=== PATIENT | female | born 1985 | race Hispanic/Latino ===

== ENCOUNTER 2018-06-24 02:34 | Emergency (ER) | payer SELFPAY ==
[2018-06-24 03:16] LABS: Absolute Lymphocytes (CBC) 2.6 K/uL (0.7-4.9); Absolute Monocytes 0.6 K/uL (0.1-1.3); Absolute Neutrophil 6.5 K/uL (1.8-8.0); Basophils % 0.5 % (0-1.3); Eosinophils % 1.4 % (0-4.4); Hematocrit 40.7 % (36.0-45.0); Lymphocytes % 26.3 % (15.3-44.8); MCV 86.8 fL (80-100); MPV 8.3 fL (7.6-11.3); Monocytes % 5.8 % (3.3-12.3); RBC Red Blood Cell Count 4.68 M/uL (3.86-4.86)
[2018-06-24 03:33] LABS: Albumin 3.6 g/dL (3.4-5.0); Bilirubin Direct 0.2 mg/dL (0-0.2); Bilirubin Total 0.6 mg/dL (0.2-1.0); Potassium 3.4 mmol/L (3.5-5.1); Protein, Total 7.2 g/dL (6.4-8.2)
[2018-06-24 05:14] LABS: Urine Blood 1+ (NEG); Urine Glucose NEGATIVE (NEG); Urine Protein NEGATIVE (NEG); Urine pH 5.5 (5.0-7.0)
--- NOTE | 2018-06-24 06:39 | EDPHYS ---
Physician Documentation [facility] Name: Milli Seymour Age: 32 yrs Sex: Female : 1985 Arrival Date: 06/24/2018 Time: 02:38 Bed 2 Private MD: ED Physician Arnol Philippe HPI: 06/24 03:49 This 32 yrs old Female presents to ER via Ambulatory with complaints of tw4 Abdominal Pain. 03:49 The patient presents with abdominal pain. Onset: The symptoms/episode began/occurred tw4 today. The symptoms do not radiate. Associated signs and symptoms: none. The symptoms are described as dull. Modifying factors: The symptoms are alleviated by nothing, the symptoms are aggravated by alcohol. The patient has not experienced similar symptoms in the past. CATERING [place]: 02:48 LMP 06/17/2018 bb Historical: - Allergies: 02:48 No Known Allergies; bb - Home Meds: 02:48 None [Active]; bb - PMHx: 02:48 None; bb - PSHx: 02:48 None; bb - Immunization history:: Adult Immunizations up to date. - Social history:: Smoking status: Patient/guardian denies using tobacco, Patient/guardian denies using alcohol. - Ebola Screening: : No symptoms or risks identified at this time. ROS: 03:49 Constitutional: Negative for fever, chills, and weight loss, Cardiovascular: Negative tw4 for chest pain, palpitations, and edema, Respiratory: Negative for shortness of breath, cough, wheezing, and pleuritic chest pain. 03:49 Back: Negative for injury and pain, MS/Extremity: Negative for injury and deformity, Skin: Negative for injury, rash, and discoloration, Neuro: Negative for headache, weakness, numbness, tingling, and seizure. 03:49 Abdomen/GI: Positive for abdominal pain, Negative for nausea and vomiting, nausea, vomiting, and diarrhea, nausea, vomiting. Exam: 03:49 Constitutional: This is a well developed, well nourished patient who is awake, alert, tw4 and in no acute distress. Head/Face: Normocephalic, atraumatic. Chest/axilla: Normal chest wall appearance and motion. Nontender with no deformity. No lesions are appreciated. Cardiovascular: Regular rate and rhythm with a normal S1 and S2. No gallops, murmurs, or rubs. Normal PMI, no JVD. No pulse deficits. Respiratory: Lungs have equal breath sounds bilaterally, clear to auscultation and percussion. No rales, rhonchi or wheezes noted. No increased work of breathing, no retractions or nasal flaring. 03:49 MS/ Extremity: Pulses equal, no cyanosis. Neurovascular intact. Full, normal range of motion. Neuro: Awake and alert, GCS 15, oriented to person, place, time, and situation. Cranial nerves II-XII grossly intact. Motor strength 5/5 in all extremities. Sensory grossly intact. Cerebellar exam normal. Normal gait. 03:49 Abdomen/GI: Inspection: abdomen appears normal, Bowel sounds: normal, Palpation: moderate abdominal tenderness, in all quadrants. Vital Signs: 02:48 BP 110 / 78; Pulse 72; Resp 16 S; Temp 98.4(O); Pulse Ox 99% on R/A; Weight 74.84 kg bb (R); Height 5 ft. 2 in. (157.48 cm) (R); Pain 10/10; 03:15 BP 103 / 72; Pulse 63; Resp 18; Pulse Ox 98% on R/A; ea 04:58 BP 100 / 63; Pulse 78; Resp 18; Pulse Ox 99% on R/A; ea 05:55 BP 105 / 71; Pulse 76; Resp 18; Pulse Ox 99% on R/A; ea 02:48 Body Mass Index 30.18 (74.84 kg, 157.48 cm) bb MDM: 03:03 Patient medically screened. 06/24 02:54 Order name: Basic Metabolic Panel; Complete Time: 03:40 ao 06/24 03:40 Interpretation: K 3.4; CL 109; GLUC 70; GFR 84. tw4 06/24 02:54 Order name: CBC with Diff; Complete Time: 03:40 ao 06/24 02:54 Order name: Creatinine for Radiology; Complete Time: 03:40 ao 06/24 02:54 Order name: Hepatic Function; Complete Time: 03:40 ao 06/24 03:41 Interpretation: GLOB 3.6; A/G 1.0. 4 06/24 02:54 Order name: Lipase; Complete Time: 03:40 ao 06/24 03:41 Interpretation: Within normal limits: LIP 105. tw4 06/24 04:07 Order name: Urine Dipstick--Ancillary (enter results); Complete Time: 05:49 cc 06/24 02:54 Order name: IV Saline Lock; Complete Time: 02:54 ao 06/24 02:54 Order name: Labs collected and sent; Complete Time: 03:16 ao 06/24 03:42 Order name: CT Abd/Pelvis - W/Contrast tw4 06/24 03:52 Order name: Urine Test (obtain specimen); Complete Time: 04:05 cc 06/24 03:54 Order name: Urine Dipstick-Ancillary (obtain specimen); Complete Time: 04:05 cc 06/24 04:07 Order name: Urine --Ancillary (enter results); Complete Time: 05:49 cc Administered Medications: 06:43 Drug: TORadol 30 mg Route: IVP; Site: right antecubital; ao 07:00 Follow up: Response: No adverse reaction ao Disposition: 06/24/18 06:38 Discharged to Home. Impression: Other ovarian cysts. - Condition is Stable. - Discharge Instructions: Ovarian Cyst, Ovarian Cyst, Xlla-qc-Lost. - Prescriptions for Ibuprofen 800 mg Oral Tablet - take 1 tablet by ORAL route every 8 hours As needed take with food; 30 tablet. Tylenol- Codeine #4 300-60 mg Oral Tablet - take 1 tablet by ORAL route every 6 hours As needed; 6 tablet. - Medication Reconciliation Form, Thank You Letter, Antibiotic Education, Prescription Opioid Use form. - Follow up: Private Physician; When: Upon discharge from the Emergency Department; Reason: Recheck today's complaints, Continuance of care. - Problem is new. - Symptoms have improved. Signatures: Dispatcher [employer] EDMS Zayda Quach RN RN bb Christian, Chelsea cc Page, Corey, PA PA cp Ortiz, Alex, RN RN ao Wadley, Terrence, MD MD tw4 Corrections: (The following items were deleted from the chart) 07:02 06:38 06/24/2018 06:38 Discharged to Home. Impression: Other ovarian cysts. Condition ao is Stable. Forms are Medication Reconciliation Form, Thank You Letter, Antibiotic Education, Prescription Opioid Use. Follow up: Private Physician; When: Upon discharge from the Emergency Department; Reason: Recheck today's complaints, Continuance of care. Problem is new. Symptoms have improved. tw4
--- NOTE | 2018-06-24 06:39 | ER ---
Nurse's Notes [facility] Name: Milli Seymour Age: 32 yrs Sex: Female : 1985 Arrival Date: 06/24/2018 Time: 02:38 Bed 2 Private MD: Diagnosis: Other ovarian cysts Presentation: 06/24 02:46 Presenting complaint: Patient states: she is having abdominal pain x 4 days with bb abdominal distention, pt denies N/V/D, denies fever or dysuria, pain is constant and is currently 10/10. Transition of care: patient was not received from another setting of care. Onset of symptoms was June 19, 2018. Risk Assessment: Do you want to hurt yourself or someone else? Patient reports no desire to harm self or others. Initial Sepsis Screen: Does the patient meet any 2 criteria? No. Patient's initial sepsis screen is negative. Does the patient have a suspected source of infection? No. Patient's initial sepsis screen is negative. Care prior to arrival: None. 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 - Social history:: Smoking status: Patient/guardian denies using tobacco, Patient/guardian denies using alcohol. - Ebola Screening: : No symptoms or risks identified at this time. Screenin:51 Abuse screen: Denies threats or abuse. Denies injuries from another. Nutritional ao screening: No deficits noted. Tuberculosis screening: No symptoms or risk factors identified. Fall Risk None identified. Assessment: 02:48 General: Appears in no apparent distress. comfortable, Behavior is calm, cooperative, ao appropriate for age. Pain: Complains of pain in abdomen Pain does not radiate. Pain currently is 8 out of 10 on a pain scale. Neuro: Level of Consciousness is awake, alert, obeys commands, Oriented to person, place, time, situation, Appropriate for age Moves all extremities. Full function Speech is normal, Facial symmetry appears normal. Cardiovascular: Capillary refill < 3 seconds Patient's skin is warm and dry. Respiratory: Airway is patent Respiratory effort is even, unlabored, Respiratory pattern is regular, symmetrical. GI: Abdomen is distended, Bowel sounds present X 4 quads. Abd is soft and non tender Reports lower abdominal pain, nausea, Pain is 8 out of 10 on a pain scale. : No signs and/or symptoms were reported regarding the genitourinary system. EENT: No signs and/or symptoms were reported regarding the EENT system. Derm: Skin is intact, Skin is pink, warm \T\ dry. normal, Skin temperature is warm. Musculoskeletal: No signs and/or symptoms reported regarding the musculoskeletal system. Circulation, motion, and sensation intact. Range of motion: intact in all extremities. 03:55 Reassessment: Patient and/or family updated on plan of care and expected duration. Pain ea level reassessed. Patient is alert, oriented x 3, equal unlabored respirations, skin warm/dry/pink. 04:06 Reassessment: Patient and/or family updated on plan of care and expected duration. Pain ea level reassessed. Patient is alert, oriented x 3, equal unlabored respirations, skin warm/dry/pink. Pt taken to CT. 04:25 Reassessment: Patient and/or family updated on plan of care and expected duration. Pain ea level reassessed. Patient is alert, oriented x 3, equal unlabored respirations, skin warm/dry/pink. returned from CT. 05:55 Reassessment: Patient and/or family updated on plan of care and expected duration. Pain ea level reassessed. Patient is alert, oriented x 3, equal unlabored respirations, skin warm/dry/pink. Vital Signs: 02:48 BP 110 / 78; Pulse 72; Resp 16 S; Temp 98.4(O); Pulse Ox 99% on R/A; Weight 74.84 kg bb (R); Height 5 ft. 2 in. (157.48 cm) (R); Pain 10/10; 03:15 BP 103 / 72; Pulse 63; Resp 18; Pulse Ox 98% on R/A; ea 04:58 BP 100 / 63; Pulse 78; Resp 18; Pulse Ox 99% on R/A; ea 05:55 BP 105 / 71; Pulse 76; Resp 18; Pulse Ox 99% on R/A; ea 02:48 Body Mass Index 30.18 (74.84 kg, 157.48 cm) bb ED Course: 02:38 Patient arrived in ED. do 02:43 Ismael Genao, RN is Primary Nurse. ao 02:48 Triage completed. bb 02:48 Arm band placed on Patient placed in an exam room, on a stretcher, on pulse oximetry. bb 02:50 Inserted saline lock: 20 gauge in right antecubital area, using aseptic technique. jb5 Blood collected. 02:51 Patient has correct armband on for positive identification. Pulse ox on. NIBP on. ao 03:03 Arnol Philippe MD is Attending Physician. tw4 03:53 Radiology exam delayed due to test not completed at this time. kw1 04:[address] via wheelchair. kw1 04:19 CT Abd/Pelvis - W/Contrast In Process Unspecified. EDMS 04:21 CT completed. Patient tolerated procedure well. Patient moved back from CT. kw1 07:00 No provider procedures requiring assistance completed. IV discontinued, intact, ao bleeding controlled, No redness/swelling at site. Pressure dressing applied. Administered Medications: 06:43 Drug: TORadol 30 mg Route: IVP; Site: right antecubital; ao 07:00 Follow up: Response: No adverse reaction ao Outcome: 06:38 Discharge ordered by . tw4 07:00 Discharged to home ambulatory. ao 07:00 Condition: stable 07:00 Discharge instructions given to patient, Instructed on discharge instructions, follow up and referral plans. Demonstrated understanding of instructions, follow-up care, medications, Prescriptions given X 2. 07:02 Patient left the ED. ao Signatures: Dispatcher [employer] Zayda Seals, RN Ismael Perez, RN RN Irma Dumas Jennifer jb5 Viola Maria RN Viktoriya Pablo ea kw1 Arnol Philippe MD MD tw4
[2018-06-24] MEDS ORDERED: KETOROLAC 30 MG/ML INJ ONE (06:48)
--- NOTE | 2018-06-24 08:19 | RAD REPORT ---
EXAM DESCRIPTION: CTAbdomen Pelvis W Contrast - 06/24/2018 6:02 am CLINICAL HISTORY: Abdominal pain. ABD PAIN COMPARISON: No comparisons TECHNIQUE: Biphasic CT imaging of the abdomen and pelvis was performed with 100 ml non-ionic IV cont rast. All CT scans are performed using dose optimization technique as appropriate and may include automated exposure control or mA/KV adjustment according to patient size. FINDINGS: The lung bases are clear. The liver, spleen, pancreas, adrenal glands and kidneys are within normal limits. No bowel obstruction, free air, free fluid or abscess. Small fat containing umbilical hernia. The jerel endix is normal. No evidence of significant lymphadenopathy. No suspicious bony findings. Tubal ligation clips noted. 4.8 x 2.3 cm hypodensity in the left adnexa probably represents an ovarian cyst. IMPRESSION: 4.8 x 2.3 cm left ovarian cyst suspected.
== END 2018-06-24 07:02 | disposition home or self-care (01) ==
LOC: ER 02:34
DX: N83.299 Other ovarian cyst, unspecified side (principal)
CPT/HCPCS: 36415; 74177; 80048; 80076; 81003; 81025; 83690; 85025; 96374; 99284; Q9967

== ENCOUNTER 2018-12-11 23:33 | Emergency (ER) | payer SELFPAY ==
[2018-12-12 03:08] LABS: Absolute Lymphocytes (CBC) 3.5 K/uL (0.7-4.9); Absolute Monocytes 0.7 K/uL (0.1-1.3); Absolute Neutrophil 6.3 K/uL (1.8-8.0); Basophils % 0.8 % (0-1.3); Eosinophils % 2.4 % (0-4.4); Hematocrit 41.3 % (36.0-45.0); Lymphocytes % 31.9 % (15.3-44.8); MPV 8.8 fL (7.6-11.3); Monocytes % 6.8 % (3.3-12.3); RBC Red Blood Cell Count 4.77 M/uL (3.86-4.86)
[2018-12-12 03:23] LABS: BUN Blood Urea Nitrogen 12 mg/dL (7-18); Bicarbonate 27 mmol/L (21-32); Glucose Level 93 mg/dL (74-106); Potassium 3.6 mmol/L (3.5-5.1); Sodium Level 141 mmol/L (136-145)
[2018-12-12 03:42] LABS: Urine Blood NEGATIVE (NEG); Urine Glucose NEGATIVE (NEG); Urine Protein NEGATIVE (NEG); Urine Specific Gravity 1.015 (1.005-1.030)
--- NOTE | 2018-12-12 03:46 | EDPHYS ---
Physician Documentation [facility] Name: Milli Seymour Age: 33 yrs Sex: Female : 1985 Arrival Date: 12/11/2018 Time: 23:44 Bed 2 Private MD: ED Physician Jatin Chavez HPI: 12/12 03:41 This 33 yrs old Female presents to ER via Ambulatory with complaints of Flank gs Pain. 03:41 The patient complains of pain in the left low back. The pain radiates to the abdomen. gs Onset: The symptoms/episode began/occurred 2 day(s) ago. Modifying factors: the symptoms are aggravated by movement. Associated signs and symptoms: Pertinent negatives: headache, hematuria, pain radiating to the lower extremities. Severity of pain: At its worst the pain was moderate in the emergency department the pain is unchanged. The patient has experienced similar episodes in the past, a few times. 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 - Social history:: Smoking status: Patient/guardian denies using tobacco. - Ebola Screening: : Patient denies exposure to infectious person Patient denies travel to an Ebola-affected area in the 21 days before illness onset. ROS: 12/12 03:41 All other systems are negative. gs Exam: 03:41 Head/Face: Normocephalic, atraumatic. Eyes: Pupils equal round and reactive to light, gs extra-ocular motions intact. Lids and lashes normal. Conjunctiva and sclera are non-icteric and not injected. Cornea within normal limits. Periorbital areas with no swelling, redness, or edema. ENT: Nares patent. No nasal discharge, no septal abnormalities noted. Tympanic membranes are normal and external auditory canals are clear. Oropharynx with no redness, swelling, or masses, exudates, or evidence of obstruction, uvula midline. Mucous membranes moist. Neck: Trachea midline, no thyromegaly or masses palpated, and no cervical lymphadenopathy. Supple, full range of motion without nuchal rigidity, or vertebral point tenderness. No Meningismus. Chest/axilla: Normal chest wall appearance and motion. Nontender with no deformity. No lesions are appreciated. Cardiovascular: Regular rate and rhythm with a normal S1 and S2. No gallops, murmurs, or rubs. Normal PMI, no JVD. No pulse deficits. Respiratory: Lungs have equal breath sounds bilaterally, clear to auscultation and percussion. No rales, rhonchi or wheezes noted. No increased work of breathing, no retractions or nasal flaring. Abdomen/GI: Soft, non-tender, with normal bowel sounds. No distension or tympany. No guarding or rebound. No evidence of tenderness throughout. Skin: Warm, dry with normal turgor. Normal color with no rashes, no lesions, and no evidence of cellulitis. MS/ Extremity: Pulses equal, no cyanosis. Neurovascular intact. Full, normal range of motion. Neuro: Awake and alert, GCS 15, oriented to person, place, time, and situation. Cranial nerves II-XII grossly intact. Motor strength 5/5 in all extremities. Sensory grossly intact. Cerebellar exam normal. Normal gait. 03:41 Constitutional: The patient appears alert, awake. 03:41 Back: pain, that is mild, CVA tenderness, that is mild, is noted on the left. Vital Signs: 12/11 23:59 BP 105 / 70; Pulse 82; Resp 18; Temp 97.2; Pulse Ox 99% on R/A; Weight 65.77 kg; Height aa1 5 ft. 2 in. (157.48 cm); Pain 10/10; 12/12 01:45 BP 96 / 60; Pulse 51; Resp 16 S; Pulse Ox 100% on R/A; jd3 03:26 BP 92 / 61; Pulse 56; Resp 16 S; Pulse Ox 99% on R/A; jd3 12/11 23:59 Body Mass Index 26.52 (65.77 kg, 157.48 cm) aa1 MDM: 02:11 Patient medically screened. 03:41 Differential diagnosis: nephrolithiasis, pyelonephritis, UTI, ECTOPIC. Data reviewed: vital signs, nurses notes, lab test result(s), radiologic studies. Counseling: I had a detailed discussion with the patient and/or guardian regarding: the historical points, exam findings, and any diagnostic results supporting the discharge/admit diagnosis, lab results, radiology results, the need for outpatient follow up. Response to treatment: the patient's symptoms have markedly improved after treatment, and as a result, I will discharge patient. 12/12 02:12 Order name: CBC with Diff 12/12 02:12 Order name: Basic Metabolic Panel 12/12 02:12 Order name: Urine Microscopic Only 12/12 02:12 Order name: CT Stone Protocol 12/12 02:36 Order name: Urine Dipstick--Ancillary (enter results) [facility] 12/12 02:36 Order name: Urine --Ancillary (enter results) [facility] 12/12 02:12 Order name: Urine Test (obtain specimen); Complete Time: 03:04 12/12 02:12 Order name: Urine Dipstick-Ancillary (obtain specimen); Complete Time: 03:04 Administered Medications: No medications were administered Disposition: 12/12/18 03:45 Discharged to Home. Impression: Low back pain. - Condition is Stable. - Discharge Instructions: Back Pain, Adult. - Prescriptions for Naprosyn 500 mg Oral Tablet - take 1 tablet by ORAL route 2 times per day take with food; 20 tablet. - Medication Reconciliation Form, Thank You Letter, Antibiotic Education, Prescription Opioid Use, Work release form form. - Follow up: Private Physician; When: 2 - 3 days; Reason: Re-evaluation by your physician. Signatures: Dispatcher [employer] Amanda Valverde RN RN aa1 Jatin Chavez MD MD Hector Cornelius RN RN jd3 Corrections: (The following items were deleted from the chart) 04:06 03:45 12/12/2018 03:45 Discharged to Home. Impression: Low back pain. Condition is jd3 Stable. Forms are Medication Reconciliation Form, Thank You Letter, Antibiotic Education, Prescription Opioid Use. Follow up: Private Physician; When: 2 - 3 days; Reason: Re-evaluation by your physician. gs
--- NOTE | 2018-12-12 03:46 | ER ---
Nurse's Notes [facility] Name: Milli Seymour Age: 33 yrs Sex: Female : 1985 Arrival Date: 12/11/2018 Time: 23:44 Bed 2 Private MD: Diagnosis: Low back pain Presentation: 12/11 23:58 Presenting complaint: Patient states: L flank pain since yesterday morning. Denies N/V aa1 or difficulty urinating. Transition of care: patient was not received from another setting of care. Onset of symptoms was December 10, 2018. Risk Assessment: Do you want to hurt yourself or someone else? Patient reports no desire to harm self or others. Initial Sepsis Screen: Does the patient meet any 2 criteria? No. Patient's initial sepsis screen is negative. Does the patient have a suspected source of infection? No. Patient's initial sepsis screen is negative. Care prior to arrival: None. 23:58 Method Of Arrival: Ambulatory aa1 23:58 Acuity: YAEL 3 aa1 Triage Assessment: 23:59 General: Appears in no apparent distress. uncomfortable, Behavior is calm, cooperative, aa1 appropriate for age. 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 - Social history:: Smoking status: Patient/guardian denies using tobacco. - Ebola Screening: : Patient denies exposure to infectious person Patient denies travel to an Ebola-affected area in the 21 days before illness onset. Screenin/28 00:34 Abuse screen: Denies threats or abuse. Nutritional screening: No deficits noted. jd3 Tuberculosis screening: No symptoms or risk factors identified. Fall Risk Ambulatory Aid- None/Bed Rest/Nurse Assist (0 pts). Gait- Normal/Bed Rest/Wheelchair (0 pts) Mental Status- Oriented to own ability (0 pts). Total Moreau Fall Scale indicates No Risk (0-24 pts). Assessment: 00:33 General: Appears in no apparent distress. uncomfortable, Behavior is calm, cooperative, jd3 appropriate for age, Reports pain with palpation to left flank. Pain: Complains of pain in left flank Pain radiates to anterior aspect of left lateral abdomen Quality of pain is described as sharp, tender. Neuro: Level of Consciousness is awake, alert, obeys commands, Oriented to person, place, time, situation, Appropriate for age. Cardiovascular: Capillary refill < 3 seconds Patient's skin is warm and dry. Respiratory: Airway is patent Respiratory effort is even, unlabored, Respiratory pattern is regular, symmetrical. GI: Abdomen is round non-distended, Bowel sounds present X 4 quads. Abd is soft and non tender X 4 quads. Patient currently denies nausea, vomiting. : No signs and/or symptoms were reported regarding the genitourinary system. EENT: No signs and/or symptoms were reported regarding the EENT system. Derm: Skin is intact, Skin is dry, Skin is normal, Skin temperature is warm. Musculoskeletal: Circulation, motion, and sensation intact. Range of motion: intact in all extremities. 01:41 Reassessment: Patient appears in no apparent distress at this time. Patient and/or jd3 family updated on plan of care and expected duration. Pain level reassessed. Patient is alert, oriented x 3, equal unlabored respirations, skin warm/dry/pink. 03:26 Reassessment: Patient appears in no apparent distress at this time. Patient and/or jd3 family updated on plan of care and expected duration. Pain level reassessed. Patient is alert, oriented x 3, equal unlabored respirations, skin warm/dry/pink. 03:52 Reassessment: Patient appears in no apparent distress at this time. Patient and/or jd3 family updated on plan of care and expected duration. Pain level reassessed. Patient is alert, oriented x 3, equal unlabored respirations, skin warm/dry/pink. Vital Signs: 12/11 23:59 BP 105 / 70; Pulse 82; Resp 18; Temp 97.2; Pulse Ox 99% on R/A; Weight 65.77 kg; Height aa1 5 ft. 2 in. (157.48 cm); Pain 10; 12/12 01:45 BP 96 / 60; Pulse 51; Resp 16 S; Pulse Ox 100% on R/A; jd3 03:26 BP 92 / 61; Pulse 56; Resp 16 S; Pulse Ox 99% on R/A; jd3 12/11 23:59 Body Mass Index 26.52 (65.77 kg, 157.48 cm) aa1 ED Course: 12/11 23:44 Patient arrived in ED. es 23:59 Triage completed. aa1 23:59 Arm band placed on left wrist. Patient placed in waiting room, Patient notified of wait aa1 time. 12/12 00:24 Hector Cornelius RN is Primary Nurse. jd3 00:27 Jacek Wagner PA is PHCP. [facility] [place] 00:27 Jatin Chavez MD is Attending Physician. [facility] 00:35 Patient has correct armband on for positive identification. Bed in low position. Call jd3 light in reach. Side rails up X 1. Adult w/ patient. 01:22 Jatin Chavez MD is Attending Physician. 02:35 Inserted saline lock: 20 gauge in right antecubital area, using aseptic technique. jd3 Blood collected. 02:39 CT completed. Patient tolerated procedure well. Patient moved to CT via wheelchair. Patient moved back from CT. 02:47 CT Stone Protocol In Process Unspecified. EDMS 04:05 No provider procedures requiring assistance completed. IV discontinued, intact, jd3 bleeding controlled, No redness/swelling at site. Pressure dressing applied. Administered Medications: No medications were administered Outcome: 03:45 Discharge ordered by . 04:05 Discharged to home via wheelchair, with family. jd3 04:05 Condition: stable 04:05 Discharge instructions given to patient, Instructed on discharge instructions, follow up and referral plans. medication usage, Demonstrated understanding of instructions, follow-up care, medications, Prescriptions given X 1. 04:06 Patient left the ED. jd3 Signatures: Dispatcher [employer] EDMS Amanda Carter RN RN aa1 Jacek Wagner PA PA [facility] Ashley Gannon Ervin Jatin Chavez MD MD Hector Cornelius RN RN jd3 Corrections: (The following items were deleted from the chart) 00:41 00:33 General: Appears in no apparent distress. uncomfortable, Behavior is calm, jd3 cooperative, appropriate for age, jd3 00:41 00:33 Pain: Complains of pain in left flank Pain radiates to anterior aspect of left jd3 lateral abdomen Quality of pain is described as sharp, tender, jd3
[2018-12-12 04:05] LABS: Urine Bacteria 20-50 /HPF (<20); Urine Culture Reflex Order REFLEXED; Urine RBC <5 /HPF (NONE SEEN)
--- NOTE | 2018-12-12 12:58 | RAD REPORT ---
EXAM DESCRIPTION: CT - Stone Protocol - 12/12/2018 4:59 am CLINICAL HISTORY: The patient is 33 years old and is Female; FLANK PAIN TECHNIQUE: Axial computed tomography images of the abdomen and pelvis without intravenous contrast. Sagittal and coronal reformatted images were created and reviewed. This CT exam was performed usi ng one or more of the following dose reduction techniques: automated exposure control, adjustment o f the mA and/or kV according to patient size, and/or use of iterative reconstruction technique. COMPARISON: No relevant prior studies available. FINDINGS: LUNG BASES: Unremarkable. No mass. No consolidation. ABDOMEN: LIVER: Homogeneous without focal mass. GALLBLADDER AND BILE DUCTS: The gallbladder is contracted. PANCREAS: Unremarkable. No ductal dilation. SPLEEN: Unremarkable. ADRENALS: Unremarkable. No mass. KIDNEYS AND URETERS: No obstructing stones. No hydronephrosis. STOMACH AND BOWEL: The stomach is distended with food contents. The small bowel is normal in saeid iber. A moderate amount of stool is present throughout the colon. There is no mucosal thickening or e vidence of bowel obstruction. PELVIS: APPENDIX: The appendix is normal in caliber without surrounding inflammation. BLADDER: Unremarkable. No stones. REPRODUCTIVE: Evidence of tubal ligation is noted. Both sets of tubal clips appear to be malposi tioned. The uterus and ovaries are unremarkable. ABDOMEN and PELVIS: INTRAPERITONEAL SPACE: Trace free fluid is present within the pelvis which is likely physiologic . No free air. BONES/JOINTS: No acute fracture. SOFT TISSUES: Small fat containing umbilical hernia is present. VASCULATURE: Unremarkable. No abdominal aortic aneurysm. LYMPH NODES: Unremarkable. No enlarged lymph nodes. IMPRESSION: No acute findings on this noncontrasted CT of the abdomen and pelvis to explain the nichol ent's symptoms. Electronically signed by: Echo Tavarez MD 12/12/2018 2:54 AM CDT Due to temporary technical issues with the PACS/Fluency reporting system, reports are being signed by the in house radiologist as a courtesy to ensure prompt reporting. The interpreting radiologist is f ully responsible for the content of the report.
== END 2018-12-12 04:06 | disposition home or self-care (01) ==
LOC: ER 23:33
DX: M54.5 Low back pain (principal)
CPT/HCPCS: 36415; 74176; 76377; 80048; 81003; 81015; 81025; 85025; 87086; 87088; 99284

== ENCOUNTER 2021-11-16 07:15 | Emergency (ER) | payer SELFPAY ==
--- OUTSIDE RECORDS SUMMARY | 2021-11-16 07:18 | XMS REPORT | Continuity of Care Document ---
:1985 Author Organization [facility] t Address [address] [place] [address] Care Team Providers Name Role Phone Pcp, Does Not Have A Primary Care Physician Doctor Unassigned, Name Attending Clinician Unavailable Michi DURAND S Attending Clinician Problems Condition Condition Condition Status Onset Resolution Last Treating Co mments Source Name Details Category Date Date Treatment Clinician Date Encounter Encounter Disease Active Uni vers for for 1-25 ity of initial initial 00:00: [place] prescripti prescripti 00 Me dical on of on of Branch injectable injectable contracept contracept alirio alirio Allergies, Adverse Reactions, Alerts Allergy Allergy Status Severity Reaction(s) Onset Inactive Treating Comm ents Source Name Type Date Date Clinician NO KNOWN Drug Active Univers ALLERGIE Class ity of S [facility] Social History Social Habit Start Date Stop Date Quantity Comments Source Alcohol intake 2019-10-28 2019-10-28 0 /d [facility] 00:00:00 00:00:00 [facility] Tobacco use and 2015-06-21 2015-06-21 Never used [facility] exposure 00:00:00 00:00:00 [facility] Sex Ass[birth year] [facility] 00:00:00 00:00:00 [facility] Smoking Status Start Date Stop Date Source Never smoker [facility] Medications Ordered Filled Start Stop Current Ordering Indication Dosage Frequency Signature Comments Components Source Medication Medication Date Date Medication? Clinician (SIG) Name Name ketorolac 2020- No 30mg 30 mg, Unive rs (TORADOL) 10-28 Slow IV ity of injection 10:45: 09:34 [place], [place] 30 mg 00 :00 ONCE, 1 Medical dose, Tue Branch 10/28/19 at 0445, JEREMY
Fa culty member approving Restricted medication : REDDY HWANG traMADol 2019-0 Yes [id number] 50mg Take 1 Un roger (ULTRAM) 50 2-11 tablet by ity of mg tablet 00:00: mouth 00 every 6 Medical (six) Branch hours as needed for Pain (scale 7-10). naproxen 2019- Yes [id number] 550mg Take 1 U nivers sodium 550 2-11 tablet by ity of mg tablet 00:00: mouth 2 (two) Medical times Branch daily with meals. traMADol 2019-0 Yes [id number] 50mg Take 1 Un roger (ULTRAM) 50 2-11 tablet by ity of mg tablet 00:00: mouth 00 every 6 Medical (six) Branch hours as needed for Pain (scale 7-10). naproxen 2019-0 Yes [id number] 550mg Take 1 U nivers sodium 550 2-11 tablet by ity of mg tablet 00:00: mouth (two) Medical times Branch daily with meals. medroxyPROG 2014-09 Yes [id number] 150mg Univers ESTERone 0-05 ity of (DEPO-PROVE 20:45: [place] RA) 00 Medical injection Branch 150 mg medroxyPROG 2014-09 Yes [id number] 150mg Univers ESTERone 0-05 ity of (DEPO-PROVE 20:45: [place] RA) 00 Medical injection Branch 150 mg Immunizations Ordered Filled Immunization Date Status Comments [facility] e Immunization Name Name Tdap 2015-06-21 Completed [facility] 00:00:00 [place] [facility] TDAP 2015-06-21 Completed [facility] 00:00:00 [facility] Vital Signs Vital Name Observation Time Observation Value Comments Source Systolic blood 2019-10-28 09:00:00 113 mm[Hg] Univer sity of pressure [facility] Diastolic blood 2019-10-28 09:00:00 81 mm[Hg] Unive rsity of pressure [facility] Heart rate 2019-10-28 09:00:00 77 /min Universi ty of [facility] Respiratory rate 2019-10-28 09:00:00 18 /min [facility] Oxygen saturation in 2019-10-28 09:00:00 97 /min [facility] Arterial blood by [facility] Pulse oximetry Branch Body height 2019-10-28 08:57:00 157.5 cm [facility] Body weight 2019-10-28 08:57:00 58.514 kg [facility] BMI 2019-10-28 08:57:00 23.59 kg/m2 [facility] Procedures Procedure Date / Time Performing Clinician Source Performed DISCLOSURE AND CONSENT, 2021-10-18 06:01:00 Doctor Unassigned, N o [facility] MEDICAL AND SURGICAL Name Medical [facility] PROCEDURES LIPASE 2019-10-28 09:01:00 Reddy Hwang [facility] COMP. METABOLIC PANEL 2019-10-28 09:01:00 Reddy Hwang [facility] ([id number]) [facility] CBC WITH DIFFERENTIAL 2019-10-28 09:01:00 Reddy Hwang [facility] URINALYSIS 2019-10-28 09:01:00 Reddy Hwang [facility] POCT TEST 2019-10-28 09:00:00 Reddy Hwang [facility] NOTICE OF PRIVACY 2019-10-28 08:46:30 Doctor Unassyolette, No Univ [facility] PRACTICES [facility] CONSENT/REFUSAL FOR 2019-10-28 08:46:14 [facility]igned, [facility] Encounters Start End Encounter Admission Attending Care Care Encounter Source Date/Time Date/Time Type Type Clinicians Facility Department ID 2021-10-18 2021-10-18 Orders Doctor PAUL [id number] Univers 00:00:00 00:00:00 Only Unassigned, CHERIE [id number] ity [facility] [id number] [facility] 009 Branch 2020-04-23 2020-04-23 Outpatient R [facility] [id number] Univers 16:20:00 16:20:[facility] 2020-04-23 2020-04-23 Outpatient R [facility] [id number] Univers 16:20:00 16:20:00 [facility] 2019-10-28 2019-10-28 Emergency Michi [facility] [id number] Univers 02:51:21 03:48:00 [id number] [id number] [place] [id number] Branch Results Test Description Test Time Test Comments Results Result Comments Source Complete Metabolic Panel 2019-10-28 09:25:00 Test Item Value Reference Range Interpretation Comme nts NA (test code = 3674096086) 140 mmol/L 135-145 K (test code = 4157336102) 3.7 mmol/L 3.5-5 CL (test code = 1350978958) 108 mmol/L 98-108 CO2 TOTAL (test code = 24 mmol/L 23-31 0491829636) AGAP (test code = 3379944314) 2-16 BUN (test code = 4081491303) 10 mg/dL 7-23 GLUCOSE (test code = 9120040318) 107 mg/dL 70-110 CREATININE (test code = 0.63 mg/dL 0.5-1.04 4332701132) TOTAL BILI (test code = 0.5 mg/dL 0.1-1.4 3774228264) CALCIUM (test code = 8028499797) 9.4 mg/dL 8.6-10.6 T PROTEIN (test code = 7.5 g/dL 6.3-8.2 8926227976) ALBUMIN (test code = 9729784510) 4.5 g/dL 3.5-5 ALK PHOS (test code = 9450577487) 74 U/L 34-122 ALTv (test code = 1742-6) 32 U/L 5-35 AST(SGOT) (test code = 31 U/L 13-40 4180162852) eGFR Calculation (Non- mL/min/1.73m2 [place]) (test code = 5690975520) eGFR Calculation ( mL/min/1.73m2 [place]) (test code = 7483498343) MATEO (test code = MATEO) Association of Glomerular Filtration Rate (GFR) and Staging of Kidney Disease* + +--------- + ----+| GFR (mL/min/1.73 m2) ?| With Kidney Damage ?| ?Without Kidney Damage+ +--- + +| ?>90 ?| ?Stage one ?| ? Normal ?+ +-------- + -----+| ?60-89 ?| ?Stage two ?| ? Decreased GFR ? + +--------- + ----+| ?30-59 ?| ?Stage three ?| ? Stage three ? + +--------- + ----+| ?15-29 ?| ?Stage four ? | ? Stage four ?+ +-------- + -----+| ?<15 (or dialysis) ? ?| ?Stage five ? | ? Stage five ?+ +-------- + -----+ *Each stage assumes the associated GFR level has been in effect for at least three months. ?Stages 1 to 5, with or without kidney disease, indicate chronic kidney disease. Notes: Determination of stages one and two (with eGFR >59mL/min/1.73 m2) requires estimation of kidney damage for at least three months as defined by structural or functional abnormalities of the kidney, manifested by either:Pathological abnormalities or Markers of kidney damage (including abnormalities in the composition of the blood or urine or abnormalities in imaging tests). [facility] [id number] 09:25:00 Test Item Value Reference Range Interpretation Comments LIPASE (test code = 1815098615) 102 U/L 0-220 Lab Interpretation (test code = Normal 02494-4) [facility] 09:23:00 Test Item Value Reference Range Interpretation Comments APPEARANCE (test code = Clear Clear 1257969468) COLOR (test code = Yellow Yellow 0832897099) PH (test code = 4.8-8.0 9937006691) SP GRAVITY (test code = 1.003-1.030 9950012780) GLU U QUAL (test code = Normal Normal 9152467066) BLOOD (test code = 2+ Negative A 7839909584) KETONES (test code = Negative Negative 3335581954) PROTEIN (test code = Negative Negative 2887-8) UROBILIN (test code = Normal Normal 3191066303) BILIRUBIN (test code = Negative Negative 2484080406) NITRITE (test code = Negative Negative 7675235133) LEUK MEHDI (test code = Negative Negative 1039286016) RBC/HPF (test code = See_Comment [Autom ated message] 5752336735) The system [employer] generated this result transmitted ref erence range: 0 - 3 HP F. The reference range was not used to int erpret this result as normal/abnormal . WBC/HPF (test code = See_Comment [Autom ated message] 0870515722) The system [employer] generated this result transmitted ref erence range: 0 - 5 HP F. The reference range was not used to int erpret this result as normal/abnormal . BACTERIA (test code = Few Negative A 1783022655) MUCOUS (test code = Slight Negative LPF A 5503186109) SQ EPITH (test code = HPF 5671551770) Lab Interpretation (test Abnormal code = 26582-0) [facility] WITH [id number] 09:10:00 Test Item Value Reference Range Interpretation Comments WBC (test code = See_Comment [Automated 6690-2) message] The sy stem which generated this result transmitted reference range : 4.30 - 11.10 10*3/?L. The reference range was not used to interpret this result as normal/abnormal . RBC (test code = See_Comment [Automated 789-8) message] The sy stem which generated this result transmitted reference range : 3.93 - 5.25 10*6/?L. The reference range was not used to interpret this result as normal/abnormal . HGB (test code = 13.5 g/dL 11.6-15 718-7) HCT (test code = 40.8 % 35.7-45.2 4544-3) MCV (test code = 87.7 fL 80.6-95.5 787-2) MCH (test code = 29.0 pg 25.9-32.8 785-6) MCHC (test code = 33.1 g/dL 31.6-35.1 786-4) RDW-SD (test code = 39.2 fL 39-49.9 53367-9) RDW-CV (test code = 12.1 % 12-15.5 788-0) PLT (test code = See_Comment [Automated 777-3) message] The sy stem which generated this result transmitted reference range : 166 - 358 10*3/ ?L. The reference r rachana was not used to interpret this result as normal/abnormal . MPV (test code = 9.2 fL 9.5-12.9 L 24225-0) NRBC/100 WBC (test See_Comment [Automat ed code = 1775182163) message] The system which generated this result transmitted reference range : 0.0 - 10.0 /100 WBCs. The refer ence range was not u sed to interpret th is result as normal/abnormal . NRBC x10^3 (test code <0.01 See_Comment [Auto mated = 0110088853) message] The s ystem which generated this result transmitted reference range : 10*3/?L. The reference range was not used to interpret this result as normal/abnormal . GRAN MAT (NEUT) % 65.3 % (test code = 770-8) IMM GRAN % (test code 0.50 % = 7480691254) LYMPH % (test code = 25.2 % 736-9) MONO % (test code = 7.1 % 5905-5) EOS % (test code = 1.5 % 713-8) BASO % (test code = 0.4 % 706-2) GRAN MAT x10^3(ANC) 7.13 10*3/uL 1.88-7.09 H (test code = 0268330980) IMM GRAN x10^3 (test 0.05 10*3/uL 0-0.06 code = 8552959488) LYMPH x10^3 (test code 2.75 10*3/uL 1.32-3.29 = 731-0) MONO x10^3 (test code 0.77 10*3/uL 0.33-0.92 = 742-7) EOS x10^3 (test code = 0.16 10*3/uL 0.03-0.39 711-2) BASO x10^3 (test code 0.04 10*3/uL 0.01-0.07 = 704-7) Lab Interpretation Abnormal (test code = 77354-7) [facility] [id number] 09:00:00 Test Item Value Reference Range Interpretation Comments POCT PREG (test code = 1605) Negative On board controls acceptable with Present C Line (test code = 3574) POCT PREG LOT # (test code = 3575) [id number] POCT PREG TEST DATE (test 04/16/2021 code = 3576) Lab Interpretation (test code = Normal 98070-6) [facility]"
[2021-11-16 07:54] LABS: Hematocrit 42.5 % (36.0-45.0); Lymphocytes % 24.1 % (15.3-44.8); MPV 8.1 fL (7.6-11.3); RBC Red Blood Cell Count 4.99 M/uL (3.86-4.86)
[2021-11-16 07:56] LABS: Protime INR 1.08
[2021-11-16 08:16] LABS: ALT/SGPT 27 U/L (12-78); AST/SGOT 20 U/L (15-37); Albumin 3.6 g/dL (3.4-5.0); Alkaline Phosphatase 106 U/L (45-117); BUN Blood Urea Nitrogen 12 mg/dL (7-18); Bicarbonate 22 mmol/L (21-32); Bilirubin Direct 0.1 mg/dL (0-0.2); Bilirubin Total 0.5 mg/dL (0.2-1.0); Glucose Level 106 mg/dL (74-106); Magnesium 2.6 mg/dL (1.8-2.4); NT PRO-BNP 95 pg/mL (<125); Potassium 3.6 mmol/L (3.5-5.1); Protein, Total 7.9 g/dL (6.4-8.2); Sodium Level 141 mmol/L (136-145)
[2021-11-16 08:18] LABS: Troponin High Sensitivity < 3.00 pg/mL (<58.9)
[2021-11-16] MEDS ORDERED: MORPHINE 4 MG/ML SYR ONE (08:20)
[2021-11-16] MEDS ORDERED: NA CHLORIDE 0.9% 1,000 ML ONE (08:20)
[2021-11-16] MEDS ORDERED: ONDANSETRON 4 MG/2 ML VIAL ONE (08:20)
--- NOTE | 2021-11-16 08:26 | RAD REPORT ---
EXAM DESCRIPTION: RAD - Chest Single View - 11/16/2021 8:10 am CLINICAL HISTORY: CHEST PAIN COMPARISON: No comparisons FINDINGS: Lines: None. Lungs: No evidence of edema or pneumonia. Pleural: No significant pleural effusions or pneumothorax. Cardiac: The heart size is within normal limits. Bones: No acute fractures. Other: IMPRESSION: No acute cardiopulmonary disease.
--- NOTE | 2021-11-16 08:59 | RAD REPORT ---
EXAM DESCRIPTION: US - Abdomen Exam Limited - 11/16/2021 8:40 am CLINICAL HISTORY: gb COMPARISON: Stone Protocol dated 12/12/2018 FINDINGS: Gallbladder sludge is present. The gallbladder wall measures 4 millimeters and is borderli ne thickening. The common bile duct measures 4 millimeters. No shadowing stones are identified. No pe richolecystic fluid. IMPRESSION: Gallbladder sludge and mild gallbladder wall thickening. Neither findings are specific t o acute cholecystitis. If there is a high clinical concern for acute cholecystitis, could consider HI DA scan.
--- NOTE | 2021-11-16 09:35 | EDPHYS ---
Physician Documentation [facility] – [place], [place] Name: Milli Seymour Age: 36 yrs Sex: Female : 1985 Arrival Date: 11/16/2021 Time: 07:18 Bed 16 Private MD: ED Physician Linus Prado HPI: 11/16 08:11 This 36 yrs old Female presents to ER via Wheelchair with complaints of Cough, ma2 Congestion. 08:12 This 36 yrs old Female presents to ER via Wheelchair with complaints of ma2 epigastric pain. 08:12 56-year-old female with no past medical history here with epigastric pain radiates to ma2 the back patient states that she cannot take a deep breath it hurts to breathe, however she does not have cough shortness of breath or dyspnea. Patient vomited once. EMT I/99: 07:24 LMP 10/28/2021 jg9 Historical: - Allergies: 07:23 No Known Allergies; jg9 - PMHx: 07:23 None; jg9 - Immunization history:: Adult Immunizations Client reports having NOT received the Covid vaccine. Pneumococcal vaccine is up to date, Flu vaccine is up to date. - Social history:: Smoking status: Patient denies any tobacco usage or history of. - Family history:: not pertinent. ROS: 08:12 Constitutional: Negative for fever, chills, and weight loss. ma2 08:12 All other systems are negative. Exam: 08:12 Constitutional: This is a well developed, well nourished patient who is awake, alert, ma2 and in no acute distress. Head/Face: Normocephalic, atraumatic. Eyes: Pupils equal round and reactive to light, extra-ocular motions intact. Lids and lashes normal. Conjunctiva and sclera are non-icteric and not injected. Cornea within normal limits. Periorbital areas with no swelling, redness, or edema. ENT: Nares patent. No nasal discharge, no septal abnormalities noted. Tympanic membranes are normal and external auditory canals are clear. Oropharynx with no redness, swelling, or masses, exudates, or evidence of obstruction, uvula midline. Mucous membranes moist. Neck: Trachea midline, no thyromegaly or masses palpated, and no cervical lymphadenopathy. Supple, full range of motion without nuchal rigidity, or vertebral point tenderness. No Meningismus. Chest/axilla: Normal chest wall appearance and motion. Nontender with no deformity. No lesions are appreciated. Cardiovascular: Regular rate and rhythm with a normal S1 and S2. No gallops, murmurs, or rubs. Normal PMI, no JVD. No pulse deficits. Respiratory: Lungs have equal breath sounds bilaterally, clear to auscultation and percussion. No rales, rhonchi or wheezes noted. No increased work of breathing, no retractions or nasal flaring. Abdomen/GI: Epigastric tenderness, soft, non-tender, with normal bowel sounds. No distension or tympany. No guarding or rebound. No evidence of tenderness throughout. Skin: Warm, dry with normal turgor. Normal color with no rashes, no lesions, and no evidence of cellulitis. MS/ Extremity: Pulses equal, no cyanosis. Neurovascular intact. Full, normal range of motion. Neuro: Awake and alert, GCS 15, oriented to person, place, time, and situation. Cranial nerves II-XII grossly intact. Motor strength 5/5 in all extremities. Sensory grossly intact. Cerebellar exam normal. Normal gait. Vital Signs: 07:21 BP 104 / 75; Pulse 73; Resp 20 S; Temp 98.1; Pulse Ox 100% on R/A; Weight 75.75 kg; jg9 Height 5 ft. 2 in. (157.48 cm); 07:35 BP 109 / 75; Pulse 78; Resp 18; Pulse Ox 100% on R/A; ww 10:38 BP 96 / 63; Pulse 64; Resp 22; Pulse Ox 100% on R/A; ww 07:21 Body Mass Index 30.54 (75.75 kg, 157.48 cm) jg9 MDM: 07:32 Patient medically screened. ma2 09:32 Differential Diagnosis: Other Differential diagnoses include gastritis, hepatitis, ma2 musculoskeletal pain, ultrasound shows borderline gallbladder wall thickening and possible sludge, recommends HIDA scan if clinically warranted, however at this time patient symptom has resolved she would like to be discharged she does not want any more testing, I discussed need to follow-up with general surgeon in 1 to 2 days, and return to ER for any worsening pain or fever. Patient understands all instruction. Data reviewed: vital signs, nurses notes, EMS record. Counseling: I had a detailed discussion with the patient and/or guardian regarding: the historical points, exam findings, and any diagnostic results supporting the discharge/admit diagnosis, the presence of at least one elevated blood pressure reading (>120/80) during this emergency department visit, lab results, radiology results, the need for outpatient follow up. Response to treatment: the patient's symptoms have resolved after treatment. 11/16 07:28 Order name: Basic Metabolic Panel [facility] [place] 11/16 07:28 Order name: CBC with Diff; Complete Time: 08:12 jg9 11/16 07:28 Order name: LFT's [facility] [place] 11/16 07:28 Order name: Magnesium 9 11/16 07:28 Order name: NT PRO-BNP; Complete Time: 09:00 j9 11/16 07:28 Order name: PT-INR; Complete Time: 08:12 jg9 11/16 07:28 Order name: Troponin HS; Complete Time: 09:00 j9 11/16 07:28 Order name: XRAY Chest (1 view); Complete Time: 09:00 jg9 11/16 07:29 Order name: Basic Metabolic Panel; Complete Time: 09:00 EDMS 11/16 07:29 Order name: Liver (Hepatic) Function; Complete Time: 09:00 EDMS 11/16 07:29 Order name: Magnesium; Complete Time: 09:00 EDMS 11/16 08:07 Order name: Lipase ma2 11/16 08:07 Order name: US Abdomen Limited; Complete Time: 09:00 ma2 11/16 07:28 Order name: EKG; Complete Time: 07:29 jg9 11/16 07:28 Order name: Cardiac monitoring; Complete Time: 07:48 jg9 11/16 07:28 Order name: EKG - Nurse/Tech; Complete Time: 07:48 jg9 11/16 07:28 Order name: IV Saline Lock; Complete Time: 07:48 jg9 11/16 07:28 Order name: Labs collected and sent; Complete Time: 07:48 jg9 11/16 07:28 Order name: O2 Per Protocol; Complete Time: 07:48 jg9 11/16 07:28 Order name: O2 Sat Monitoring; Complete Time: 07:48 jg9 Administered Medications: 08:45 Drug: Zofran (Ondansetron) 4 mg Route: IVP; Site: right antecubital; ww 09:03 Drug: morphine 4 mg Route: IVP; Site: right antecubital; ww 09:13 Drug: NS 0.9% 1000 ml Route: IV; Rate: 1 bolus; Site: left forearm; ww Disposition Summary: 11/16/21 09:34 Discharge Ordered Location: Home ma2 Condition: Stable ma2 Diagnosis - Upper abdominal pain, unspecified ma2 - Other cholelithiasis without obstruction ma2 Followup: ma2 - With: Private Physician - When: Tomorrow - Reason: If symptoms return, Continuance of care Followup: ma2 - With: Evelio Madera MD - When: Tomorrow - Reason: If symptoms return, Continuance of care Discharge Instructions: - Discharge Summary Sheet ma2 - Abdominal Pain, Adult ma2 - Cholelithiasis, Iuno-wu-[id number] ma2 Forms: - Medication Reconciliation Form ma2 - Thank You Letter ma2 - Antibiotic Education ma2 - Prescription Opioid Use ma2 - Work release form Prescriptions: - Zofran 4 mg Oral Tablet - take 1 tablet by ORAL route every 12 hours As needed; 20 tablet; Refills: 0, ma2 Product Selection Permitted - Diclofenac Sodium 75 mg Oral Tablet Sustained Release - take 1 tablet by ORAL route 2 times per day; 30 tablet; Refills: 0, Product ma2 Selection Permitted - Pepcid 20 mg Oral Tablet - take 1 tablet by ORAL route once daily; 20 tablet; Refills: 0, Product ma2 Selection Permitted Signatures: Dispatcher [employer] EDLinus Shepard MD MD ma2 Mel Stevens RN RN jg9 Trupti Garcia, RN RN ww
--- NOTE | 2021-11-16 09:35 | ER ---
Nurse's Notes [facility] Name: Milli Seymour Age: 36 yrs Sex: Female : 1985 Arrival Date: 11/16/2021 Time: 07:18 Bed 16 Private MD: Diagnosis: Upper abdominal pain, unspecified;Other cholelithiasis without obstruction Presentation: 11/16 07:21 Chief complaint: Patient states: I woke up this morning around 645 trying to get my jg9 kids ready for school and I was having shortness of breath and chest pain that radiated down into the abdominal region. Patient denies any recent illnesses or being around anyone that is sick. Coronavirus screen: Vaccine status: Patient reports being unvaccinated. Ebola Screen: Patient negative for fever greater than or equal to 101.5 degrees Fahrenheit, and additional compatible Ebola Virus Disease symptoms Patient denies exposure to infectious person. Patient denies travel to an Ebola-affected area in the 21 days before illness onset. Initial Sepsis Screen: Does the patient meet any 2 criteria? No. Patient's initial sepsis screen is negative. Does the patient have a suspected source of infection? No. Patient's initial sepsis screen is negative. Risk Assessment: Do you want to hurt yourself or someone else? Patient reports no desire to harm self or others. 07:21 Method Of Arrival: Wheelchair jg9 07:21 Acuity: YAEL 3 jg9 Triage Assessment: 07:24 General: Appears uncomfortable, Behavior is calm, cooperative. Pain: Complains of pain jg9 in back, chest and abdomen. Respiratory: Reports shortness of breath since 0645 am Breath sounds are clear bilaterally. HARDWOOD SAWYER: 07:24 LMP 10/28/2021 jg9 Historical: - Allergies: 07:23 No Known Allergies; jg9 - PMHx: 07:23 None; jg9 - Immunization history:: Adult Immunizations Client reports having NOT received the Covid vaccine. Pneumococcal vaccine is up to date, Flu vaccine is up to date. - Social history:: Smoking status: Patient denies any tobacco usage or history of. - Family history:: not pertinent. Screenin:24 Abuse screen: Denies threats or abuse. Denies injuries from another. Nutritional jg9 screening: No deficits noted. Tuberculosis screening: No symptoms or risk factors identified. Fall Risk None identified. Assessment: 07:25 Cardiovascular: Respiratory: Airway is patent. 9 07:35 General: Appears in no apparent distress. Behavior is cooperative. Pain: Complains of ww pain in back and chest. Neuro: Level of Consciousness is awake, alert, obeys commands, Oriented to person, place, time, situation, Moves all extremities. Speech is normal. Cardiovascular: Reports chest pain, Capillary refill < 3 seconds Patient's skin is warm and dry. Rhythm is regular Chest pain is located in anterior posterior substernal area. Respiratory: Airway is patent Respiratory effort is even, unlabored, Respiratory pattern is regular, symmetrical. GI: No signs and/or symptoms were reported involving the gastrointestinal system. Abdomen is non-distended, Abd is soft and non tender X 4 quads. : No signs and/or symptoms were reported regarding the genitourinary system. EENT: No signs and/or symptoms were reported regarding the EENT system. Derm: Skin is intact, is healthy with good turgor, Skin is pink, warm \T\ dry. 08:30 Reassessment: Patient appears in no apparent distress at this time. No changes from previously documented assessment. Patient and/or family updated on plan of care and expected duration. Pain level reassessed. Patient is alert, oriented x 3, equal unlabored respirations, skin warm/dry/pink. 10:38 Reassessment: Patient appears in no apparent distress at this time. No changes from previously documented assessment. Patient and/or family updated on plan of care and expected duration. Pain level reassessed. Patient is alert, oriented x 3, equal unlabored respirations, skin warm/dry/pink. Vital Signs: 07:21 BP 104 / 75; Pulse 73; Resp 20 S; Temp 98.1; Pulse Ox 100% on R/A; Weight 75.75 kg; jg9 Height 5 ft. 2 in. (157.48 cm); 07:35 BP 109 / 75; Pulse 78; Resp 18; Pulse Ox 100% on R/A; ww 10:38 BP 96 / 63; Pulse 64; Resp 22; Pulse Ox 100% on R/A; ww 07:21 Body Mass Index 30.54 (75.75 kg, 157.48 cm) 9 ED Course: 07:18 Patient arrived in ED. mr 07:19 Linus Prado MD is Attending Physician. ma2 07:23 Triage completed. jg9 07:24 Arm band placed on right wrist. jg9 07:25 Patient has correct armband on for positive identification. jg9 07:35 teletypesetter monitor on. Pulse ox on. NIBP on. ww 07:35 Initial lab(s) drawn, by md, sent to lab. Inserted saline lock: 20 gauge in left ww antecubital area, using aseptic technique. Blood collected. 07:45 Trupti Garcia, RN is Primary Nurse. ww 07:48 Magnesium Sent. ww 07:48 LFT's Sent. ww 07:48 Basic Metabolic Panel Sent. ww 08:10 XRAY Chest (1 view) In Process Unspecified. EDMS 08:41 US Abdomen Limited In Process Unspecified. EDMS 09:34 Evelio Madera MD is Referral Physician. ma2 10:38 No provider procedures requiring assistance completed. intact, bleeding controlled, No ww redness/swelling at site. Pressure dressing applied. Administered Medications: 08:45 Drug: Zofran (Ondansetron) 4 mg Route: IVP; Site: right antecubital; ww 09:03 Drug: morphine 4 mg Route: IVP; Site: right antecubital; ww 09:13 Drug: NS 0.9% 1000 ml Route: IV; Rate: 1 bolus; Site: left forearm; ww Outcome: 09:34 Discharge ordered by . ma2 10:38 Discharged to home ambulatory, with family. ww 10:38 Condition: stable 10:38 Discharge instructions given to patient, family, Instructed on discharge instructions, follow up and referral plans. medication usage, safety practices, Demonstrated understanding of instructions, follow-up care, medications, Prescriptions given X 3. 10:39 Patient left the ED. Signatures: Dispatcher [employer] ELIUDWV June Hamilton mr Linus Prado MD MD ks2 Mel Stevens RN RN jg9 Trupti Garcia, SETH ANN
[2021-11-16 10:44] VITALS: TEMP 98.1; O2SAT 100
[2021-11-16 10:46] VITALS: BP 96/63
== END 2021-11-16 10:39 | disposition home or self-care (01) ==
LOC: ER 07:15
DX: K80.80 Other cholelithiasis without obstruction (principal)
CPT/HCPCS: 36415; 71045; 76705; 80048; 80076; 83690; 83735; 83880; 84484; 85025; 85610; 93005; 96374; 96375; 99284; J2405; J7030

== ENCOUNTER 2023-02-11 12:44 | Emergency (ER) | payer SELFPAY ==
--- OUTSIDE RECORDS SUMMARY | 2023-02-11 12:53 | XMS REPORT | Continuity of Care Document ---
:1985 Author Organization [facility] t Address [address] [facility] [address] [place] [id number] Care Team Providers Name Role Phone PCP, PATIENT DOES NOT HAVE A Primary Care Physician Unavaila CATRACHO Siddiqui Attending Clinician Unavailable CATRACHO DUNBAR Attending Clinician Unavailable Pcp, Patient Does Not Have A Attending Clinician [phone] Doctor Unassigned, [facility] Attending Clinician Unavailable TRUPTI SKINNER Attending Clinician Unavailable Trupti Skinner MD Attending Clinician Loren Hwang MD Attending Clinician TRUPTI SKINNER Admitting Clinician Unavailable Payers Payer Name Policy Type Policy Number Effective Date Expiration Date S ource Problems Condition Condition Condition Status Onset Resolution Last Treating Co mments Source Name Details Category Date Date Treatment Clinician Date Encounter Encounter Disease Active Uni vers for for 10-11 ity of initial initial 00:00: [place] prescripti prescripti 00 Me dical on of on of Branch injectable injectable contracept contracept alirio alirio Allergies, Adverse Reactions, Alerts Allergy Allergy Status Severity Reaction(s) Onset Inactive Treating Comm ents Source Name Type Date Date Clinician NO KNOWN Drug Active Univers ALLERGIE Class ity of S [facility] Social History Social Habit Start Date Stop Date Quantity Comments Source Exposure to Not sure [facility] SARS-CoV-2 (event) Medica l Branch Alcohol intake 2021-11-18 2021-11-18 0 /d [facility] 00:00:00 00:00:00 Medical Branch Tobacco use and 2015-06-21 2015-06-21 Never used [facility] exposure 00:00:00 00:00:00 Medical Branch Sex Ass[birth year] At [birth year] [facility] 00:00:00 00:00:00 Medical Branch Smoking Status Start Date Stop Date Source Never smoker [facility] Medical Branch Medications Ordered Filled Start Stop Current Ordering Indication Dosage Frequency Signature Comments Components Source Medication Medication Date Date Medication? Clinician (SIG) Name Name medroxyprog 2022-0 No 1mg/mL esterone 5-19 150 mg/mL 00:00: intramuscul 00 ar suspension Dose 2-0 No Unknown 5-19 00:00: 00 Dose 2-0 No Unknown 5-19 00:00: 00 Dose 2022-0 No Unknown 5-19 00:00: 00 Dose 2022-0 No Unknown 5-19 00:00: 00 Dose 2022-0 No Unknown 5-19 00:00: 00 Dose 2022-0 No Unknown 5-19 00:00: 00 Dose 2022-0 No Unknown 5-19 00:00: 00 Dose 2022-0 No Unknown 5-19 00:00: 00 Dose 2022-0 No Unknown 5-19 00:00: 00 Dose 2022-0 No Unknown 5-19 00:00: 00 Dose 2022-0 No Unknown 5-19 00:00: 00 Dose 2022-0 No Unknown 5-19 00:00: 00 Dose 2022-0 No Unknown 5-19 00:00: 00 Dose 2022-0 No Unknown 5-19 00:00: 00 Dose 2022-0 No Unknown 5-19 00:00: 00 Dose 2022-0 No Unknown 5-19 00:00: 00 Dose 2022-0 No Unknown 5-19 00:00: 00 Dose 2022-0 No Unknown 5-19 00:00: 00 Dose 2022-0 No Unknown 5-19 00:00: 00 medroxyprog 2022-0 No 1mg/mL esterone 5-19 150 mg/mL 00:00: intramuscul 00 ar suspension Dose 2-0 No Unknown 5-19 00:00: 00 Dose 2022-0 No Unknown 5-19 00:00: 00 Dose 2022-0 No Unknown 5-19 00:00: 00 Dose 2022-0 No Unknown 5-19 00:00: 00 Dose 2022-0 No Unknown 5-19 00:00: 00 Dose 2022-0 No Unknown 5-19 00:00: 00 Dose 2022-0 No Unknown 5-19 00:00: 00 Dose 2022-0 No Unknown 5-19 00:00: 00 Dose 2022-0 No Unknown 5-19 00:00: 00 Dose 2022-0 No Unknown 5-19 00:00: 00 Dose 2022-0 No Unknown 5-19 00:00: 00 Dose 2022-0 No Unknown 5-19 00:00: 00 Dose 2022-0 No Unknown 5-19 00:00: 00 Dose 2022-0 No Unknown 5-19 00:00: 00 Dose 2022-0 No Unknown 5-19 00:00: 00 Dose 2022-0 No Unknown 5-19 00:00: 00 Dose 2022-0 No Unknown 5-19 00:00: 00 Dose 2022-0 No Unknown 5-19 00:00: 00 Dose 2022-0 No Unknown 5-19 00:00: 00 Dose 2022-0 No Unknown 5-04 00:00: 00 Dose 2022-0 No Unknown 5-04 00:00: 00 Dose 2022-0 No Unknown 5-04 00:00: 00 Dose 2022-0 No Unknown 5-04 00:00: 00 Dose 2022-0 No Unknown 5-04 00:00: 00 Dose 2022-0 No Unknown 5-04 00:00: 00 Dose 2022-0 No Unknown 5-04 00:00: 00 Dose 2022-0 No Unknown 5-04 00:00: 00 Dose 2022-0 No Unknown 5-04 00:00: 00 Dose 2022-0 No Unknown 5-04 00:00: 00 Dose 2022-0 No Unknown 5-04 00:00: 00 Dose 2022-0 No Unknown 5-04 00:00: 00 Dose 2022-0 No Unknown 5-04 00:00: 00 Dose 2022-0 No Unknown 5-04 00:00: 00 Dose 2022-0 No Unknown 5-04 00:00: 00 Dose 2022-0 No Unknown 5-04 00:00: 00 Dose 2022-0 No Unknown 5-04 00:00: 00 Dose 2022-0 No Unknown 5-04 00:00: 00 Dose 2022-0 No Unknown 5-04 00:00: 00 Dose 2022-0 No Unknown 5-04 00:00: 00 Dose 2022-0 No Unknown 5-04 00:00: 00 Dose 2022-0 No Unknown 5-04 00:00: 00 Dose 2022-0 No Unknown 5-04 00:00: 00 Dose 2022-0 No Unknown 5-04 00:00: 00 Dose 2022-0 No Unknown 5-04 00:00: 00 Dose 2022-0 No Unknown 5-04 00:00: 00 Dose 2022-0 No Unknown 5-04 00:00: 00 Dose 2022-0 No Unknown 5-04 00:00: 00 Dose 2022-0 No Unknown 5-04 00:00: 00 Dose 2022-0 No Unknown 5-04 00:00: 00 Dose 2022-0 No Unknown 5-04 00:00: 00 Dose 2022-0 No Unknown 5-04 00:00: 00 Dose 2022-0 No Unknown 5-04 00:00: 00 Dose 2022-0 No Unknown 5-04 00:00: 00 Dose 2022-0 No Unknown 5-04 00:00: 00 Dose 2022-0 No Unknown 5-04 00:00: 00 Dose 2022-0 No Unknown 5-04 00:00: 00 Dose 2022-0 No Unknown 5-04 00:00: 00 Dose 2022-0 No Unknown 5-04 00:00: 00 Dose 2022-0 No Unknown 5-04 00:00: 00 Dose 2022-0 No Unknown 5-04 00:00: 00 Dose 2022-0 No Unknown 5-04 00:00: 00 Dose 2022-0 No Unknown 5-04 00:00: 00 Dose 2022-0 No Unknown 5-04 00:00: 00 Dose 2022-0 No Unknown 5-04 00:00: 00 Dose 2022-0 No Unknown 5-04 00:00: 00 Dose 2022-0 No Unknown 5-04 00:00: 00 Dose 2022-0 No Unknown 5-04 00:00: 00 Dose 2022-0 No Unknown 5-04 00:00: 00 Dose 2022-0 No Unknown 5-04 00:00: 00 Dose 2022-0 No Unknown 5-04 00:00: 00 Dose 2022-0 No Unknown 5-04 00:00: 00 Dose 2022-0 No Unknown 5-04 00:00: 00 Dose 2022-0 No Unknown 5-04 00:00: 00 Dose 2022-0 No Unknown 5-04 00:00: 00 Dose 2022-0 No Unknown 5-04 00:00: 00 Dose 2022-0 No Unknown 5-04 00:00: 00 Dose 2022-0 No Unknown 5-04 00:00: 00 Dose 2022-0 No Unknown 5-04 00:00: 00 Dose 2022-0 No Unknown 5-04 00:00: 00 Dose 2022-0 No Unknown 5-04 00:00: 00 Dose 2022-0 No Unknown 5-04 00:00: 00 Dose 2022-0 No Unknown 5-04 00:00: 00 Dose 2022-0 No Unknown 5-04 00:00: 00 Dose 2022-0 No Unknown 4-28 00:00: 00 Dose 2022-0 No Unknown 4-28 00:00: 00 Dose 2022-0 No Unknown 4-28 00:00: 00 Dose 2022-0 No Unknown 4-28 00:00: 00 Dose 2022-0 No Unknown 4-28 00:00: 00 Dose 2022-0 No Unknown 4-28 00:00: 00 Dose 2022-0 No Unknown 4-28 00:00: 00 Dose 2022-0 No Unknown 4-28 00:00: 00 Dose 2022-0 No Unknown 4-28 00:00: 00 Dose 2022-0 No Unknown 4-28 00:00: 00 Dose 2022-0 No Unknown 4-28 00:00: 00 Dose 2022-0 No Unknown 4-28 00:00: 00 Dose 2022-0 No Unknown 4-28 00:00: 00 Dose 2022-0 No Unknown 4-28 00:00: 00 Dose 2022-0 No Unknown 4-28 00:00: 00 Dose 2022-0 No Unknown 4-28 00:00: 00 Dose 2022-0 No Unknown 3-12 00:00: 00 Dose 2022-0 No Unknown 3-12 00:00: 00 Dose 2022-0 No Unknown 3-12 00:00: 00 Dose 2-0 No Unknown 3-12 00:00: 00 Dose 2-0 No Unknown 3-12 00:00: 00 Dose 2-0 No Unknown 3-12 00:00: 00 Dose 2-0 No Unknown 3-12 00:00: 00 Dose 2-0 No Unknown 3-12 00:00: 00 Dose 2-0 No Unknown 3-12 00:00: 00 Dose 2-0 No Unknown 3-12 00:00: 00 Dose 2-0 No Unknown 3-12 00:00: 00 Dose 2-0 No Unknown 3-12 00:00: 00 Dose 2-0 No Unknown 3-12 00:00: 00 Dose 2021-0 No Unknown 3-12 00:00: 00 Dose 2021-0 No Unknown 3-12 00:00: 00 Dose 2-0 No Unknown 3-12 00:00: 00 Dose 2-0 No Unknown 3-11 00:00: 00 Dose 2021-0 No Unknown 3-11 00:00: 00 Dose 2-0 No Unknown 3-11 00:00: 00 Dose 2-0 No Unknown 3-11 00:00: 00 Dose 2-0 No Unknown 3-11 00:00: 00 Dose 2021-0 No Unknown 3-11 00:00: 00 Dose 2-0 No Unknown 3-11 00:00: 00 Dose 2-0 No Unknown 3-11 00:00: 00 ondansetron 2021- No 4mg 4 mg, Slow Univers (ZOFRAN 11-19- IV Push, ity of (PF)) 07:00: 06:18 ONCE, 1 [place] injection 4 00 :00 dose, On Medi saeid mg 11/19/21 Branch at 0100, JEREMY morpHINE 2021- No 4mg 4 mg, Slow Un roger injection 4 11-19- IV Push, ity of mg 07:00: 06:19 ONCE, 1 [place] 00 :00 dose, On Medical 11/19/21 Branch at 0100, STAT iohexol 2021- No [id number] 120mL 120 mL, Univers (OMNIPAQUE 11-19-05 Intravenou it y of 350 06:55: 06:55 s, ONCE, 1 [place] BULK-150 00 :00 dose, On Medical mL) 11/19/21 Branch injection at 0100, 120 mL Routine sucralfate 2021-0 Yes [id number] 1g Take 1 Univers 1 gram 3-05 tablet by ity of tablet 00:00: mouth [place] 00 before Medical meals and Branch at bedtime. omeprazole 2021-0 Yes [id number] 20mg Take 1 Univers 20 mg 3-05 capsule by ity of capsule 00:00: mouth [place] 00 daily. Medical Branch traMADoL 2021-0 Yes [id number] 50mg Take 1 Univers (ULTRAM) 50 3-05 tablet by ity of mg tablet 00:00: mouth [place] 00 every 6 Medical (six) Branch hours as needed for Pain (scale 7-10). Indication s: acute pain sucralfate 2021-0 Yes [id number] 1g Take 1 Univers 1 gram 3-05 tablet by ity of tablet 00:00: mouth [place] 00 before Medical meals and Branch at bedtime. omeprazole 2021-0 Yes [id number] 20mg Take 1 Univers 20 mg 3-05 capsule by ity of capsule 00:00: mouth [place] 00 daily. Medical Branch traMADoL 2021-0 Yes [id number] 50mg Take 1 Univers (ULTRAM) 50 3-05 tablet by ity of mg tablet 00:00: mouth [place] 00 every 6 Medical (six) Branch hours as needed for Pain (scale 7-10). Indication s: acute pain sucralfate 2021-0 Yes [id number] 1g Take 1 Univers 1 gram 3-05 tablet by ity of tablet 00:00: mouth [place] 00 before Medical meals and Branch at bedtime. omeprazole 2021-0 Yes [id number] 20mg Take 1 Univers 20 mg 3-05 capsule by ity of capsule 00:00: mouth [place] 00 daily. Medical Branch traMADoL 2021-0 Yes [id number] 50mg Take 1 Univers (ULTRAM) 50 3-05 tablet by ity of mg tablet 00:00: mouth [place] 00 every 6 Medical (six) Branch hours as needed for Pain (scale 7-10). Indication s: acute pain medroxyprog 2020-0 No 1mg/mL esterone 5-07 150 mg/mL 00:00: intramuscul 00 ar suspension Dose 2020-0 No Unknown 5-07 00:00: 00 Dose 2020-0 No Unknown 5-07 00:00: 00 medroxyprog 2020-0 No 1mg/mL esterone 5-07 150 mg/mL 00:00: intramuscul 00 ar suspension medroxyprog 2020-0 No 1mg/mL esterone 4-30 150 mg/mL 00:00: intramuscul 00 ar syringe Dose 2020-0 No Unknown 4-30 00:00: 00 Dose 2020-0 No Unknown 4-30 00:00: 00 medroxyprog 2020-0 No 1mg/mL esterone 4-30 150 mg/mL 00:00: intramuscul 00 ar syringe ketorolac 2019- 2020- No 30mg 30 mg, Unive rs (TORADOL) 10-28 Slow IV ity of injection 10:45: 09:34 Push, [place] 30 mg 00 :00 ONCE, 1 Medical dose, Tue Branch 10/28/19 at 0445, JEREMY
Fa culty member approving Restricted medication : LOREN HWANG traMADol 2019-0 Yes [id number] 50mg Take 1 Un roger (ULTRAM) 50 2-11 tablet by ity of mg tablet 00:00: mouth every 6 Medical (six) Branch hours as needed for Pain (scale 7-10). naproxen 2020-0 Yes [id number] 550mg Take 1 U nivers sodium 550 2-11 tablet by ity of mg tablet 00:00: mouth (two) Medical times Branch daily with meals. traMADol 2020-0 Yes [id number] 50mg Take 1 Un orger (ULTRAM) 50 2-11 tablet by ity of mg tablet 00:00: mouth 00 every 6 Medical (six) Branch hours as needed for Pain (scale 7-10). naproxen 2020-0 Yes [id number] 550mg Take 1 U nivers sodium 550 2-11 tablet by ity of mg tablet 00:00: mouth (two) Medical times Branch daily with meals. naproxen 2020-0 Yes [id number] 550mg Take 1 U nivers sodium 550 2-11 tablet by ity of mg tablet 00:00: mouth (two) Medical times Branch daily with meals. naproxen 2020-0 Yes [id number] 550mg Take 1 U nivers sodium 550 2-11 tablet by ity of mg tablet 00:00: mouth 2 (two) Medical times Branch daily with meals. naproxen Yes [id number] 550mg Take 1 U nivers sodium 550 2-11 tablet by ity of mg tablet 00:00: mouth 2 (two) Medical times Branch daily with meals. traMADol 2021- No [id number] 50mg Take 1 U nivers (ULTRAM) 50 2-11 03-05 tablet by it y of mg tablet 00:00: 00:00 mouth [place] 00 :00 every 6 Medical (six) Branch hours as needed for Pain (scale 7-10). Cipro 500 0 No 1mg mg tablet - 00:00: 00 Cipro 500 0 No 1mg mg tablet 01-06 00:00: 00 Cipro 500 2016-0 No 1mg mg tablet 01-06 00:00: 00 Cipro 500 0 No 1mg mg tablet 01-06 00:00: 00 medroxyPROG 2014-09 Yes [id number] 150mg Univers ESTERone 0-05 ity of (DEPO-PROVE 20:45: [place] RA) 00 Medical injection Branch 150 mg medroxyPROG 2014-09 Yes [id number] 150mg Univers ESTERone 0-05 ity of (DEPO-PROVE 20:45: [place] RA) 00 Medical injection Branch 150 mg medroxyPROG 2014-09 Yes [id number] 150mg Univers ESTERone 0-05 ity of (DEPO-PROVE 20:45: [place] RA) 00 Medical injection Branch 150 mg medroxyPROG 2014-09 Yes [id number] 150mg Univers ESTERone 0-05 ity of (DEPO-PROVE 20:45: [place] RA) 00 Medical injection Branch 150 mg medroxyPROG 2014-09 Yes [id number] 150mg Univers ESTERone 0-05 ity of (DEPO-PROVE 20:45: [place] RA) 00 Medical injection Branch 150 mg Immunizations Ordered Filled Immunization Date Status Comments [facility] Immunization Name Name HPV9 2022-03-16 Completed 00:00:00 HPV9 2022-03-16 Completed 00:00:00 HPV9 2022-03-16 Completed 00:00:00 HPV9 2022-03-16 Completed 00:00:00 HPV9 2022-02-02 Completed 00:00:00 HPV9 2022-02-02 Completed 00:00:00 HPV9 2022-02-02 Completed 00:00:00 HPV9 2022-02-02 Completed 00:00:00 TDAP 2015-06-21 Completed University of 00:00:00 [place] [facility] Tdap 2015-06-21 Completed University of 00:00:00 [place] [facility] TDAP 2015-06-21 Completed University of 00:00:00 [place] [facility] TDAP 2015-06-21 Completed University of 00:00:00 [place] [facility] TDAP 2015-06-21 Completed University of 00:00:00 [facility] Vital Signs Vital Name Observation Time Observation Value Comments Source Systolic blood 2021-11-19 07:38:00 114 mm[Hg] Univer sity of pressure [facility] Diastolic blood 2021-11-19 07:38:00 66 mm[Hg] Unive rsity of [facility] Heart rate 2021-11-19 07:38:00 77 /min [facility] Body temperature 2021-11-19 07:38:00 [facility].67 [facility] Respiratory rate 2021-11-19 07:38:00 18 /min [facility] Oxygen saturation in 2021-11-19 07:38:00 97 /min University of Arterial blood by [place] [employer] Pulse oximetry Branch Body weight 2021-11-19 05:17:00 74.844 kg [facility] BMI 2021-11-19 05:17:00 30.18 kg/m2 [facility] Systolic blood 2019-10-28 09:00:00 113 mm[Hg] Univer sity of pressure [facility] Diastolic blood 2019-10-28 09:00:00 81 mm[Hg] Unive rsity of pressure [facility] Heart rate 2019-10-28 09:00:00 77 /min [facility] Respiratory rate 2019-10-28 09:00:00 18 /min [facility] Oxygen saturation in 2019-10-28 09:00:00 97 /min University of Arterial blood by [employer] Pulse oximetry Branch Body height 2019-10-28 08:57:00 157.5 cm [facility] Body weight 2019-10-28 08:57:00 58.514 kg [facility] BMI 2019-10-28 08:57:00 23.59 kg/m2 [facility] BP Systolic 2022-08-15 15:47:00 106 mm[Hg] BP Diastolic 2022-08-15 15:47:00 75 mm[Hg] Weight Measured 2022-08-15 15:47:00 162.60 pounds Height Measured 2022-08-15 15:47:00 51.00 inches Body Temperature 2022-08-15 15:47:00 97.60 degrees Heart Rate 2022-08-15 15:47:00 88.00 /min Respiratory Rate 2022-08-15 15:47:00 BP Systolic 2022-07-24 17:09:00 104 mm[Hg] BP Diastolic 2022-07-24 17:09:00 78 mm[Hg] Weight Measured 2022-07-24 17:09:00 154.00 pounds Height Measured 2022-07-24 17:09:00 51.00 inches Body Temperature 2022-07-24 17:09:00 97.70 degrees Heart Rate 2022-07-24 17:09:00 74.00 /min Respiratory Rate 2022-07-24 17:09:00 BP Systolic 2022-05-04 16:54:00 95 mm[Hg] BP Diastolic 2022-05-04 16:54:00 61 mm[Hg] Weight Measured 2022-05-04 16:54:00 148.40 pounds Height Measured 2022-05-04 16:54:00 51.00 inches Body Temperature 2022-05-04 16:54:00 97.50 degrees Heart Rate 2022-05-04 16:54:00 72.00 /min Respiratory Rate 2022-05-04 16:54:00 BP Systolic 2022-03-16 14:03:00 111 mm[Hg] BP Diastolic 2022-03-16 14:03:00 73 mm[Hg] Weight Measured 2022-03-16 14:03:00 147.40 pounds Height Measured 2022-03-16 14:03:00 51.00 inches Body Temperature 2022-03-16 14:03:00 98.30 degrees Heart Rate 2022-03-16 14:03:00 76.00 /min Respiratory Rate 2022-03-16 14:03:00 18.00 /min BP Systolic 2022-02-02 15:20:00 113 mm[Hg] BP Diastolic 2022-02-02 15:20:00 78 mm[Hg] Weight Measured 2022-02-02 15:20:00 148.00 pounds Height Measured 2022-02-02 15:20:00 51.00 inches Body Temperature 2022-02-02 15:20:00 98.20 degrees Heart Rate 2022-02-02 15:20:00 80.00 /min Respiratory Rate 2022-02-02 15:20:00 18.00 /min BP Systolic 2021-11-08 15:25:00 106 mm[Hg] BP Diastolic 2021-11-08 15:25:00 71 mm[Hg] Weight Measured 2021-11-08 15:25:00 999.99 pounds Height Measured 2021-11-08 15:25:00 51.00 inches Body Temperature 2021-11-08 15:25:00 98.80 degrees Heart Rate 2021-11-08 15:25:00 84.00 /min Respiratory Rate 2021-11-08 15:25:00 17.00 /min BP Systolic 2021-08-17 09:25:00 93 mm[Hg] BP Diastolic 2021-08-17 09:25:00 54 mm[Hg] Weight Measured 2021-08-17 09:25:00 158.40 pounds Height Measured 2021-08-17 09:25:00 51.00 inches Body Temperature 2021-08-17 09:25:00 98.10 degrees Heart Rate 2021-08-17 09:25:00 73.00 /min Respiratory Rate 2021-08-17 09:25:00 BP Systolic 2020-10-22 15:42:00 110 mm[Hg] BP Diastolic 2020-10-22 15:42:00 74 mm[Hg] Weight Measured 2020-10-22 15:42:00 153.40 pounds Height Measured 2020-10-22 15:42:00 51.00 inches Body Temperature 2020-10-22 15:42:00 Heart Rate 2020-10-22 15:42:00 98.00 /min Respiratory Rate 2020-10-22 15:42:00 16.00 /min Height Measured 2020-10-22 15:33:00 62.00 inches Body Temperature 2020-10-22 15:33:00 Heart Rate 2020-10-22 15:33:00 98.00 /min Respiratory Rate 2020-10-22 15:33:00 16.00 /min BP Systolic 2020-10-22 15:33:00 110 mm[Hg] BP Diastolic 2020-10-22 15:33:00 74 mm[Hg] Weight Measured 2020-10-22 15:33:00 153.40 pounds BP Systolic 2020-07-28 15:31:00 108 mm[Hg] BP Diastolic 2020-07-28 15:31:00 70 mm[Hg] Weight Measured 2020-07-28 15:31:00 147.80 pounds Height Measured 2020-07-28 15:31:00 62.00 inches Body Temperature 2020-07-28 15:31:00 98.90 degrees Heart Rate 2020-07-28 15:31:00 90.00 /min Respiratory Rate 2020-07-28 15:31:00 16.00 /min BP Systolic 2019-11-14 13:48:00 97 mm[Hg] BP Diastolic 2019-11-14 13:48:00 59 mm[Hg] Weight Measured 2019-11-14 13:48:00 125.40 pounds Height Measured 2019-11-14 13:48:00 62.00 inches Body Temperature 2019-11-14 13:48:00 98.20 degrees Heart Rate 2019-11-14 13:48:00 76.00 /min Respiratory Rate 2019-11-14 13:48:00 16.00 /min BP Systolic 2019-11-05 13:37:00 100 mm[Hg] BP Diastolic 2019-11-05 13:37:00 61 mm[Hg] Weight Measured 2019-11-05 13:37:00 124.80 pounds Height Measured 2019-11-05 13:37:00 62.00 inches Body Temperature 2019-11-05 13:37:00 98.10 degrees Heart Rate 2019-11-05 13:37:00 84.00 /min Respiratory Rate 2019-11-05 13:37:00 16.00 /min BP Systolic 2017-01-06 13:27:00 101 mm[Hg] BP Diastolic 2017-01-06 13:27:00 72 mm[Hg] Weight Measured 2017-01-06 13:27:00 198.80 pounds Height Measured 2017-01-06 13:27:00 62.00 inches Body Temperature 2017-01-06 13:27:00 98.40 degrees Heart Rate 2017-01-06 13:27:00 74.00 /min Respiratory Rate 2017-01-06 13:27:00 16.00 /min Procedures Procedure Date / Time Performing Clinician Source Performed CT ABDOMEN PELVIS W 2021-11-19 06:59:11 Trupti Skinner [facility] CONTRAST [facility] POCT TEST 2021-11-19 06:20:[address] [facility] US GALL BLADDER 2021-11-19 06:10:44 Trupti Skinner [facility] COVID-19 (ID NOW RAPID 2021-11-19 05:47:00 Trupti Skinner [facility] TESTING) Medical Branch LIPASE 2021-11-19 05:46:00 Trupti Skinner [facility] COMP. METABOLIC PANEL 2021-11-19 05:46:00 Trupti Skinner [facility] ([id number]) [facility] CBC WITH DIFF 2021-11-19 05:46:00 Trupti Skinner [facility] URINALYSIS 2021-11-19 05:46:00 Trupti Skinner [facility] CONSENT/REFUSAL FOR 2021-11-19 05:18:04 Doctor Unassigned, No Un [facility] DIAGNOSIS AND TREATMENT Name Medical Branch DISCLOSURE AND CONSENT, 2021-10-18 06:01:00 Doctor Unassigned, N o [facility] MEDICAL AND SURGICAL Name Medical [facility] PROCEDURES LIPASE 2019-10-28 09:01:00 Loren Hwang [facility] COMP. METABOLIC PANEL 2019-10-28 09:01:00 Loren Hwang [facility] ([id number]) Medical [place] CBC WITH DIFFERENTIAL 2019-10-28 09:01:00 [facility] URINALYSIS 2019-10-28 09:01:00 Loren Hwang [facility] POCT TEST 2019-10-28 09:00:[address] [facility] NOTICE OF PRIVACY 2019-10-28 08:46:30 [facility] CONSENT/REFUSAL FOR 2019-10-28 08:46:14 [facility] Name [facility] Plan of Care Planned Activity Planned Date Details Comments Source Goal Plan of Care Note [code = 21467-9] Goal Plan of Care Note [code = 43081-3] Goal Plan of Care Note [code = 47530-1] Goal Plan of Care Note [code = 57740-9] Goal Plan of Care Note [code = 25106-4] Goal Plan of Care Note [code = 84987-8] Goal Plan of Care Note [code = 59992-2] Goal Plan of Care Note [code = 91566-3] Goal Plan of Care Note [code = 31157-3] Goal Plan of Care Note [code = 16686-0] Goal Plan of Care Note [code = 43882-0] Goal Plan of Care Note [code = 08209-6] Goal Plan of Care Note [code = 78177-5] Goal Plan of Care Note [code = 10461-0] Goal Plan of Care Note [code = 74220-6] Goal Plan of Care Note [code = 54621-2] Goal Plan of Care Note [code = 70329-2] Goal Plan of Care Note [code = 81885-0] Goal Plan of Care Note [code = 14584-0] Goal Plan of Care Note [code = 07146-6] Goal Plan of Care Note [code = 66940-3] Goal Plan of Care Note [code = 07559-0] Goal Plan of Care Note [code = 44219-1] Goal Plan of Care Note [code = 65455-6] Goal Plan of Care Note [code = 03838-8] Goal Plan of Care Note [code = 36540-3] Goal Plan of Care Note [code = 09792-6] Goal Plan of Care Note [code = 77723-4] Goal Plan of Care Note [code = 53320-6] Goal Plan of Care Note [code = 49629-0] Goal Plan of Care Note [code = 56257-3] Goal Plan of Care Note [code = 32124-5] Goal Plan of Care Note [code = 54142-4] Goal Plan of Care Note [code = 92011-6] Goal Plan of Care Note [code = 51278-5] Goal Plan of Care Note [code = 87265-5] Goal Plan of Care Note [code = 10527-2] Goal Plan of Care Note [code = 72154-9] Goal Plan of Care Note [code = 13117-3] Goal Plan of Care Note [code = 00270-1] Goal Plan of Care Note [code = 30028-3] Goal Plan of Care Note [code = 82795-0] Goal Plan of Care Note [code = 62613-0] Goal Plan of Care Note [code = 59456-0] Goal Plan of Care Note [code = 57025-6] Goal Plan of Care Note [code = 30269-2] Goal Plan of Care Note [code = 36230-1] Goal Plan of Care Note [code = 50576-5] Goal Plan of Care Note [code = 61265-8] Goal Plan of Care Note [code = 82929-4] Goal Plan of Care Note [code = 17646-2] Goal Plan of Care Note [code = 62878-2] Goal Plan of Care Note [code = 91090-6] Goal Plan of Care Note [code = 28044-0] Goal Plan of Care Note [code = 88249-6] Goal Plan of Care Note [code = 74745-6] Goal Plan of Care Note [code = 46270-8] Goal Plan of Care Note [code = 52184-6] Goal Plan of Care Note [code = 07086-7] Goal Plan of Care Note [code = 54016-7] Goal Plan of Care Note [code = 91269-9] Goal Plan of Care Note [code = 83796-4] Goal Plan of Care Note [code = 42778-8] Goal Plan of Care Note [code = 99447-8] Goal Plan of Care Note [code = 62389-4] Goal Plan of Care Note [code = 22813-9] Goal Plan of Care Note [code = 39213-7] Goal Plan of Care Note [code = 72020-8] Goal Plan of Care Note [code = 00782-5] Goal Plan of Care Note [code = 69697-3] Goal Plan of Care Note [code = 78984-9] Goal Plan of Care Note [code = 81408-3] Goal Plan of Care Note [code = 76790-8] Goal Plan of Care Note [code = 81351-9] Goal Plan of Care Note [code = 33599-6] Goal Plan of Care Note [code = 90529-7] Goal Plan of Care Note [code = 76060-3] Goal Plan of Care Note [code = 04730-1] Goal Plan of Care Note [code = 03467-3] Goal Plan of Care Note [code = 85168-1] Goal Plan of Care Note [code = 59000-1] Goal Plan of Care Note [code = 76348-2] Goal Plan of Care Note [code = 50228-9] Goal Plan of Care Note [code = 95783-0] Goal Plan of Care Note [code = 25785-7] Goal Plan of Care Note [code = 59062-5] Goal Plan of Care Note [code = 22075-1] Goal Plan of Care Note [code = 96288-9] Goal Plan of Care Note [code = 96223-3] Goal Plan of Care Note [code = 79173-5] Goal Plan of Care Note [code = 90315-6] Goal Plan of Care Note [code = 86084-0] Encounters Start End Encounter Admission Attending Care Care Encounter Source Date/Time Date/Time Type Type Clinicians Facility Department ID 2022-10-20 2022-10-20 Outpatient SFA SFA [id number] 023 [place] 15:25:32 15:25:32 0203 F Rosales 2022-08-18 2022-08-18 Outpatient SFA SFA [id number] 022 [place] 15:22:36 15:22:36 1202 F Rosales 2022-08-15 2022-08-15 Outpatient SFA SFA [id number] 022 [place] 15:36:23 15:36:23 1129 F Harman 2022-08-15 2022-08-15 Outpatient [id number]- [id number] [id number]-[id number] 00:00:00 00:00:00 Visit x902-60ox 634-41ba-a -t59g-7k8 84f-1c8c35 u530ud2nf 0fe4ab 2022-07-24 2022-07-24 Outpatient SFA SFA 66110-1 022 [place] 17:07:55 17:07:55 1107 F Rosales 2022-07-24 2022-07-24 Outpatient [id number] 00:00:00 00:00:00 Visit 1n82-5671 c10-2278-g -x949-474 013-241ee7 rp917yuu2 22faa3 2022-05-04 2022-05-04 Outpatient 86c2s63i- [id number] q4w55c-z 00:00:00 00:00:00 Visit k5h4-534t 2m2-674k-8 -3m7n-2h9 h7f-8s76q1 0k56ky396 3gr116 2022-03-16 2022-03-16 Outpatient [id number]- [id number] 06q9xq-e 00:00:00 00:00:00 Visit dff7-428f ff7-428f-b -a08g-57q 90b-04a86b 93hsm9z5s de7a5e 2021-11-25 2021-11-25 Outpatient R CATRACHO DUNBAR [facility] [id number] Univers 13:00:00 13:00:00 CATRACHO DUNBAR ity of [facility] 2021-11-23 2021-11-23 Letter Pcp, [facility] [id number] Univers 00:00:00 00:00:00 (Out) Patient [place] 350.1.13.10 i ty of Does Not [place] 4.2.7.2.686 Corn[place] as Have A PROFESSIO [phone] Ut dical [address] 2021-11-23 2021-11-23 Patient Doctor [facility] [id number] Univers 00:00:00 00:00:00 Secure Msg Unassigned, [place] 350.1.13.10 ity of [place] [phone] Ut dical N[place] [address] 2021-11-18 2021-11-19 Emergency X ELIZABETH, [facility] ERT [id number] Univers 23:18:00 02:01:00 TRUPTI ity of [facility] 2021-11-18 2021-11-19 Emergency Skinner, TRAUMA [id number] Univers 23:18:00 02:01:00 Trupti CENTER 350.1.13.10 [place] [phone] [facility] [address] 2021-10-18 2021-10-18 Orders Doctor HUMBERTO [id number] [id number] Univers 00:00:00 00:00:00 Only Unassigned, CHERIE 350.1.13.10 ity of [place] [facility] 4.2.7.2.686 [place] as [phone] [facility] [address] [place] 2020-04-23 2020-04-23 Outpatient R [facility] [id number] Univers 16:20:00 16:20:00 ity [facility] 2019-10-28 2019-10-28 Emergency [facility] [id number] Univers 02:51:21 03:48:00 Loren Dickinson 350.1.13.10 ity [place] [phone] [address] Results Test Description Test Time Test Comments Results Result Comments Source POCT TEST 2021-11-19 06:20:00 Test Item Value Reference Range Interpretation Comme nts POCT PREG (test code = 1605) Negative On board controls acceptable with C Line (test code = 3574) Yes POCT PREG LOT # (test code = 3575) [id number] POCT PREG TEST DATE (test code = 3576) 11/14/22 Lab Interpretation (test code = 70811-4) [facility]09 Test Item Value Reference Range Interpretation Comments LIPASE (test code = 2661832188) 129 U/L 0-220 Lab Interpretation (test code = Normal 20671-6) [facility]2021-11-19 06:09:08 Test Item Value Reference Range Interpretation Comments NA (test code = 138 mmol/L 135-145 7924869220) K (test code = 4.1 mmol/L 3.5-5.0 1484677798) CL (test code = 107 mmol/L 98-108 8109258410) CO2 TOTAL (test code 24 mmol/L 23-31 = 4789181397) AGAP (test code = 2-16 1999997941) BUN (test code = 10 mg/dL 7-23 2336363555) GLUCOSE (test code = 93 mg/dL 70-110 4726412858) CREATININE (test code 0.69 mg/dL 0.50-1.04 = 8522033213) TOTAL BILI (test code 0.6 mg/dL 0.1-1.1 = 7381808813) CALCIUM (test code = 8.9 mg/dL 8.6-10.6 3886203247) T PROTEIN (test code 7.8 g/dL 6.3-8.2 = 7054594777) ALBUMIN (test code = 4.6 g/dL 3.5-5.0 5676684664) ALK PHOS (test code = 100 U/L 34-122 9407833806) ALTv (test code = 27 U/L 5-35 1742-6) AST(SGOT) (test code 23 U/L 13-40 = 9828508761) eGFR (test code = mL/min/1.73m2 6053574290) MATEO (test code = MATEO) Association of Glomerular Filtration Rate (GFR) and Staging of Kidney Disease* + + +- +| GFR (mL/min/1.73 m2) ?| With Kidney Damage ?| ?Without Kidney Damage+ ------+ ----+ ------+| ?>90 ?| ?Stage one ?| ? Normal ?+ -+ + -+| ?60-89 ?| ?Stage two ?| ? Decreased GFR ? + + +- +| ?30-59 ?| ?Stage three ?| ? Stage three ? + + +- +| ?15-29 ?| ?Stage four ? | ? Stage four ?+ -+ + -+| ?<15 (or dialysis) ? ?| ?Stage five ? | ? Stage five ?+ -+ + -+ *Each stage assumes the associated GFR level [...] or urine or abnormalities in imaging tests). [facility] WITH [id number] 05:55:42 Test Item Value Reference Range Interpretation Comments WBC (test code = See_Comment [Automated 2190-2) message] The sy stem which generated this result transmitted reference range : 4.30 - 11.10 10*3/?L. The reference range was not used to interpret this result as normal/abnormal . RBC (test code = See_Comment [Automated 389-8) message] The sy stem which generated this result transmitted reference range : 3.93 - 5.25 10*6/?L. The reference range was not used to interpret this result as normal/abnormal . HGB (test code = 14.2 g/dL 11.6-15.0 718-7) HCT (test code = 43.3 % 35.7-45.2 4544-3) MCV (test code = 86.1 fL 80.6-95.5 787-2) MCH (test code = 28.2 pg 25.9-32.8 785-6) MCHC (test code = 32.8 g/dL 31.6-35.1 786-4) RDW-SD (test code = 39.4 fL 39.0-49.9 77282-7) RDW-CV (test code = 12.6 % 12.0-15.5 788-0) PLT (test code = See_Comment H [Automated 737-3) message] The sy stem which generated this result transmitted reference range : 166 - 358 10*3/ ?L. The reference r rachana was not used to interpret this result as normal/abnormal . MPV (test code = 9.8 fL 9.5-12.9 25708-4) NRBC/100 WBC (test See_Comment [Automat ed code = 5718329813) message] The system which generated this result transmitted reference range : 0.0 - 10.0 /100 WBCs. The refer ence range was not u sed to interpret th is result as normal/abnormal . NRBC x10^3 (test code <0.01 See_Comment [Auto mated = 8298372566) message] The s ystem which generated this result transmitted reference range : 10*3/?L. The reference range was not used to interpret this result as normal/abnormal . GRAN MAT (NEUT) % 54.7 % (test code = 770-8) IMM GRAN % (test code 0.30 % = 0381007250) LYMPH % (test code = 33.5 % 736-9) MONO % (test code = 7.4 % 5905-5) EOS % (test code = 3.5 % 713-8) BASO % (test code = 0.6 % 706-2) GRAN MAT x10^3(ANC) 5.24 10*3/uL 1.88-7.09 (test code = 4387669861) IMM GRAN x10^3 (test 0.03 10*3/uL 0.00-0.06 code = 0482344742) LYMPH x10^3 (test code 3.22 10*3/uL 1.32-3.29 = 731-0) MONO x10^3 (test code 0.71 10*3/uL 0.33-0.92 = 742-7) EOS x10^3 (test code = 0.34 10*3/uL 0.03-0.39 711-2) BASO x10^3 (test code 0.06 10*3/uL 0.01-0.07 = 704-7) Lab Interpretation Abnormal (test code = 10213-7) [facility] by [facility]-PCR (HIGH RISK) 2020-10-13 00:00:00 Test Item Value Reference Range Interpretation Comments SARS-CoV-2 INTERPRETATION (test NEGATIVE code = 40700) SOURCE (test code = 18373) NOT SPECIFIED SARS-CoV-2 (COVID-19) by RT-PCR (HIGH RISK)2020-10-13 00:00:00 Test Item Value Reference Range Interpretation Comments SARS-CoV-2 INTERPRETATION (test NEGATIVE code = 10175) SOURCE (test code = 87337) NOT SPECIFIED SARS-CoV-2 (COVID-19) by RT-PCR (HIGH RISK)2020-10-13 00:00:00 Test Item Value Reference Range Interpretation Comments SARS-CoV-2 INTERPRETATION (test NEGATIVE code = 30819) SOURCE (test code = 93361) NOT SPECIFIED SARS-CoV-2 (COVID-19) by RT-PCR (HIGH RISK)2020-10-13 00:00:00 Test Item Value Reference Range Interpretation Comments SARS-CoV-2 INTERPRETATION (test NEGATIVE code = 48129) SOURCE (test code = 59303) NOT SPECIFIED SARS-CoV-2 (COVID-19) by RT-PCR (HIGH RISK)2020-10-13 00:00:00 Test Item Value Reference Range Interpretation Comments SARS-CoV-2 INTERPRETATION (test NEGATIVE code = 78301) SOURCE (test code = 38044) NOT SPECIFIED SARS-CoV-2 (COVID-19) by RT-PCR (HIGH RISK)2020-10-13 00:00:00 Test Item Value Reference Range Interpretation Comments SARS-CoV-2 INTERPRETATION (test NEGATIVE code = 47053) SOURCE (test code = 43538) NOT SPECIFIED SARS-CoV-2 (COVID-19) by RT-PCR (HIGH RISK)2020-10-13 00:00:00 Test Item Value Reference Range Interpretation Comments SARS-CoV-2 INTERPRETATION (test NEGATIVE code = 49352) SOURCE (test code = 40698) NOT SPECIFIED SARS-CoV-2 (COVID-19) by RT-PCR (HIGH RISK)2020-04-02 00:00:00 Test Item Value Reference Range Interpretation Comments SARS-CoV-2 INTERPRETATION (test NEGATIVE code = 59515) SOURCE (test code = 96599) NOT SPECIFIED SARS-CoV-2 (COVID-19) by RT-PCR (HIGH RISK)2020-04-02 00:00:00 Test Item Value Reference Range Interpretation Comments SARS-CoV-2 INTERPRETATION (test NEGATIVE code = 22974) SOURCE (test code = 06256) NOT SPECIFIED SARS-CoV-2 (COVID-19) by RT-PCR (HIGH RISK)2020-04-02 00:00:00 Test Item Value Reference Range Interpretation Comments SARS-CoV-2 INTERPRETATION (test NEGATIVE code = 39032) SOURCE (test code = 55008) NOT SPECIFIED SARS-CoV-2 (COVID-19) by RT-PCR (HIGH RISK)2020-04-02 00:00:00 Test Item Value Reference Range Interpretation Comments SARS-CoV-2 INTERPRETATION (test NEGATIVE code = 77654) SOURCE (test code = 12349) NOT SPECIFIED SARS-CoV-2 (COVID-19) by RT-PCR (HIGH RISK)2020-04-02 00:00:00 Test Item Value Reference Range Interpretation Comments SARS-CoV-2 INTERPRETATION (test NEGATIVE code = 61937) SOURCE (test code = 70792) NOT SPECIFIED SARS-CoV-2 (COVID-19) by RT-PCR (HIGH RISK)2020-04-02 00:00:00 Test Item Value Reference Range Interpretation Comments SARS-CoV-2 INTERPRETATION (test NEGATIVE code = 50150) SOURCE (test code = 69916) NOT SPECIFIED SARS-CoV-2 (COVID-19) by RT-PCR (HIGH RISK)2020-04-02 00:00:00 Test Item Value Reference Range Interpretation Comments SARS-CoV-2 INTERPRETATION (test NEGATIVE code = 80520) SOURCE (test code = 80128) NOT SPECIFIED GC AND CHLAMYDIA AMPLIFIED, [id number] 00:00:00 Test Item Value Reference Range Interpretation Comments GONORRHEA, TMA (test code = 69547) NEGATIVE CHLAMYDIA, TMA (test code = 71436) NEGATIVE GC AND CHLAMYDIA AMPLIFIED, [id number] 00:00:00 Test Item Value Reference Range Interpretation Comments GONORRHEA, TMA (test code = 32052) NEGATIVE CHLAMYDIA, TMA (test code = 89626) NEGATIVE PAP TEST, THINPREP, [id number] 00:00:00 Test Item Value Reference Range Interpretation Comments SOURCE: (test code = Cervical/Vaginal/Endo 8001) cervical SLIDES: (test code = 1 8011) LMP: (test code = 8021) 10/31/2019 SPECIMEN ADEQUACY: (test (NOTE) code = 74824) INTERPRETATION: (test NILM/NO EPITH. code = 67699) ABNORMALITY;SEE BELOW OFFSET PRESS OPERATOR: (test Jenniffer code = 8101) [facility]areedCT(ASCP)IAC LOCATION: (test code = (NOTE) 05720) CPT: (test code = 8140) (NOTE) PAP TEST, THINPREP, [id number] 00:00:00 Test Item Value Reference Range Interpretation Comments SOURCE: (test code = Cervical/Vaginal/Endo 8001) cervical SLIDES: (test code = 1 8011) LMP: (test code = 8021) 10/31/2019 SPECIMEN ADEQUACY: (test (NOTE) code = 67945) INTERPRETATION: (test NILM/NO EPITH. code = 28969) ABNORMALITY;SEE BELOW OFFSET PRESS OPERATOR: (test Jenniffer code = 8101) [facility]areedCT(ASCP)IAC LOCATION: (test code = (NOTE) 28220) CPT: (test code = 8140) (NOTE) HPV HIGH RISK WITH GENOTYPE, [id number] 00:00:00 Test Item Value Reference Range Interpretation Comments HPV HIGH RISK INTERP (test code = NEGATIVE 10147) HPV 16 (test code = 61792) NEGATIVE HPV 18 (test code = 84878) NEGATIVE HPV, HR, OTHER GENOTYPES (test code NEGATIVE = 68219) HPV HIGH RISK WITH GENOTYPE, [id number] 00:00:00 Test Item Value Reference Range Interpretation Comments HPV HIGH RISK INTERP (test code = NEGATIVE 51928) HPV 16 (test code = 38008) NEGATIVE HPV 18 (test code = 82102) NEGATIVE HPV, HR, OTHER GENOTYPES (test code NEGATIVE = 92560) GC AND CHLAMYDIA AMPLIFIED, [id number] 00:00:00 Test Item Value Reference Range Interpretation Comments GONORRHEA, TMA (test code = 99010) NEGATIVE CHLAMYDIA, TMA (test code = 36381) NEGATIVE GC AND CHLAMYDIA AMPLIFIED, [id number] 00:00:00 Test Item Value Reference Range Interpretation Comments GONORRHEA, TMA (test code = 82595) NEGATIVE CHLAMYDIA, TMA (test code = 18587) NEGATIVE PAP TEST, THINPREP, [id number] 00:00:00 Test Item Value Reference Range Interpretation Comments SOURCE: (test code = Cervical/Vaginal/Endo 8001) cervical SLIDES: (test code = 1 8011) LMP: (test code = 8021) 10/31/2019 SPECIMEN ADEQUACY: (test (NOTE) code = 73850) INTERPRETATION: (test NILM/NO EPITH. code = 42178) ABNORMALITY;SEE BELOW OFFSET PRESS OPERATOR: (test Jenniffer code = 8101) [facility]ed[facility](ASCP)IAC LOCATION: (test code = (NOTE) 54477) CPT: (test code = 8140) (NOTE) PAP TEST, THINPREP, [id number] 00:00:00 Test Item Value Reference Range Interpretation Comments SOURCE: (test code = Cervical/Vaginal/Endo 8001) cervical SLIDES: (test code = 1 8011) LMP: (test code = 8021) 10/31/2019 SPECIMEN ADEQUACY: (test (NOTE) code = 95950) INTERPRETATION: (test NILM/NO EPITH. code = 99407) ABNORMALITY;SEE BELOW OFFSET PRESS OPERATOR: (test Jenniffer code = 8101) [facility]edCT(ASCP)IAC LOCATION: (test code = (NOTE) 73400) CPT: (test code = 8140) (NOTE) HPV HIGH RISK WITH GENOTYPE, [id number] 00:00:00 Test Item Value Reference Range Interpretation Comments HPV HIGH RISK INTERP (test code = NEGATIVE 40639) HPV 16 (test code = 12725) NEGATIVE HPV 18 (test code = 13926) NEGATIVE HPV, HR, OTHER GENOTYPES (test code NEGATIVE = 14716) HPV HIGH RISK WITH GENOTYPE, [id number] 00:00:00 Test Item Value Reference Range Interpretation Comments HPV HIGH RISK INTERP (test code = NEGATIVE 25885) HPV 16 (test code = 41198) NEGATIVE HPV 18 (test code = 20844) NEGATIVE HPV, HR, OTHER GENOTYPES (test code NEGATIVE = 31884) GC AND CHLAMYDIA AMPLIFIED, [id number] 00:00:00 Test Item Value Reference Range Interpretation Comments GONORRHEA, TMA (test code = 08401) NEGATIVE CHLAMYDIA, TMA (test code = 87868) NEGATIVE GC AND CHLAMYDIA AMPLIFIED, [id number] 00:00:00 Test Item Value Reference Range Interpretation Comments GONORRHEA, TMA (test code = 41951) NEGATIVE CHLAMYDIA, TMA (test code = 92116) NEGATIVE PAP TEST, THINPREP, [id number] 00:00:00 Test Item Value Reference Range Interpretation Comments SOURCE: (test code = Cervical/Vaginal/Endo 8001) cervical SLIDES: (test code = 1 8011) LMP: (test code = 8021) 10/31/2019 SPECIMEN ADEQUACY: (test (NOTE) code = 69817) INTERPRETATION: (test NILM/NO EPITH. code = 66020) ABNORMALITY;SEE BELOW OFFSET PRESS OPERATOR: (test Jenniffer code = 8101) [facility]ed[facility](ASCP)IAC LOCATION: (test code = (NOTE) 05771) CPT: (test code = 8140) (NOTE) PAP TEST, THINPREP, [id number] 00:00:00 Test Item Value Reference Range Interpretation Comments SOURCE: (test code = Cervical/Vaginal/Endo 8001) cervical SLIDES: (test code = 1 8011) LMP: (test code = 8021) 10/31/2019 SPECIMEN ADEQUACY: (test (NOTE) code = 72678) INTERPRETATION: (test NILM/NO EPITH. code = 63409) ABNORMALITY;SEE BELOW OFFSET PRESS OPERATOR: (test Jenniffer code = 8101) MELODY Guerrier(ASCP)IAC LOCATION: (test code = (NOTE) 38416) CPT: (test code = 8140) (NOTE) HPV HIGH RISK WITH GENOTYPE, [id number] 00:00:00 Test Item Value Reference Range Interpretation Comments HPV HIGH RISK INTERP (test code = NEGATIVE 10715) HPV 16 (test code = 75026) NEGATIVE HPV 18 (test code = 57750) NEGATIVE HPV, HR, OTHER GENOTYPES (test code NEGATIVE = 33764) HPV HIGH RISK WITH GENOTYPE, [id number] 00:00:00 Test Item Value Reference Range Interpretation Comments HPV HIGH RISK INTERP (test code = NEGATIVE 92709) HPV 16 (test code = 28299) NEGATIVE HPV 18 (test code = 17806) NEGATIVE HPV, HR, OTHER GENOTYPES (test code NEGATIVE = 63052) GC AND CHLAMYDIA AMPLIFIED, [id number] 00:00:00 Test Item Value Reference Range Interpretation Comments GONORRHEA, TMA (test code = 94190) NEGATIVE CHLAMYDIA, TMA (test code = 22482) NEGATIVE PAP TEST, THINPREP, [id number] 00:00:00 Test Item Value Reference Range Interpretation Comments SOURCE: (test code = Cervical/Vaginal/Endo 8001) cervical SLIDES: (test code = 1 8011) LMP: (test code = 8021) 10/31/2019 SPECIMEN ADEQUACY: (test (NOTE) code = 23492) INTERPRETATION: (test NILM/NO EPITH. code = 32798) ABNORMALITY;SEE BELOW OFFSET PRESS OPERATOR: (test [place] code = 8101) MELODY Guerrier(ASCP)IAC LOCATION: (test code = (NOTE) 32981) CPT: (test code = 8140) (NOTE) HPV HIGH RISK WITH GENOTYPE, [id number] 00:00:00 Test Item Value Reference Range Interpretation Comments HPV HIGH RISK INTERP (test code = NEGATIVE 18377) HPV 16 (test code = 55138) NEGATIVE HPV 18 (test code = 21862) NEGATIVE HPV, HR, OTHER GENOTYPES (test code NEGATIVE = 96798) CBC W/AUTO [id number] 00:00:00 Test Item Value Reference Range Interpretation Comments WBC (test code = 1001) 8.0 K/UL RBC (test code = 1002) 4.63 M/UL HEMOGLOBIN (test code = 1003) 13.4 G/DL HEMATOCRIT (test code = 1004) 39.5 % MCV (test code = 1005) 85.3 fL MCH (test code = 1006) 28.9 PG MCHC (test code = 1007) 33.9 G/DL RDW (test code = 1038) 12.2 % NEUTROPHILS (test code = 1008) 59.6 % LYMPHOCYTES (test code = 1010) 29.3 % MONOCYTES (test code = 1011) 7.4 % EOSINOPHILS (test code = 1012) 2.9 % BASOPHILS (test code = 1013) 0.8 % PLATELET COUNT (test code = 1015) 407 K/UL CBC W/AUTO [id number] 00:00:00 Test Item Value Reference Range Interpretation Comments WBC (test code = 1001) 8.0 K/UL RBC (test code = 1002) 4.63 M/UL HEMOGLOBIN (test code = 1003) 13.4 G/DL HEMATOCRIT (test code = 1004) 39.5 % MCV (test code = 1005) 85.3 fL MCH (test code = 1006) 28.9 PG MCHC (test code = 1007) 33.9 G/DL RDW (test code = 1038) 12.2 % NEUTROPHILS (test code = 1008) 59.6 % LYMPHOCYTES (test code = 1010) 29.3 % MONOCYTES (test code = 1011) 7.4 % EOSINOPHILS (test code = 1012) 2.9 % BASOPHILS (test code = 1013) 0.8 % PLATELET COUNT (test code = 1015) 407 K/UL CBC W/AUTO [id number] 00:00:00 Test Item Value Reference Range Interpretation Comments WBC (test code = 1001) 8.0 K/UL RBC (test code = 1002) 4.63 M/UL HEMOGLOBIN (test code = 1003) 13.4 G/DL HEMATOCRIT (test code = 1004) 39.5 % MCV (test code = 1005) 85.3 fL MCH (test code = 1006) 28.9 PG MCHC (test code = 1007) 33.9 G/DL RDW (test code = 1038) 12.2 % NEUTROPHILS (test code = 1008) 59.6 % LYMPHOCYTES (test code = 1010) 29.3 % MONOCYTES (test code = 1011) 7.4 % EOSINOPHILS (test code = 1012) 2.9 % BASOPHILS (test code = 1013) 0.8 % PLATELET COUNT (test code = 1015) 407 K/UL [id number] 00:00:00 Test Item Value Reference Range Interpretation Comments FERRITIN (test code = 5) 38 NG/ML [id number] 00:00:00 Test Item Value Reference Range Interpretation Comments FERRITIN (test code = 5) 38 NG/ML IRON BINDING CAPACITY AND IRON AND % [id number] 00:00:00 Test Item Value Reference Range Interpretation Comments IRON, SERUM (test code = 2221) 58 UG/DL UNSATURATED IBC (test code = ) 231 UG/DL CALC TOTAL IBC (test code = 2076) 289 UG/DL CALC % IRON SAT (test code = 2078) 20 % IRON BINDING CAPACITY AND IRON AND % [id number] 00:00:00 Test Item Value Reference Range Interpretation Comments IRON, SERUM (test code = 2) 58 UG/DL UNSATURATED IBC (test code = 24046) 231 UG/DL CALC TOTAL IBC (test code = 2076) 289 UG/DL CALC % IRON SAT (test code = 2078) 20 % [id number] 00:00:00 Test Item Value Reference Range Interpretation Comments TRANSFERRIN (test code = 4936) 258 MG/DL [id number] 00:00:00 Test Item Value Reference Range Interpretation Comments TRANSFERRIN (test code = 4936) 258 MG/DL CBC W/AUTO [id number] 00:00:00 Test Item Value Reference Range Interpretation Comments WBC (test code = 1001) 8.0 K/UL RBC (test code = 1002) 4.63 M/UL HEMOGLOBIN (test code = 1003) 13.4 G/DL HEMATOCRIT (test code = 1004) 39.5 % MCV (test code = 1005) 85.3 fL MCH (test code = 1006) 28.9 PG MCHC (test code = 1007) 33.9 G/DL RDW (test code = 1038) 12.2 % NEUTROPHILS (test code = 1008) 59.6 % LYMPHOCYTES (test code = 1010) 29.3 % MONOCYTES (test code = 1011) 7.4 % EOSINOPHILS (test code = 1012) 2.9 % BASOPHILS (test code = 1013) 0.8 % PLATELET COUNT (test code = 1015) 407 K/UL CBC W/AUTO [id number] 00:00:00 Test Item Value Reference Range Interpretation Comments WBC (test code = 1001) 8.0 K/UL RBC (test code = 1002) 4.63 M/UL HEMOGLOBIN (test code = 1003) 13.4 G/DL HEMATOCRIT (test code = 1004) 39.5 % MCV (test code = 1005) 85.3 fL MCH (test code = 1006) 28.9 PG MCHC (test code = 1007) 33.9 G/DL RDW (test code = 1038) 12.2 % NEUTROPHILS (test code = 1008) 59.6 % LYMPHOCYTES (test code = 1010) 29.3 % MONOCYTES (test code = 1011) 7.4 % EOSINOPHILS (test code = 1012) 2.9 % BASOPHILS (test code = 1013) 0.8 % PLATELET COUNT (test code = 1015) 407 K/UL CBC W/AUTO [id number] 00:00:00 Test Item Value Reference Range Interpretation Comments WBC (test code = 1001) 8.0 K/UL RBC (test code = 1002) 4.63 M/UL HEMOGLOBIN (test code = 1003) 13.4 G/DL HEMATOCRIT (test code = 1004) 39.5 % MCV (test code = 1005) 85.3 fL MCH (test code = 1006) 28.9 PG MCHC (test code = 1007) 33.9 G/DL RDW (test code = 1038) 12.2 % NEUTROPHILS (test code = 1008) 59.6 % LYMPHOCYTES (test code = 1010) 29.3 % MONOCYTES (test code = 1011) 7.4 % EOSINOPHILS (test code = 1012) 2.9 % BASOPHILS (test code = 1013) 0.8 % PLATELET COUNT (test code = 1015) 407 K/UL [id number] 00:00:00 Test Item Value Reference Range Interpretation Comments FERRITIN (test code = 2074) 38 NG/ML [id number] 00:00:00 Test Item Value Reference Range Interpretation Comments FERRITIN (test code = 2074) 38 NG/ML IRON BINDING CAPACITY AND IRON AND % [id number] 00:00:00 Test Item Value Reference Range Interpretation Comments IRON, SERUM (test code = 2) 58 UG/DL UNSATURATED IBC (test code = 16576) 231 UG/DL CALC TOTAL IBC (test code = 7) 289 UG/DL CALC % IRON SAT (test code = 9) 20 % IRON BINDING CAPACITY AND IRON AND % [id number] 00:00:00 Test Item Value Reference Range Interpretation Comments IRON, SERUM (test code = 2) 58 UG/DL UNSATURATED IBC (test code = 22535) 231 UG/DL CALC TOTAL IBC (test code = 7) 289 UG/DL CALC % IRON SAT (test code = 9) 20 % [id number] 00:00:00 Test Item Value Reference Range Interpretation Comments TRANSFERRIN (test code = 4936) 258 MG/DL [id number] 00:00:00 Test Item Value Reference Range Interpretation Comments TRANSFERRIN (test code = 4936) 258 MG/DL CBC W/AUTO [id number] 00:00:00 Test Item Value Reference Range Interpretation Comments WBC (test code = 1001) 8.0 K/UL RBC (test code = 1002) 4.63 M/UL HEMOGLOBIN (test code = 1003) 13.4 G/DL HEMATOCRIT (test code = 1004) 39.5 % MCV (test code = 1005) 85.3 fL MCH (test code = 1006) 28.9 PG MCHC (test code = 1007) 33.9 G/DL RDW (test code = 1038) 12.2 % NEUTROPHILS (test code = 1008) 59.6 % LYMPHOCYTES (test code = 1010) 29.3 % MONOCYTES (test code = 1011) 7.4 % EOSINOPHILS (test code = 1012) 2.9 % BASOPHILS (test code = 1013) 0.8 % PLATELET COUNT (test code = 1015) 407 K/UL CBC W/AUTO [id number] 00:00:00 Test Item Value Reference Range Interpretation Comments WBC (test code = 1001) 8.0 K/UL RBC (test code = 1002) 4.63 M/UL HEMOGLOBIN (test code = 1003) 13.4 G/DL HEMATOCRIT (test code = 1004) 39.5 % MCV (test code = 1005) 85.3 fL MCH (test code = 1006) 28.9 PG MCHC (test code = 1007) 33.9 G/DL RDW (test code = 1038) 12.2 % NEUTROPHILS (test code = 1008) 59.6 % LYMPHOCYTES (test code = 1010) 29.3 % MONOCYTES (test code = 1011) 7.4 % EOSINOPHILS (test code = 1012) 2.9 % BASOPHILS (test code = 1013) 0.8 % PLATELET COUNT (test code = 1015) 407 K/UL CBC W/AUTO [id number] 00:00:00 Test Item Value Reference Range Interpretation Comments WBC (test code = 1001) 8.0 K/UL RBC (test code = 1002) 4.63 M/UL HEMOGLOBIN (test code = 1003) 13.4 G/DL HEMATOCRIT (test code = 1004) 39.5 % MCV (test code = 1005) 85.3 fL MCH (test code = 1006) 28.9 PG MCHC (test code = 1007) 33.9 G/DL RDW (test code = 1038) 12.2 % NEUTROPHILS (test code = 1008) 59.6 % LYMPHOCYTES (test code = 1010) 29.3 % MONOCYTES (test code = 1011) 7.4 % EOSINOPHILS (test code = 1012) 2.9 % BASOPHILS (test code = 1013) 0.8 % PLATELET COUNT (test code = 1015) 407 K/UL [id number] 00:00:00 Test Item Value Reference Range Interpretation Comments FERRITIN (test code = 2074) 38 NG/ML [id number] 00:00:00 Test Item Value Reference Range Interpretation Comments FERRITIN (test code = 2074) 38 NG/ML IRON BINDING CAPACITY AND IRON AND % [id number] 00:00:00 Test Item Value Reference Range Interpretation Comments IRON, SERUM (test code = 2) 58 UG/DL UNSATURATED IBC (test code = 86399) 231 UG/DL CALC TOTAL IBC (test code = 2076) 289 UG/DL CALC % IRON SAT (test code = 2078) 20 % IRON BINDING CAPACITY AND IRON AND % [id number] 00:00:00 Test Item Value Reference Range Interpretation Comments IRON, SERUM (test code = 2) 58 UG/DL UNSATURATED IBC (test code = 88980) 231 UG/DL CALC TOTAL IBC (test code = 2076) 289 UG/DL CALC % IRON SAT (test code = 2078) 20 % [id number] 00:00:00 Test Item Value Reference Range Interpretation Comments TRANSFERRIN (test code = 4936) 258 MG/DL [id number] 00:00:00 Test Item Value Reference Range Interpretation Comments TRANSFERRIN (test code = 4936) 258 MG/DL CBC W/AUTO [id number] 00:00:00 Test Item Value Reference Range Interpretation Comments WBC (test code = 1001) 8.0 K/UL RBC (test code = 1002) 4.63 M/UL HEMOGLOBIN (test code = 1003) 13.4 G/DL HEMATOCRIT (test code = 1004) 39.5 % MCV (test code = 1005) 85.3 fL MCH (test code = 1006) 28.9 PG MCHC (test code = 1007) 33.9 G/DL RDW (test code = 1038) 12.2 % NEUTROPHILS (test code = 1008) 59.6 % LYMPHOCYTES (test code = 1010) 29.3 % MONOCYTES (test code = 1011) 7.4 % EOSINOPHILS (test code = 1012) 2.9 % BASOPHILS (test code = 1013) 0.8 % PLATELET COUNT (test code = 1015) 407 K/UL CBC W/AUTO [id number] 00:00:00 Test Item Value Reference Range Interpretation Comments WBC (test code = 1001) 8.0 K/UL RBC (test code = 1002) 4.63 M/UL HEMOGLOBIN (test code = 1003) 13.4 G/DL HEMATOCRIT (test code = 1004) 39.5 % MCV (test code = 1005) 85.3 fL MCH (test code = 1006) 28.9 PG MCHC (test code = 1007) 33.9 G/DL RDW (test code = 1038) 12.2 % NEUTROPHILS (test code = 1008) 59.6 % LYMPHOCYTES (test code = 1010) 29.3 % MONOCYTES (test code = 1011) 7.4 % EOSINOPHILS (test code = 1012) 2.9 % BASOPHILS (test code = 1013) 0.8 % PLATELET COUNT (test code = 1015) 407 K/UL [id number] 00:00:00 Test Item Value Reference Range Interpretation Comments FERRITIN (test code = 5) 38 NG/ML IRON BINDING CAPACITY AND IRON AND % [id number] 00:00:00 Test Item Value Reference Range Interpretation Comments IRON, SERUM (test code = 2222) 58 UG/DL UNSATURATED IBC (test code = 42695) 231 UG/DL CALC TOTAL IBC (test code = 7) 289 UG/DL CALC % IRON SAT (test code = 2078) 20 % [id number] 00:00:00 Test Item Value Reference Range Interpretation Comments TRANSFERRIN (test code = 4936) 258 MG/DL Complete Metabolic [id number] 09:25:00 Test Item Value Reference Range Interpretation Comments NA (test code = 140 mmol/L 135-145 3650056677) K (test code = 3.7 mmol/L 3.5-5 0848148081) CL (test code = 108 mmol/L 98-108 4517990120) CO2 TOTAL (test code = 24 mmol/L 23-31 8130361977) AGAP (test code = 2-16 3772903217) BUN (test code = 10 mg/dL 7-23 3420557055) GLUCOSE (test code = 107 mg/dL 70-110 7001460899) CREATININE (test code 0.63 mg/dL 0.5-1.04 = 9811480509) TOTAL BILI (test code 0.5 mg/dL 0.1-1.1 = 4249235970) CALCIUM (test code = 9.4 mg/dL 8.6-10.6 3332530357) T PROTEIN (test code = 7.5 g/dL 6.3-8.2 0575774091) ALBUMIN (test code = 4.5 g/dL 3.5-5 1985857139) ALK PHOS (test code = 74 U/L 34-122 2444902215) ALTv (test code = 32 U/L 5-35 2-6) AST(SGOT) (test code = 31 U/L 13-40 1638473978) eGFR Calculation mL/min/1.73m2 (Non-) (test code = 5308952129) eGFR Calculation mL/min/1.73m2 () (test code = 3790010368) MATEO (test code = MATEO) Association of Glomerular Filtration Rate (GFR) and Staging of Kidney Disease* + -+ + ---+| GFR (mL/min/1.73 m2) ?| With Kidney Damage ?| ?Without Kidney Damage+ -------+ ------+ ---------+| ?>90 ?| ?Stage one ?| ? Normal ?+ --+ -+ ----+| ?60-89 ?| ?Stage two ?| ? Decreased GFR ? + -+ + ---+| ?30-59 ?| ?Stage three ?| ? Stage three ? + -+ + ---+| ?15-29 ?| ?Stage four ? | ? Stage four ?+ --+ -+ ----+| ?<15 (or dialysis) ? ?| ?Stage five ? | ? Stage five ?+ --+ -+ ----+ *Each stage assumes the associated GFR level [...] or urine or abnormalities in imaging tests). [facility] [id number] 09:25:00 Test Item Value Reference Range Interpretation Comments LIPASE (test code = 2548647562) 102 U/L 0-220 Lab Interpretation (test code = Normal 22388-7) [facility]inalysis[facility] 09:23:00 Test Item Value Reference Range Interpretation Comments APPEARANCE (test code = Clear Clear 7046707703) COLOR (test code = Yellow Yellow 7014779282) PH (test code = 4.8-8.0 7780555016) SP GRAVITY (test code = 1.003-1.030 5007619206) GLU U QUAL (test code = Normal Normal 2095886705) BLOOD (test code = 2+ Negative A 0505358192) KETONES (test code = Negative Negative 5372014920) PROTEIN (test code = Negative Negative 2887-8) UROBILIN (test code = Normal Normal 1141297458) BILIRUBIN (test code = Negative Negative 7770932826) NITRITE (test code = Negative Negative 9629968603) LEUK MEHDI (test code = Negative Negative 7244602496) RBC/HPF (test code = See_Comment [Autom ated message] 3862309218) The system [employer] generated this result transmitted ref erence range: 0 - 3 HP F. The reference range was not used to int erpret this result as normal/abnormal . WBC/HPF (test code = See_Comment [Autom ated message] 8926315742) The system [employer] generated this result transmitted ref erence range: 0 - 5 HP F. The reference range was not used to int erpret this result as normal/abnormal . BACTERIA (test code = Few Negative A 1677539265) MUCOUS (test code = Slight Negative LPF A 0795420284) SQ EPITH (test code = HPF 8067257652) Lab Interpretation (test Abnormal code = 75719-3) [facility]CBC WITH [id number] 09:10:00 Test Item Value Reference Range Interpretation [...] RDW-SD (test code = 39.2 fL 39-49.9 35374-7) RDW-CV (test code = 12.1 % 12-15.5 788-0) PLT (test code = See_Comment [Automated 777-3) message] The sy stem which generated this result transmitted reference range : 166 - 358 10*3/ ?L. The reference r rachana was not used to interpret this result as normal/abnormal . MPV (test code = 9.2 fL 9.5-12.9 L 82332-3) NRBC/100 WBC (test See_Comment [Automat ed code = 5860287840) message] The system which generated this result transmitted reference range : 0.0 - 10.0 /100 WBCs. The refer ence range was not u sed to interpret th is result as normal/abnormal . NRBC x10^3 (test code <0.01 See_Comment [Auto mated = 0232712302) message] The s ystem which generated this result transmitted reference range : 10*3/?L. The reference range was not used to interpret this result as normal/abnormal . GRAN MAT (NEUT) % 65.3 % (test code = 770-8) IMM GRAN % (test code 0.50 % = 6929418859) LYMPH % (test code = 25.2 % 736-9) MONO % (test code = 7.1 % 5905-5) EOS % (test code = 1.5 % 713-8) BASO % (test code = 0.4 % 706-2) GRAN MAT x10^3(ANC) 7.13 10*3/uL 1.88-7.09 H (test code = 0718150127) IMM GRAN x10^3 (test 0.05 10*3/uL 0-0.06 code = 8045605549) LYMPH x10^3 (test code 2.75 10*3/uL 1.32-3.29 = 731-0) MONO x10^3 (test code 0.77 10*3/uL 0.33-0.92 = 742-7) EOS x10^3 (test code = 0.16 10*3/uL 0.03-0.39 711-2) BASO x10^3 (test code 0.04 10*3/uL 0.01-0.07 = 704-7) Lab Interpretation Abnormal (test code = 06888-9) [facility] HospitalPOTN [id number] 09:00:00 Test Item Value Reference Range Interpretation Comments POCT PREG (test code = 1605) Negative On board controls acceptable with Present C Line (test code = 3574) POCT PREG LOT # (test code = 3575) [id number] POCT PREG TEST DATE (test 04/16/2021 code = 3576) Lab Interpretation (test code = Normal 14538-9) [facility], THINPREP, [id number] 00:00:00 Test Item Value Reference Range Interpretation Comments SOURCE: (test code = Cervical/Endocervical 8001) SLIDES: (test code = 1 8011) LMP: (test code = 11/25/2016 8021) SPECIMEN ADEQUACY: (NOTE) (test code = 54553) INTERPRETATION: (test NO EPITHELIAL code = 76234) ABNORMALITY SEE BELOW OFFSET PRESS OPERATOR: MELODY Og (ASCP) (test code = 8101) LOCATION: (test code (NOTE) = 70113) CPT: (test code = (NOTE) 8140) PAP TEST, THINPREP, [id number] 00:00:00 Test Item Value Reference Range Interpretation Comments SOURCE: (test code = Cervical/Endocervical 8001) SLIDES: (test code = 1 8011) LMP: (test code = 11/25/2016 8021) SPECIMEN ADEQUACY: (NOTE) (test code = 02716) INTERPRETATION: (test NO EPITHELIAL code = 64416) ABNORMALITY SEE BELOW OFFSET PRESS OPERATOR: MELODY Og (ASCP) (test code = 8101) LOCATION: (test code (NOTE) = 41946) CPT: (test code = (NOTE) 8140) HPV HIGH RISK WITH GENOTYPE, [id number] 00:00:00 Test Item Value Reference Range Interpretation Comments HPV HIGH RISK INTERP (test code = NEGATIVE 32659) HPV 16 (test code = 13576) NEGATIVE HPV 18 (test code = 56798) NEGATIVE HPV, HR, OTHER GENOTYPES (test code NEGATIVE = 72786) HPV HIGH RISK WITH GENOTYPE, [id number] 00:00:00 Test Item Value Reference Range Interpretation Comments HPV HIGH RISK INTERP (test code = NEGATIVE 76304) HPV 16 (test code = 20392) NEGATIVE HPV 18 (test code = 33534) NEGATIVE HPV, HR, OTHER GENOTYPES (test code NEGATIVE = 60468) PAP TEST, THINPREP, [id number] 00:00:00 Test Item Value Reference Range Interpretation Comments SOURCE: (test code = Cervical/Endocervical 8001) SLIDES: (test code = 1 8011) LMP: (test code = 11/25/2016 8021) SPECIMEN ADEQUACY: (NOTE) (test code = 03645) INTERPRETATION: (test NO EPITHELIAL code = 62709) ABNORMALITY SEE BELOW OFFSET PRESS OPERATOR: MELODY Og (ASCP) (test code = 8101) LOCATION: (test code (NOTE) = 31300) CPT: (test code = (NOTE) 8140) PAP TEST, THINPREP, [id number] 00:00:00 Test Item Value Reference Range Interpretation Comments SOURCE: (test code = Cervical/Endocervical 8001) SLIDES: (test code = 1 8011) LMP: (test code = 11/25/2016 8021) SPECIMEN ADEQUACY: (NOTE) (test code = 89317) INTERPRETATION: (test NO EPITHELIAL code = 77598) ABNORMALITY SEE BELOW OFFSET PRESS OPERATOR: MELODY Og (ASCP) (test code = 8101) LOCATION: (test code (NOTE) = 65334) CPT: (test code = (NOTE) 8140) HPV HIGH RISK WITH GENOTYPE, [id number] 00:00:00 Test Item Value Reference Range Interpretation Comments HPV HIGH RISK INTERP (test code = NEGATIVE 92634) HPV 16 (test code = 86694) NEGATIVE HPV 18 (test code = 24386) NEGATIVE HPV, HR, OTHER GENOTYPES (test code NEGATIVE = 68546) HPV HIGH RISK WITH GENOTYPE, [id number] 00:00:00 Test Item Value Reference Range Interpretation Comments HPV HIGH RISK INTERP (test code = NEGATIVE 48668) HPV 16 (test code = 20805) NEGATIVE HPV 18 (test code = 62695) NEGATIVE HPV, HR, OTHER GENOTYPES (test code NEGATIVE = 32883) PAP TEST, THINPREP, [id number] 00:00:00 Test Item Value Reference Range Interpretation Comments SOURCE: (test code = Cervical/Endocervical 8001) SLIDES: (test code = 1 8011) LMP: (test code = 11/25/2016 8021) SPECIMEN ADEQUACY: (NOTE) (test code = 04528) INTERPRETATION: (test NO EPITHELIAL code = 07857) ABNORMALITY SEE BELOW OFFSET PRESS OPERATOR: MELODY Og (ASCP) (test code = 8101) LOCATION: (test code (NOTE) = 81983) CPT: (test code = (NOTE) 8140) PAP TEST, THINPREP, [id number] 00:00:00 Test Item Value Reference Range Interpretation Comments SOURCE: (test code = Cervical/Endocervical 8001) SLIDES: (test code = 1 8011) LMP: (test code = 11/25/2016 8021) SPECIMEN ADEQUACY: (NOTE) (test code = 63070) INTERPRETATION: (test NO EPITHELIAL code = 59299) ABNORMALITY SEE BELOW OFFSET PRESS OPERATOR: MELODY Og (ASCP) (test code = 8101) LOCATION: (test code (NOTE) = 31921) CPT: (test code = (NOTE) 8140) HPV HIGH RISK WITH GENOTYPE, [id number] 00:00:00 Test Item Value Reference Range Interpretation Comments HPV HIGH RISK INTERP (test code = NEGATIVE 51725) HPV 16 (test code = 52915) NEGATIVE HPV 18 (test code = 11013) NEGATIVE HPV, HR, OTHER GENOTYPES (test code NEGATIVE = 15143) HPV HIGH RISK WITH GENOTYPE, [id number] 00:00:00 Test Item Value Reference Range Interpretation Comments HPV HIGH RISK INTERP (test code = NEGATIVE 68025) HPV 16 (test code = 63412) NEGATIVE HPV 18 (test code = 40471) NEGATIVE HPV, HR, OTHER GENOTYPES (test code NEGATIVE = 05689) PAP TEST, THINPREP, [id number] 00:00:00 Test Item Value Reference Range Interpretation Comments SOURCE: (test code = Cervical/Endocervical 8001) SLIDES: (test code = 1 8011) LMP: (test code = 11/25/2016 8021) SPECIMEN ADEQUACY: (NOTE) (test code = 67552) INTERPRETATION: (test NO EPITHELIAL code = 59454) ABNORMALITY SEE BELOW OFFSET PRESS OPERATOR: MELODY Og (ASCP) (test code = 8101) LOCATION: (test code (NOTE) = 91841) CPT: (test code = (NOTE) 8140) HPV HIGH RISK WITH GENOTYPE, [id number] 00:00:00 Test Item Value Reference Range Interpretation Comments HPV HIGH RISK INTERP (test code = NEGATIVE 69558) HPV 16 (test code = 45234) NEGATIVE HPV 18 (test code = 84656) NEGATIVE HPV, HR, OTHER GENOTYPES (test code NEGATIVE = 87798) CHLAMYDIA, AMPLIFIED, [id number] 00:00:00 Test Item Value Reference Range Interpretation Comments CHLAMYDIA, TMA (test code = 26135) NEGATIVE CHLAMYDIA, AMPLIFIED, [id number] 00:00:00 Test Item Value Reference Range Interpretation Comments CHLAMYDIA, TMA (test code = 24406) NEGATIVE GC, AMPLIFIED, [id number] 00:00:00 Test Item Value Reference Range Interpretation Comments GONORRHEA, TMA (test code = 83483) NEGATIVE GC, AMPLIFIED, [id number] 00:00:00 Test Item Value Reference Range Interpretation Comments GONORRHEA, TMA (test code = 96224) NEGATIVE CHLAMYDIA, AMPLIFIED, [id number] 00:00:00 Test Item Value Reference Range Interpretation Comments CHLAMYDIA, TMA (test code = 75513) NEGATIVE CHLAMYDIA, AMPLIFIED, [id number] 00:00:00 Test Item Value Reference Range Interpretation Comments CHLAMYDIA, TMA (test code = 90009) NEGATIVE GC, AMPLIFIED, [id number] 00:00:00 Test Item Value Reference Range Interpretation Comments GONORRHEA, TMA (test code = 13616) NEGATIVE GC, AMPLIFIED, [id number] 00:00:00 Test Item Value Reference Range Interpretation Comments GONORRHEA, TMA (test code = 21015) NEGATIVE CHLAMYDIA, AMPLIFIED, [id number] 00:00:00 Test Item Value Reference Range Interpretation Comments CHLAMYDIA, TMA (test code = 17317) NEGATIVE CHLAMYDIA, AMPLIFIED, [id number] 00:00:00 Test Item Value Reference Range Interpretation Comments CHLAMYDIA, TMA (test code = 31731) NEGATIVE GC, AMPLIFIED, [id number] 00:00:00 Test Item Value Reference Range Interpretation Comments GONORRHEA, TMA (test code = 55609) NEGATIVE GC, AMPLIFIED, [id number] 00:00:00 Test Item Value Reference Range Interpretation Comments GONORRHEA, TMA (test code = 63351) NEGATIVE CHLAMYDIA, AMPLIFIED, [id number] 00:00:00 Test Item Value Reference Range Interpretation Comments CHLAMYDIA, TMA (test code = 67496) NEGATIVE GC, AMPLIFIED, [id number] 00:00:00 Test Item Value Reference Range Interpretation Comments GONORRHEA, TMA (test code = 31103) NEGATIVE ACUTE HEPATITIS [id number] 00:00:00 Test Item Value Reference Range Interpretation Comments HEPATITIS A IgM (test code = NON-REACTIVE 30316) HEPATITIS B CORE IgM (test code NON-REACTIVE = 4644) HEPATITIS B SURF AG (test code = NON-REACTIVE 2739) HEPATITIS C ANTIBODY (test code NON-REACTIVE = 4675) INTERPRETATION HEPATITIS A: (NOTE) (test code = 2552) INTERPRETATION HEPATITIS B: (NOTE) (test code = 29820) INTERPRETATION HEPATITIS C: (NOTE) (test code = 58396) ACUTE HEPATITIS [id number] 00:00:00 Test Item Value Reference Range Interpretation Comments HEPATITIS A IgM (test code = NON-REACTIVE 95139) HEPATITIS B CORE IgM (test code NON-REACTIVE = 4644) HEPATITIS B SURF AG (test code = NON-REACTIVE 2739) HEPATITIS C ANTIBODY (test code NON-REACTIVE = 4675) INTERPRETATION HEPATITIS A: (NOTE) (test code = 2552) INTERPRETATION HEPATITIS B: (NOTE) (test code = 80691) INTERPRETATION HEPATITIS C: (NOTE) (test code = 29420) HIV AB/AG COMBO RFLX [id number] 00:00:00 Test Item Value Reference Range Interpretation Comments HIV 1/2 4TH GEN, RFLX CONF (test NON-REACTIVE code = 3514) HIV AB/AG COMBO RFLX [id number] 00:00:00 Test Item Value Reference Range Interpretation Comments HIV 1/2 4TH GEN, RFLX CONF (test NON-REACTIVE code = 3514) [id number] 00:00:00 Test Item Value Reference Range Interpretation Comments RPR RESULT (test code = NON-REACTIVE 3501) RPR TITER (test code = 3500) NOT INDIC. TITER [id number] 00:00:00 Test Item Value Reference Range Interpretation Comments RPR RESULT (test code = NON-REACTIVE 3501) RPR TITER (test code = 3500) NOT INDIC. TITER [id number] 00:00:00 Test Item Value Reference Range Interpretation Comments RPR RESULT (test code = NON-REACTIVE 3501) RPR TITER (test code = 3500) NOT INDIC. TITER ACUTE HEPATITIS [id number] 00:00:00 Test Item Value Reference Range Interpretation Comments HEPATITIS A IgM (test code = NON-REACTIVE 69817) HEPATITIS B CORE IgM (test code NON-REACTIVE = 4644) HEPATITIS B SURF AG (test code = NON-REACTIVE 2739) HEPATITIS C ANTIBODY (test code NON-REACTIVE = 4675) INTERPRETATION HEPATITIS A: (NOTE) (test code = 2552) INTERPRETATION HEPATITIS B: (NOTE) (test code = 54493) INTERPRETATION HEPATITIS C: (NOTE) (test code = 39933) ACUTE HEPATITIS [id number] 00:00:00 Test Item Value Reference Range Interpretation Comments HEPATITIS A IgM (test code = NON-REACTIVE 58654) HEPATITIS B CORE IgM (test code NON-REACTIVE = 4644) HEPATITIS B SURF AG (test code = NON-REACTIVE 2739) HEPATITIS C ANTIBODY (test code NON-REACTIVE = 4675) INTERPRETATION HEPATITIS A: (NOTE) (test code = 2552) INTERPRETATION HEPATITIS B: (NOTE) (test code = 53530) INTERPRETATION HEPATITIS C: (NOTE) (test code = 37447) HIV AB/AG COMBO RFLX [id number] 00:00:00 Test Item Value Reference Range Interpretation Comments HIV 1/2 4TH GEN, RFLX CONF (test NON-REACTIVE code = 3514) HIV AB/AG COMBO RFLX [id number] 00:00:00 Test Item Value Reference Range Interpretation Comments HIV 1/2 4TH GEN, RFLX CONF (test NON-REACTIVE code = 3514) [id number] 00:00:00 Test Item Value Reference Range Interpretation Comments RPR RESULT (test code = NON-REACTIVE 3501) RPR TITER (test code = 3500) NOT INDIC. TITER [id number] 00:00:00 Test Item Value Reference Range Interpretation Comments RPR RESULT (test code = NON-REACTIVE 3501) RPR TITER (test code = 3500) NOT INDIC. TITER [id number] 00:00:00 Test Item Value Reference Range Interpretation Comments RPR RESULT (test code = NON-REACTIVE 3501) RPR TITER (test code = 3500) NOT INDIC. TITER ACUTE HEPATITIS [id number] 00:00:00 Test Item Value Reference Range Interpretation Comments HEPATITIS A IgM (test code = NON-REACTIVE 60822) HEPATITIS B CORE IgM (test code NON-REACTIVE = 4644) HEPATITIS B SURF AG (test code = NON-REACTIVE 2739) HEPATITIS C ANTIBODY (test code NON-REACTIVE = 4675) INTERPRETATION HEPATITIS A: (NOTE) (test code = 2552) INTERPRETATION HEPATITIS B: (NOTE) (test code = 69250) INTERPRETATION HEPATITIS C: (NOTE) (test code = 00046) ACUTE HEPATITIS [id number] 00:00:00 Test Item Value Reference Range Interpretation Comments HEPATITIS A IgM (test code = NON-REACTIVE 58777) HEPATITIS B CORE IgM (test code NON-REACTIVE = 4644) HEPATITIS B SURF AG (test code = NON-REACTIVE 2739) HEPATITIS C ANTIBODY (test code NON-REACTIVE = 4675) INTERPRETATION HEPATITIS A: (NOTE) (test code = 2552) INTERPRETATION HEPATITIS B: (NOTE) (test code = 71757) INTERPRETATION HEPATITIS C: (NOTE) (test code = 13212) HIV AB/AG COMBO RFLX [id number] 00:00:00 Test Item Value Reference Range Interpretation Comments HIV 1/2 4TH GEN, RFLX CONF (test NON-REACTIVE code = 3514) HIV AB/AG COMBO RFLX [id number] 00:00:00 Test Item Value Reference Range Interpretation Comments HIV 1/2 4TH GEN, RFLX CONF (test NON-REACTIVE code = 3514) [id number] 00:00:00 Test Item Value Reference Range Interpretation Comments RPR RESULT (test code = NON-REACTIVE 3501) RPR TITER (test code = 3500) NOT INDIC. TITER [id number] 00:00:00 Test Item Value Reference Range Interpretation Comments RPR RESULT (test code = NON-REACTIVE 3501) RPR TITER (test code = 3500) NOT INDIC. TITER [id number] 00:00:00 Test Item Value Reference Range Interpretation Comments RPR RESULT (test code = NON-REACTIVE 3501) RPR TITER (test code = 3500) NOT INDIC. TITER ACUTE HEPATITIS [id number] 00:00:00 Test Item Value Reference Range Interpretation Comments HEPATITIS A IgM (test code = NON-REACTIVE 06299) HEPATITIS B CORE IgM (test code NON-REACTIVE = 4644) HEPATITIS B SURF AG (test code = NON-REACTIVE 2739) HEPATITIS C ANTIBODY (test code NON-REACTIVE = 4675) INTERPRETATION HEPATITIS A: (NOTE) (test code = 2552) INTERPRETATION HEPATITIS B: (NOTE) (test code = 93456) INTERPRETATION HEPATITIS C: (NOTE) (test code = 98467) HIV AB/AG COMBO RFLX [id number] 00:00:00 Test Item Value Reference Range Interpretation Comments HIV 1/2 4TH GEN, RFLX CONF (test NON-REACTIVE code = 3514) [id number] 00:00:00 Test Item Value Reference Range Interpretation Comments RPR RESULT (test code = NON-REACTIVE 3501) RPR TITER (test code = 3500) NOT INDIC. TITER [id number] 00:00:00 Test Item Value Reference Range Interpretation Comments RPR RESULT (test code = NON-REACTIVE 3501) RPR TITER (test code = 3500) NOT INDIC. TITER"
[2023-02-11 13:22] LABS: Absolute Lymphocytes (CBC) 1.7 K/uL (0.7-4.9); Hematocrit 41.3 % (36.0-45.0); Lymphocytes % 11.1 % (15.3-44.8); RBC Red Blood Cell Count 4.86 M/uL (3.86-4.86)
[2023-02-11] MEDS ORDERED: NA CHLORIDE 0.9% 1,000 ML ONE (13:31)
[2023-02-11] MEDS ORDERED: ONDANSETRON 4 MG/2 ML VIAL ONE (13:31)
[2023-02-11 13:37] LABS: SARS-CoV-2 Antigen Rapid Res Negative (Negative)
[2023-02-11 13:54] LABS: Albumin 3.4 g/dL (3.4-5.0); Bilirubin Total 0.5 mg/dL (0.2-1.0); Potassium 3.3 mEq/L (3.5-5.1); Protein, Total 7.2 g/dL (6.4-8.2)
[2023-02-11 14:38] LABS: Specific Gravity < 1.005 (1.005-1.030); Urine Bilirubin NEGATIVE (Negative); Urine Blood Negative (Negative); Urine Clarity Clear (Clear); Urine Color Colorless (Yellow); Urine Glucose NEGATIVE (Negative); Urine Protein NEGATIVE (Negative); Urine Urobilinogen Normal (Normal)
[2023-02-11 14:52] LABS: Specific Gravity 1.005 (1.005-1.030)
--- NOTE | 2023-02-11 15:28 | RAD REPORT ---
EXAM DESCRIPTION: CTAbdomen Pelvis W Contrast - 02/11/2023 3:11 pm CLINICAL HISTORY: lower abdominal pain, nausea COMPARISON: Abdomen Pelvis W Contrast dated 06/24/2018 TECHNIQUE: CT of the abdomen and pelvis was performed. All CT scans are performed using dose optimization technique as appropriate and may include automated exposure control or mA/KV adjustment according to patient size. FINDINGS: Lower chest: No acute abnormality. Liver: No acute abnormality or suspicious lesions. Biliary: No biliary ductal dilatation. Stomach: No significant focal abnormality. Duodenum: No significant focal abnormality. Pancreas: No significant abnormality. Spleen: No significant abnormality. Adrenal: No suspicious lesions. Kidney/ureter: No hydronephrosis. No renal calculi. Normal appendix. Retroperitoneum: No retroperitoneal adenopathy. Vascular: No aneurysm. Bowel: No significant focal abnormality. Peritoneum: No ascites or free air. Small fat containing umbilical hernia. Bladder: Grossly unremarkable. Reproductive: No adnexal masses. Bones: No acute fracture. Other: n/a IMPRESSION: No acute intra-abdominal or pelvic finding.
--- NOTE | 2023-02-11 15:31 | EDPHYS ---
Physician Documentation [facility] Name: Milli Seymour Age: 37 yrs Sex: Female : 1985 Arrival Date: 02/11/2023 Time: 12:44 Bed 11 Private MD: ELIUD Physician Neri Sandhu HPI: 02/11 12:58 This 37 yrs old Female presents to ER via Ambulatory with complaints of Sore jmm Throat. 12:58 The patient presents with sore throat. Onset: The symptoms/episode began/occurred jmm acutely. Modifying factors: The symptoms are alleviated by nothing, the symptoms are aggravated by nothing. Associated signs and symptoms: Pertinent positives:. Is a 37-year-old female with no chronic medical conditions that presents emerged department with complaints of sore throat, abdominal pain nausea. Patient denies any diarrhea. States having chills. 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 - Social history:: Smoking status: Patient denies any tobacco usage or history of. ROS: 12:58 Constitutional: Positive for body aches, chills. jmm 12:58 ENT: Positive for sore throat. 12:58 Abdomen/GI: Positive for abdominal pain. 12:58 All other systems are negative. Exam: 12:58 Constitutional: This is a well developed, well nourished patient who is awake, alert, jmm and in no acute distress. Head/Face: atraumatic. Eyes: EOMI, no conjunctival erythema appreciated ENT: Moist Mucus Membranes Neck: Trachea midline, Supple Chest/axilla: Normal chest wall appearance and motion. Cardiovascular: Regular rate and rhythm. No edema appreciated Respiratory: Normal respirations, no respiratory distress appreciated 12:58 Back: Normal ROM Skin: General appearance color normal MS/ Extremity: Moves all extremities, no obvious deformities appreciated, no edema noted to the lower extremities Neuro: Awake and alert Psych: Behavior is normal, Mood is normal, Patient is cooperative and pleasant 12:58 Abdomen/GI: Inspection: abdomen appears normal, Bowel sounds: normal, Palpation: soft, moderate abdominal tenderness, in the suprapubic area. Vital Signs: 12:55 BP 118 / 82; Pulse 107; Resp 18; Temp 99.1(O); Pulse Ox 99% ; Weight 74.39 kg; Height 5 ap3 ft. 2 in. ; 14:52 BP 124 / 86; Pulse 87; Pulse Ox 98% on R/A; ap3 12:55 Body Mass Index 30.00 (74.39 kg, 157.48 cm) ap3 MDM: 12:58 Patient medically screened. [facility] 17:38 Data reviewed: vital signs, nurses notes. [facility] 17:38 I considered the following discharge prescriptions or medication management in the [facility] emergency department Medications were administered in the Emergency Department. See MAR. Counseling: I had a detailed discussion with the patient and/or guardian regarding: the historical points, exam findings, and any diagnostic results supporting the discharge/admit diagnosis, lab results, radiology results, the need for outpatient follow up, to return to the emergency department if symptoms worsen or persist or if there are any questions or concerns that arise at home. 02/11 13:00 Order name: CBC with Diff; Complete Time: 13:[address] [facility] 02/11 13:00 Order name: CMP; Complete Time: 14:[address] [facility] 02/11 13:00 Order name: Lipase; Complete Time: 14:[address] [facility] 02/11 13:00 Order name: Test, Urine; Complete Time: 15:[address] [facility] 02/11 13:00 Order name: Urinalysis w/ reflexes; Complete Time: 15:[address] [facility] 02/11 13:00 Order name: Strep [facility] 02/11 13:00 Order name: Influenza Screen (a \T\ B); Complete Time: 13:[address] [facility] 02/11 13:00 Order name: SARS RAPID; Complete Time: 13:[address] [facility] 02/11 13:00 Order name: [place] Screen Profile; Complete Time: 13:[address] [facility] 02/11 13:40 Order name: Throat Culture [facility] 02/11 13:00 Order name: CT Abd/Pelvis - IV Contrast Only; Complete Time: 15:[address] [facility] 02/11 13:00 Order name: IV Saline Lock; Complete Time: 13:[address] [facility] 02/11 13:00 Order name: Labs collected and sent; Complete Time: 13:[address] [facility] Administered Medications: 13:26 Drug: NS 0.9% IV 1000 ml Route: IV; Rate: 1 bolus; Site: right antecubital; ap3 13:26 Drug: Ondansetron IVP 4 mg Route: IVP; Site: right antecubital; ap3 14:48 Follow up: Response: No adverse reaction; Nausea is decreased ap3 Disposition Summary: 02/11/23 15:31 Discharge Ordered Location: Home [facility] Condition: Stable [facility] Diagnosis - Acute pharyngitis, unspecified [facility] Followup: [facility] - With: Private Physician - When: 2 - 3 days - Reason: Recheck today's complaints, Continuance of care, Re-evaluation by your physician Discharge Instructions: - Discharge Summary Sheet [facility] - Pharyngitis [facility] Forms: - Medication Reconciliation Form [facility] - Thank You Letter [facility] - Antibiotic Education [facility] - Prescription Opioid Use [facility] - Work release form eb Prescriptions: - cefdinir 300 mg Oral capsule - take 1 capsule by ORAL route 2 times per day for 10 days; 20 capsule; Refills: [facility] 0, Product Selection Permitted - ondansetron 4 mg Oral Tablet,disintegrating - take 1 tablet by ORAL route every 4 hours As needed; 20 tablet; Refills: 0, [facility] Product Selection Permitted Signatures: Dispatcher [employer] Neri Gallardo MD MD cha Mickail, Joel, PA PA jmm Prokisch, Amanda, RN RN ap3
--- NOTE | 2023-02-11 15:31 | ER ---
Nurse's Notes [facility] Name: Milli Seymour Age: 37 yrs Sex: Female : 1985 Arrival Date: 02/11/2023 Time: 12:44 Bed 11 Private MD: Diagnosis: Acute pharyngitis, unspecified Presentation: 02/11 12:55 Chief complaint: Patient states: she has been having a sore throat with nausea for ap3 approx 2 days. Coronavirus screen: At this time, the client does not indicate any symptoms associated with coronavirus-19. Ebola Screen: No symptoms or risks identified at this time. Initial Sepsis Screen: Does the patient meet any 2 criteria? HR > 90 bpm. Does the patient have a suspected source of infection? No. Patient's initial sepsis screen is negative. Risk Assessment: Do you want to hurt yourself or someone else? Patient reports no desire to harm self or others. Onset of symptoms was February 09, 2023. 12:55 Method Of Arrival: Ambulatory ap3 12:55 Acuity: YAEL 3 ap3 Triage Assessment: 12:57 General: Appears in no apparent distress. Behavior is calm, cooperative, appropriate ap3 for age. Pain: Complains of pain in throat Pain began 2-3 days ago. EENT: Reports pain when swallowing. Neuro: Level of Consciousness is awake, alert, obeys commands, Oriented to person, place, time, situation. Cardiovascular: Patient's skin is warm and dry. Respiratory: Airway is patent Respiratory effort is even, unlabored, Respiratory pattern is regular, symmetrical. GI: Reports nausea. 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 - Social history:: Smoking status: Patient denies any tobacco usage or history of. Screenin:58 [facility] ED Fall Risk Assessment (Adult) History of falling in the last 3 months, ap3 including since admission No falls in past 3 months (0 pts). Abuse screen: Denies threats or abuse. Nutritional screening: No deficits noted. Tuberculosis screening: No symptoms or risk factors identified. Assessment: 14:52 Reassessment: Patient and/or family updated on plan of care and expected duration. Pain ap3 level reassessed. Patient is alert, oriented x 3, equal unlabored respirations, skin warm/dry/pink. 15:41 EENT: Throat is pink with gag reflex present. ap3 15:41 Respiratory: ap3 Vital Signs: 12:55 BP 118 / 82; Pulse 107; Resp 18; Temp 99.1(O); Pulse Ox 99% ; Weight 74.39 kg; Height 5 ap3 ft. 2 in. ; 14:52 BP 124 / 86; Pulse 87; Pulse Ox 98% on R/A; ap3 12:55 Body Mass Index 30.00 (74.39 kg, 157.48 cm) ap3 ED Course: 12:47 Patient arrived in ED. ts1 12:50 Jacek Wagner PA is PHCP. jmm 12:50 Neri Sandhu MD is Attending Physician. jmm 12:55 Lucy Clark RN is Primary Nurse. ap3 12:57 Triage completed. ap3 12:58 Arm band placed on right wrist. ap3 12:58 Patient has correct armband on for positive identification. Bed in low position. Call ap3 light in reach. Side rails up X 1. Pulse ox on. NIBP on. Door closed. Noise minimized. 13:17 Initial lab(s) drawn, by ga, COVID swab sent to lab. Flu and/or RSV swab sent to lab. ap3 Strep swab sent to lab. Inserted saline lock: 20 gauge in right antecubital area, using aseptic technique. Blood collected. 14:00 Radiology exam delayed due to test not completed at this time. bq 15:13 CT Abd/Pelvis - IV Contrast Only In Process Unspecified. EDMS 15:41 No provider procedures requiring assistance completed. ap3 15:45 IV discontinued, intact, bleeding controlled, No redness/swelling at site. Pressure ap3 dressing applied. Administered Medications: 13:26 Drug: NS 0.9% IV 1000 ml Route: IV; Rate: 1 bolus; Site: right antecubital; ap3 13:26 Drug: Ondansetron IVP 4 mg Route: IVP; Site: right antecubital; ap3 14:48 Follow up: Response: No adverse reaction; Nausea is decreased ap3 Medication: 15:41 VIS not applicable for this client. ap3 Outcome: 15:31 Discharge ordered by . maldonado 15:45 Discharged to home ambulatory, with family. ap3 15:45 Condition: good 15:45 Discharge instructions given to patient, family, Instructed on discharge instructions, Demonstrated understanding of instructions, follow-up care, medications, Prescriptions given X 2. 15:45 Patient left the ED. ap3 Signatures: Dispatcher [employer] EDMS Jacek Wagner PA PA jmm Quilty, Betty bq Prokisch, Amanda, RN RN ap3 Sydnee Whipple PAS PAS ts1
[2023-02-11 15:50] VITALS: TEMP 99.1
[2023-02-11 15:52] VITALS: BP 124/86; O2SAT 98
== END 2023-02-11 15:45 | disposition home or self-care (01) ==
LOC: ER 12:44
DX: J02.9 Acute pharyngitis, unspecified (principal); R10.30 Lower abdominal pain, unspecified
CPT/HCPCS: 36415; 74177; 80053; 81003; 81025; 83690; 85025; 86308; 87070; 87081; 87804; 87811; 96374; 99284; J2405; J7030; Q9967

== ENCOUNTER 2023-05-10 17:08 | Emergency (ER) | payer SELFPAY ==
--- OUTSIDE RECORDS SUMMARY | 2023-05-10 17:13 | XMS REPORT | Continuity of Care Document ---
:1985 Author Organization [facility] t Address [address] [place] [address] Care Team Providers Name Role Phone PCP, PATIENT DOES NOT HAVE A Primary Care Physician Unavaila CATRACHO Siddiqui Attending Clinician Unavailable CATRACHO DUNBAR Attending Clinician Unavailable Pcp, Patient Does Not Have A Attending Clinician [phone] Doctor Unassigned, [place] Attending Clinician Unavailable TRUPTI SKINNER Attending Clinician [...] Active Univers ALLERGIE Class ity of S [place] [facility] Social History Social Habit Start Date Stop Date Quantity Comments Source Exposure to Not sure [facility] SARS-CoV-2 (event) Medica l Branch Alcohol intake 2021-11-18 2021-11-18 0 /d [facility] 00:00:00 00:00:00 Medical Branch Tobacco use and 2015-06-21 2015-06-21 Never used [facility] exposure 00:00:00 00:00:00 Medical Branch Sex Ass[birth year] At [birth year] [facility] 00:00:00 00:00:00 Medical Branch Smoking Status Start Date Stop Date Source Never smoker [facility] Branch Medications Ordered Filled Start Stop Current Ordering Indication Dosage Frequency Signature Comments Components Source Medication Medication Date Date Medication? Clinician (SIG) Name Name medroxyprog 2022-0 No 1mg/mL esterone 5-19 150 mg/mL 00:00: intramuscul 00 ar suspension Dose 2021-0 No Unknown 5-19 00:00: 00 Dose 2-0 No Unknown 5-19 00:00: 00 Dose 2-0 No Unknown 5-19 00:00: 00 Dose 2-0 No Unknown 5-19 00:00: 00 Dose 2-0 No Unknown 5-19 00:00: 00 Dose 2022-0 No Unknown 5-19 00:00: 00 Dose 2-0 [...] 2022-0 No Unknown 3-12 00:00: 00 Dose 2021-0 [...] 3-12 00:00: 00 Dose 2021-0 No Unknown 3-11 00:00: 00 Dose 2021-0 No Unknown 3-11 00:00: 00 Dose 2021-0 No Unknown 3-11 00:00: 00 Dose 2021-0 No Unknown 3-11 00:00: 00 Dose 2021-0 No Unknown 3-11 00:00: 00 Dose 2021-0 No Unknown 3-11 00:00: 00 Dose 2021-0 No Unknown 3-11 00:00: 00 Dose 2021-0 No Unknown 3-11 00:00: 00 ondansetron 2021-0 2021- No 4mg 4 mg, Slow Univers (ZOFRAN 11-19 IV Push, ity of (PF)) 07:00: 06:18 ONCE, 1 [place] injection 4 00 :00 dose, On Medi saeid mg 11/19/21 Branch at 0100, JEREMY morpHINE 2021- No 4mg 4 mg, Slow Un roger injection 4 11-19- IV Push, ity of mg 07:00: 06:19 ONCE, 1 [place] 00 :00 dose, On Medical 11/19/21 Branch at 0100, STAT iohexol 2021- No [id number] 120mL 120 mL, Univers (OMNIPAQUE 3-05 Intravenou it y of 350 06:55: 06:55 s, ONCE, 1 [place] BULK-150 00 :00 dose, On Medical mL) 11/19/21 Branch injection at 0100, 120 mL Routine sucralfate 2021-0 Yes [id number] 1g Take 1 Univers 1 gram 3-05 tablet by ity of tablet 00:00: mouth [place] 00 before Medical meals and Branch at bedtime. omeprazole 2021-0 Yes [id number] 20mg Take 1 Univers 20 mg 3-05 capsule by ity of capsule 00:00: mouth [place] 00 daily. Medical Branch traMADoL 2021-0 Yes [id number] 50mg Take 1 Univers (ULTRAM) 50 3-05 tablet by ity of mg tablet 00:00: mouth [place] 00 every 6 Medical (six) Branch hours as needed for Pain (scale 7-10). Indication s: acute pain sucralfate 2021-0 Yes [id number] 1g Take 1 Univers 1 gram 3-05 tablet by ity of tablet 00:00: mouth [place] 00 before Medical meals and Branch at bedtime. omeprazole 2021-0 Yes [id number] 20mg Take 1 Univers 20 mg 3-05 capsule by ity of capsule 00:00: mouth [place] 00 daily. Medical Branch traMADoL 2021-0 Yes [id number] 50mg Take 1 Univers (ULTRAM) 50 3-05 tablet by ity of mg tablet 00:00: mouth [place] 00 every 6 Medical (six) Branch hours as needed for Pain (scale 7-10). Indication s: acute pain sucralfate 2021-0 Yes [id number] 1g Take 1 Univers 1 gram 3-05 tablet by ity of tablet 00:00: mouth [place] 00 before Medical meals and Branch at bedtime. omeprazole 2021-0 Yes [id number] 20mg Take 1 Univers 20 mg 3-05 [...] mg/mL 00:00: intramuscul 00 ar suspension Dose 0 No Unknown 5-07 00:00: 00 Dose 2020-0 No Unknown 5-07 00:00: 00 medroxyprog 2020-0 No 1mg/mL esterone 5-07 150 mg/mL 00:00: intramuscul 00 ar suspension medroxyprog 2020-0 No 1mg/mL esterone 4-30 150 mg/mL 00:00: intramuscul 00 ar syringe Dose 0 No Unknown 4-30 00:00: 00 Dose 2020-0 No Unknown 4-30 00:00: 00 medroxyprog 2020-0 No 1mg/mL esterone 4-30 150 mg/mL 00:00: intramuscul 00 ar syringe ketorolac 2019- No 30mg 30 mg, Unive rs (TORADOL) 10-28 Slow IV ity of injection 10:45: 09:34 Push, [place] 30 mg 00 :00 ONCE, 1 Medical dose, Tue Branch 10/28/19 at 0445, JEREMY
Fa culty member approving Restricted medication : LOREN HWANG traMADol 2020-0 Yes [id number] 50mg Take 1 Un roger (ULTRAM) 50 2-11 tablet by ity of mg tablet 00:00: mouth 00 every 6 Medical (six) Branch hours as needed for Pain (scale 7-10). naproxen 2020-0 Yes [id number] 550mg Take 1 U nivers sodium 550 2-11 tablet by ity of mg tablet 00:00: mouth (two) Medical times Branch daily with meals. traMADol 2020-0 Yes [id number] 50mg Take 1 Un roger (ULTRAM) 50 2-11 tablet by ity of mg tablet 00:00: mouth [place] 00 every 6 Medical (six) Branch hours as needed for Pain (scale 7-10). naproxen 2020-0 Yes [id number] 550mg Take 1 U nivers sodium 550 2-11 tablet by ity of mg tablet 00:00: mouth (two) Medical times Branch daily with meals. naproxen 2020-0 Yes [id number] 550mg Take 1 U nivers sodium 550 2-11 tablet by ity of mg tablet 00:00: mouth (two) Medical times Branch daily with meals. naproxen Yes [id number] 550mg Take 1 U nivers sodium 550 2-11 tablet by ity of mg tablet 00:00: mouth 2 (two) Medical times Branch daily with meals. naproxen Yes [id number] 550mg Take 1 U nivers sodium 550 2-11 tablet by ity of mg tablet 00:00: mouth 2 (two) Medical times Branch daily with meals. traMADol 2021- No [id number] 50mg Take 1 U nivers (ULTRAM) 50 2-11 03-05 tablet by it y of mg tablet 00:00: 00:00 mouth [place] 00 :00 every 6 Medical (six) Branch hours as needed for Pain (scale 7-10). Cipro 500 2016-0 No 1mg mg tablet - 00:00: 00 Cipro 500 2016-0 No 1mg mg tablet 01-06 00:00: 00 Cipro 500 2016-0 No 1mg mg tablet 01-06 00:00: 00 Cipro 500 2016-0 No 1mg mg tablet 01-06 00:00: 00 medroxyPROG 2014-09 Yes [id number] 150mg Univers ESTERone 0-05 ity of (DEPO-PROVE 20:45: [place] RA) 00 Medical injection Branch 150 mg medroxyPROG 2014-09 Yes [id number] 150mg Univers ESTERone 0-05 ity of (DEPO-PROVE 20:45: [place] RA) 00 Medical injection Branch 150 mg medroxyPROG 2014-09 Yes [id number] 150mg Univers ESTERone 0-05 ity of (DEPO-PROVE 20:45: [place] RA) 00 Medical injection Branch 150 mg medroxyPROG 2014-09 Yes [id number] 150mg Univers ESTERone 0-05 ity of (DEPO-PROVE 20:45: [place] RA) 00 Medical injection Branch 150 mg medroxyPROG 2014-09 Yes [id number] 150mg Univers ESTERone 0-05 ity of (DEPO-PROVE 20:45: [place] RA) 00 Medical injection Branch 150 mg Immunizations Ordered Filled Immunization Date Status Comments [facility] e Immunization Name Name HPV9 2022-03-16 Completed 00:00:00 HPV9 2022-03-16 Completed 00:00:00 HPV9 2022-03-16 Completed 00:00:00 HPV9 2022-03-16 Completed 00:00:00 HPV9 2022-02-02 Completed 00:00:00 HPV9 2022-02-02 Completed 00:00:00 HPV9 2022-02-02 Completed 00:00:00 HPV9 2022-02-02 Completed 00:00:00 TDAP 2015-06-21 Completed University of 00:00:00 [place] [facility] [place] Tdap 2015-06-21 Completed University of 00:00:00 [place] [facility] TDAP 2015-06-21 Completed University of 00:00:00 [place] [facility] TDAP 2015-06-21 Completed University of 00:00:00 [facility] Branch TDAP 2015-06-21 Completed University of 00:00:00 [facility] Vital Signs Vital Name Observation Time Observation Value Comments Source Systolic blood 2021-11-19 07:38:00 114 mm[Hg] Univer sity of pressure [facility] Diastolic blood 2021-11-19 07:38:00 66 mm[Hg] Unive rsity of [facility] Heart rate 2021-11-19 07:38:00 77 /min [facility] Body temperature 2021-11-19 07:38:00 [facility].67 [facility] Respiratory rate 2021-11-19 07:38:00 18 /min [facility] Oxygen saturation in 2021-11-19 07:38:00 97 /min University of Arterial blood by [place] [employer] [facility] Pulse oximetry Branch Body weight 2021-11-19 05:17:00 74.844 kg [facility] BMI 2021-11-19 05:17:00 30.18 kg/m2 [facility] Systolic blood 2019-10-28 09:00:00 113 mm[Hg] Univer sity of pressure [facility] Diastolic blood 2019-10-28 09:00:00 81 mm[Hg] Unive rsity of pressure [facility] Heart rate 2019-10-28 09:00:00 77 /min [facility] Respiratory rate 2019-10-28 09:00:00 18 /min [facility] Oxygen saturation in 2019-10-28 09:00:00 97 /min University of Arterial blood by [facility] [place] [facility] Pulse oximetry Branch Body height 2019-10-28 08:57:00 157.5 cm [facility] Body weight 2019-10-28 08:57:00 58.514 kg [facility] BMI 2019-10-28 08:57:00 23.59 kg/m2 [facility] BP Systolic 2022-08-15 15:47:00 106 mm[Hg] [...] ABDOMEN PELVIS W 2021-11-19 06:59:11 Trupti Skinner [facility] POCT TEST 2021-11-19 06:20:00 Trupti Skinner [facility] US GALL BLADDER 2021-11-19 06:10:44 Trupti Skinner [facility] COVID-19 (ID NOW RAPID 2021-11-19 05:47:00 Trupti Skinner [facility] TESTING) Medical Branch LIPASE 2021-11-19 05:46:00 Trupti Skinner [facility] COMP. METABOLIC PANEL 2021-11-19 05:46:00 Trupti Skinner [facility] ([id number]) Medical [place] CBC WITH DIFF 2021-11-19 05:46:00 Trupti Skinner [facility] URINALYSIS 2021-11-19 05:46:00 Trupti Skinner [facility] CONSENT/REFUSAL FOR 2021-11-19 05:18:04 Doctor Unassigned, No Un [facility] DIAGNOSIS AND TREATMENT Name Medical Branch DISCLOSURE AND CONSENT, 2021-10-18 06:01:00 Doctor Unassigned, N o [facility] MEDICAL AND SURGICAL Name Medical [facility] PROCEDURES LIPASE 2019-10-28 09:01:00 Loren Hwang [facility] COMP. METABOLIC PANEL 2019-10-28 09:01:00 Loren Hwang [facility] ([id number]) Medical [place] CBC WITH DIFFERENTIAL 2019-10-28 09:01:00 [facility] 2019-10-28 09:01:00 Loren Hwang [facility] POCT TEST 2019-10-28 09:00:00 Loren Hwang [facility] NOTICE OF PRIVACY 2019-10-28 08:46:30 Doctor [facility]assigned, No [facility] CONSENT/REFUSAL FOR 2019-10-28 08:46:14 Doctor Unassigned, No [facility] Plan of Care Planned Activity Planned Date Details Comments Source Goal Plan of Care Note [code = 01871-3] Goal Plan of Care Note [code = 50906-0] Goal Plan of Care Note [code = 15931-4] Goal Plan of Care Note [code = 78610-8] Goal Plan of Care Note [code = 94187-6] Goal Plan of Care Note [code = 56502-7] Goal Plan of Care Note [code = 06239-0] Goal Plan of Care Note [code = 32197-0] Goal Plan of Care Note [code = 01179-6] Goal Plan of Care Note [code = 57020-0] Goal Plan of Care Note [code = 12453-2] Goal Plan of Care Note [code = 15439-1] Goal Plan of Care Note [code = 58833-9] Goal Plan of Care Note [code = 52024-8] Goal Plan of Care Note [code = 46078-6] Goal Plan of Care Note [code = 72001-8] Goal Plan of Care Note [code = 21189-2] Goal Plan of Care Note [code = 01701-2] Goal Plan of Care Note [code = 12327-3] Goal Plan of Care Note [code = 18862-3] Goal Plan of Care Note [code = 22139-8] Goal Plan of Care Note [code = 42368-9] Goal Plan of Care Note [code = 38987-8] Goal Plan of Care Note [code = 43843-6] Goal Plan of Care Note [code = 77877-0] Goal Plan of Care Note [code = 61960-5] Goal Plan of Care Note [code = 06510-4] Goal Plan of Care Note [code = 08665-4] Goal Plan of Care Note [code = 16414-3] Goal Plan of Care Note [code = 96780-2] Goal Plan of Care Note [code = 27961-8] Goal Plan of Care Note [code = 23358-7] Goal Plan of Care Note [code = 24101-2] Goal Plan of Care Note [code = 94700-7] Goal Plan of Care Note [code = 83019-1] Goal Plan of Care Note [code = 35662-5] Goal Plan of Care Note [code = 87321-7] Goal Plan of Care Note [code = 62621-6] Goal Plan of Care Note [code = 61612-8] Goal Plan of Care Note [code = 50678-9] Goal Plan of Care Note [code = 52551-0] Goal Plan of Care Note [code = 98724-3] Goal Plan of Care Note [code = 50423-5] Goal Plan of Care Note [code = 82476-4] Goal Plan of Care Note [code = 87876-5] Goal Plan of Care Note [code = 70952-5] Goal Plan of Care Note [code = 36841-5] Goal Plan of Care Note [code = 44066-4] Goal Plan of Care Note [code = 07658-9] Goal Plan of Care Note [code = 92332-9] Goal Plan of Care Note [code = 69740-9] Goal Plan of Care Note [code = 44500-7] Goal Plan of Care Note [code = 13382-2] Goal Plan of Care Note [code = 21675-1] Goal Plan of Care Note [code = 04327-7] Goal Plan of Care Note [code = 77544-3] Goal Plan of Care Note [code = 95909-3] Goal Plan of Care Note [code = 74686-0] Goal Plan of Care Note [code = 56065-7] Goal Plan of Care Note [code = 86092-1] Goal Plan of Care Note [code = 43058-4] Goal Plan of Care Note [code = 67554-0] Goal Plan of Care Note [code = 41996-0] Goal Plan of Care Note [code = 62536-1] Goal Plan of Care Note [code = 41532-6] Goal Plan of Care Note [code = 51145-3] Goal Plan of Care Note [code = 14208-4] Goal Plan of Care Note [code = 22868-9] Goal Plan of Care Note [code = 12145-6] Goal Plan of Care Note [code = 39665-7] Goal Plan of Care Note [code = 13405-0] Goal Plan of Care Note [code = 77358-0] Goal Plan of Care Note [code = 78369-6] Goal Plan of Care Note [code = 10984-8] Goal Plan of Care Note [code = 31710-5] Goal Plan of Care Note [code = 39860-3] Goal Plan of Care Note [code = 65879-4] Goal Plan of Care Note [code = 33056-7] Goal Plan of Care Note [code = 72378-0] Goal Plan of Care Note [code = 49618-0] Goal Plan of Care Note [code = 52156-4] Goal Plan of Care Note [code = 33661-9] Goal Plan of Care Note [code = 06739-4] Goal Plan of Care Note [code = 88178-9] Goal Plan of Care Note [code = 76848-5] Goal Plan of Care Note [code = 56815-6] Goal Plan of Care Note [code = 16189-4] Goal Plan of Care Note [code = 32394-1] Goal Plan of Care Note [code = 04746-4] Goal Plan of Care Note [code = 93688-8] Goal Plan of Care Note [code = 75332-6] Goal Plan of Care Note [code = 35571-5] Encounters Start End Encounter Admission Attending Care Care Encounter Source Date/Time Date/Time Type Type Clinicians Facility Department ID 2023-04-04 2023-04-04 Outpatient SFA SFA [id number] [place] 10:13:20 10:13:20 0719 [facility] 2023-03-12 2023-03-12 Outpatient SFA SFA [id number] 023 [place] 16:20:39 16:20:39 0626 F Rosales 2023-02-28 2023-02-28 Outpatient SFA SFA [id number] 023 [place] 13:27:45 13:27:45 0614 F Rosales 2022-10-20 2022-10-20 Outpatient SFA SFA [id number] 023 [place] 15:25:32 15:25:32 0203 F Rosales 2022-08-18 2022-08-18 Outpatient SFA SFA [id number] 022 [place] 15:22:36 15:22:36 1202 F Rosales 2022-08-15 2022-08-15 Outpatient SFA SFA [id number] 022 [place] 15:36:23 15:36:23 1129 F Rosales 2022-08-15 2022-08-15 Outpatient [id number]-b 00:00:00 00:00:00 Visit a381-32jd 634-41ba-a -p53k-6y8 84f-1c8c35 d504mx7br 0fe4ab 2022-07-24 2022-07-24 Outpatient SFA SFA [id number] 022 [place] 17:07:55 17:07:55 1107 F Rosales 2022-07-24 2022-07-24 Outpatient [id number] 00:00:00 00:00:00 Visit 6v63-5898 z31-8279-r -m157-987 013-241ee7 [id number] 22faa3 2022-05-04 2022-05-04 Outpatient [id number] t1v20c-c 00:00:00 00:00:00 Visit e4o8-806b 3z9-138u-3 -3b7v-5k9 n7l-4z06x9 2h46zl084 8kj520 2022-03-16 2022-03-16 Outpatient [id number] [id number]-x 00:00:00 00:00:00 Visit dff7-428f ff7-428f-b -e39e-87v 90b-04a86b 26ygj7w5y de7a5e 2021-11-25 2021-11-25 Outpatient R CATRACHO DUNBAR [facility] [id number] Univers 13:00:00 13:00:00 CATRACHO DUNBAR [facility] 2021-11-23 2021-11-23 Letter [facility], [facility] [id number] Univers 00:00:00 00:00:00 (Out) Patient [place] 350.1.13.10 i ty of Does Not [facility] 4.2.7.2.686 Cornelius as Have A PROFESSIO [phone] Ar dical NAL 044 [facility] 2021-11-23 2021-11-23 Patient Doctor [facility] [id number] Univers 00:00:00 00:00:00 Secure Msg Unassigned, [place] 350.1.13.10 ity of [place] 4[place].2.686 [place] PROFESS[place] [phone] Ar dical NAL 044 [facility] 2021-11-18 2021-11-19 Emergency X ELIZABETH, [facility] ERT [id number] Univers 23:18:00 02:01:00 TRUPTI ity of [place] [facility] 2021-11-18 2021-11-19 Emergency Skinner, TRAUMA [id number] Univers 23:18:00 02:01:00 Trupti [facility] 350.1.13.10 [place] [phone] [facility] 014 [place] 2021-10-18 2021-10-18 Orders Doctor HUMBERTO [id number] Univers 00:00:00 00:00:00 Only Unassigned, CHERIE 350.1.13.10 ity of [place] [facility] 4.2.7.2.686 Cornel[place] as [phone] [facility] 009 Branch 2020-04-23 2020-04-23 Outpatient R [facility] [id number] Univers 16:20:00 16:20:00 ity of [place] [facility] 2019-10-28 2019-10-28 Emergency Michi, [facility] [id number] Univers 02:51:21 03:48:00 Loren S Te[place] 350.1.13.10 ity of [place] 4[place].2.686 [place] [phone] [place] [id number] [place] Results Test Description Test Time Test Comments Results Result Comments Source POCT TEST 2021-11-19 06:20:00 Test Item Value Reference Range Interpretation Comme nts POCT PREG (test code = 1605) Negative On board controls acceptable with C Line (test code = 3574) Yes POCT PREG LOT # (test code = 3575) [id number] POCT PREG TEST DATE (test code = 3576) 11/14/22 Lab Interpretation (test code = 69888-4) Normal [facility] 06:09:09 Test Item Value Reference Range Interpretation Comments LIPASE (test code = 8454347829) 129 U/L 0-220 Lab Interpretation (test code = Normal 24955-8) [facility] (93660)2021-11-19 06:09:08 Test Item Value Reference Range Interpretation Comments NA (test code = 138 mmol/L 135-145 2230155636) K (test code = 4.1 mmol/L 3.5-5.0 4516208747) CL (test code = 107 mmol/L 98-108 4719803585) CO2 TOTAL (test code 24 mmol/L 23-31 = 2276681159) AGAP (test code = 2-16 1162850224) BUN (test code = 10 mg/dL 7-23 6584746830) GLUCOSE (test code = 93 mg/dL 70-110 2721079067) CREATININE (test code 0.69 mg/dL 0.50-1.04 = 9896235673) TOTAL BILI (test code 0.6 mg/dL 0.1-1.1 = 9726358779) CALCIUM (test code = 8.9 mg/dL 8.6-10.6 7393258647) T PROTEIN (test code 7.8 g/dL 6.3-8.2 = 6020381009) ALBUMIN (test code = 4.6 g/dL 3.5-5.0 7400878906) ALK PHOS (test code = 100 U/L 34-122 2556090362) ALTv (test code = 27 U/L 5-35 1742-6) AST(SGOT) (test code 23 U/L 13-40 = 2442615777) eGFR (test code = mL/min/1.73m2 2523248359) MATEO (test code = MATEO) Association of [...] or urine or abnormalities in imaging tests). [facility] WITH [id number] 05:55:42 Test Item Value Reference Range Interpretation Comments WBC (test code = See_Comment [Automated 5490-2) message] The sy stem which generated this result transmitted reference range : 4.30 - 11.10 10*3/?L. The reference range was not used to interpret this result as normal/abnormal . RBC (test code = See_Comment [Automated 915-8) message] The sy stem which generated this [...] RDW-SD (test code = 39.4 fL 39.0-49.9 67314-2) RDW-CV (test code = 12.6 % 12.0-15.5 788-0) PLT (test code = See_Comment H [Automated 777-3) message] The sy stem which generated this result transmitted reference range : 166 - 358 10*3/ ?L. The reference r rachana was not used to interpret this result as normal/abnormal . MPV (test code = 9.8 fL 9.5-12.9 64267-5) NRBC/100 WBC (test See_Comment [Automat ed code = 3383192483) message] The system which generated this result transmitted reference range : 0.0 - 10.0 /100 WBCs. The refer ence range was not u sed to interpret th is result as normal/abnormal . NRBC x10^3 (test code <0.01 See_Comment [Auto mated = 9612452479) message] The s ystem which generated this result transmitted reference range : 10*3/?L. The reference range was not used to interpret this result as normal/abnormal . GRAN MAT (NEUT) % 54.7 % (test code = 770-8) IMM GRAN % (test code 0.30 % = 8762284981) LYMPH % (test code = 33.5 % 736-9) MONO % (test code = 7.4 % 5905-5) EOS % (test code = 3.5 % 713-8) BASO % (test code = 0.6 % 706-2) GRAN MAT x10^3(ANC) 5.24 10*3/uL 1.88-7.09 (test code = 3628111046) IMM GRAN x10^3 (test 0.03 10*3/uL 0.00-0.06 code = 6144750528) LYMPH x10^3 (test code 3.22 10*3/uL 1.32-3.29 = 731-0) MONO x10^3 (test code 0.71 10*3/uL 0.33-0.92 = 742-7) EOS x10^3 (test code = 0.34 10*3/uL 0.03-0.39 711-2) BASO x10^3 (test code 0.06 10*3/uL 0.01-0.07 = 704-7) Lab Interpretation Abnormal (test code = 40116-1) [facility] ([facility]OVID-19) by RT-PCR (HIGH RISK) 2020-10-13 00:00:00 Test Item Value Reference Range Interpretation Comments SARS-CoV-2 INTERPRETATION (test NEGATIVE code = 66114) SOURCE (test code = 48631) NOT SPECIFIED SARS-CoV-2 (COVID-19) by RT-PCR (HIGH RISK)2020-10-13 00:00:00 Test Item Value Reference Range Interpretation Comments SARS-CoV-2 INTERPRETATION (test NEGATIVE code = 85302) SOURCE (test code = 92299) NOT SPECIFIED SARS-CoV-2 (COVID-19) by RT-PCR (HIGH RISK)2020-10-13 00:00:00 Test Item Value Reference Range Interpretation Comments SARS-CoV-2 INTERPRETATION (test NEGATIVE code = 44016) SOURCE (test code = 74571) NOT SPECIFIED SARS-CoV-2 (COVID-19) by RT-PCR (HIGH RISK)2020-10-13 00:00:00 Test Item Value Reference Range Interpretation Comments SARS-CoV-2 INTERPRETATION (test NEGATIVE code = 00287) SOURCE (test code = 74336) NOT SPECIFIED SARS-CoV-2 (COVID-19) by RT-PCR (HIGH RISK)2020-10-13 00:00:00 Test Item Value Reference Range Interpretation Comments SARS-CoV-2 INTERPRETATION (test NEGATIVE code = 81032) SOURCE (test code = 38873) NOT SPECIFIED SARS-CoV-2 (COVID-19) by RT-PCR (HIGH RISK)2020-10-13 00:00:00 Test Item Value Reference Range Interpretation Comments SARS-CoV-2 INTERPRETATION (test NEGATIVE code = 68174) SOURCE (test code = 00980) NOT SPECIFIED SARS-CoV-2 (COVID-19) by RT-PCR (HIGH RISK)2020-10-13 00:00:00 Test Item Value Reference Range Interpretation Comments SARS-CoV-2 INTERPRETATION (test NEGATIVE code = 61119) SOURCE (test code = 53244) NOT SPECIFIED SARS-CoV-2 (COVID-19) by RT-PCR (HIGH RISK)2020-04-02 00:00:00 Test Item Value Reference Range Interpretation Comments SARS-CoV-2 INTERPRETATION (test NEGATIVE code = 04482) SOURCE (test code = 30903) NOT SPECIFIED SARS-CoV-2 (COVID-19) by RT-PCR (HIGH RISK)2020-04-02 00:00:00 Test Item Value Reference Range Interpretation Comments SARS-CoV-2 INTERPRETATION (test NEGATIVE code = 73063) SOURCE (test code = 49516) NOT SPECIFIED SARS-CoV-2 (COVID-19) by RT-PCR (HIGH RISK)2020-04-02 00:00:00 Test Item Value Reference Range Interpretation Comments SARS-CoV-2 INTERPRETATION (test NEGATIVE code = 42880) SOURCE (test code = 10700) NOT SPECIFIED SARS-CoV-2 (COVID-19) by RT-PCR (HIGH RISK)2020-04-02 00:00:00 Test Item Value Reference Range Interpretation Comments SARS-CoV-2 INTERPRETATION (test NEGATIVE code = 99854) SOURCE (test code = 97234) NOT SPECIFIED SARS-CoV-2 (COVID-19) by RT-PCR (HIGH RISK)2020-04-02 00:00:00 Test Item Value Reference Range Interpretation Comments SARS-CoV-2 INTERPRETATION (test NEGATIVE code = [address]878) SOURCE (test code = 27104) NOT SPECIFIED SARS-CoV-2 (COVID-19) by RT-PCR (HIGH RISK)2020-04-02 00:00:00 Test Item Value Reference Range Interpretation Comments SARS-CoV-2 INTERPRETATION (test NEGATIVE code = 27790) SOURCE (test code = 28921) NOT SPECIFIED SARS-CoV-2 (COVID-19) by RT-PCR (HIGH RISK)2020-04-02 00:00:00 Test Item Value Reference Range Interpretation Comments SARS-CoV-2 INTERPRETATION (test NEGATIVE code = 57745) SOURCE (test code = 80593) NOT SPECIFIED GC AND CHLAMYDIA AMPLIFIED, [id number] 00:00:00 Test Item Value Reference Range Interpretation Comments GONORRHEA, TMA (test code = 16266) NEGATIVE CHLAMYDIA, TMA (test code = 47562) NEGATIVE GC AND CHLAMYDIA AMPLIFIED, [id number] 00:00:00 Test Item Value Reference Range Interpretation Comments GONORRHEA, TMA (test code = 22243) NEGATIVE CHLAMYDIA, TMA (test code = 26752) NEGATIVE PAP TEST, THINPREP, [id number] 00:00:00 Test Item Value Reference Range Interpretation Comments SOURCE: (test code = Cervical/Vaginal/Endo 8001) cervical SLIDES: (test code = 1 8011) LMP: (test code = 8021) 10/31/2019 SPECIMEN ADEQUACY: (test (NOTE) code = 30490) INTERPRETATION: (test NILM/NO EPITH. code = 07144) ABNORMALITY;SEE BELOW PRIZE COORDINATOR: (test Jenniffer code = 8101) FareedCT(ASCP)IAC LOCATION: (test code = (NOTE) 29262) CPT: (test code = 8140) (NOTE) PAP TEST, THINPREP, [id number] 00:00:00 Test Item Value Reference Range Interpretation Comments SOURCE: (test code = Cervical/Vaginal/Endo 8001) cervical SLIDES: (test code = 1 8011) LMP: (test code = 8021) 10/31/2019 SPECIMEN ADEQUACY: (test (NOTE) code = 03635) INTERPRETATION: (test NILM/NO EPITH. code = 35596) ABNORMALITY;SEE BELOW PRIZE COORDINATOR: (test Jenniffer code = 8101) FareedCT(ASCP)IAC LOCATION: (test code = (NOTE) 20207) CPT: (test code = 8140) (NOTE) HPV HIGH RISK WITH GENOTYPE, [id number] 00:00:00 Test Item Value Reference Range Interpretation Comments HPV HIGH RISK INTERP (test code = NEGATIVE 42222) HPV 16 (test code = 85507) NEGATIVE HPV 18 (test code = 50216) NEGATIVE HPV, HR, OTHER GENOTYPES (test code NEGATIVE = 85981) HPV HIGH RISK WITH GENOTYPE, [id number] 00:00:00 Test Item Value Reference Range Interpretation Comments HPV HIGH RISK INTERP (test code = NEGATIVE 28325) HPV 16 (test code = 91127) NEGATIVE HPV 18 (test code = 86766) NEGATIVE HPV, HR, OTHER GENOTYPES (test code NEGATIVE = 94625) GC AND CHLAMYDIA AMPLIFIED, [id number] 00:00:00 Test Item Value Reference Range Interpretation Comments GONORRHEA, TMA (test code = 78968) NEGATIVE CHLAMYDIA, TMA (test code = 77513) NEGATIVE GC AND CHLAMYDIA AMPLIFIED, [id number] 00:00:00 Test Item Value Reference Range Interpretation Comments GONORRHEA, TMA (test code = 53016) NEGATIVE CHLAMYDIA, TMA (test code = 70615) NEGATIVE PAP TEST, THINPREP, [id number] 00:00:00 Test Item Value Reference Range Interpretation Comments SOURCE: (test code = Cervical/Vaginal/Endo 8001) cervical SLIDES: (test code = 1 8011) LMP: (test code = 8021) 10/31/2019 SPECIMEN ADEQUACY: (test (NOTE) code = 93442) INTERPRETATION: (test NILM/NO EPITH. code = 13116) ABNORMALITY;SEE BELOW PRIZE COORDINATOR: (test Jenniffer code = 8101) MELODY Guerrier(ASCP)IAC LOCATION: (test code = (NOTE) 37970) CPT: (test code = 8140) (NOTE) PAP TEST, THINPREP, [id number] 00:00:00 Test Item Value Reference Range Interpretation Comments SOURCE: (test code = Cervical/Vaginal/Endo 8001) cervical SLIDES: (test code = 1 8011) LMP: (test code = 8021) 10/31/2019 SPECIMEN ADEQUACY: (test (NOTE) code = 84122) INTERPRETATION: (test NILM/NO EPITH. code = 94258) ABNORMALITY;SEE BELOW PRIZE COORDINATOR: (test Jenniffer code = 8101) MELODY Guerrier(ASCP)IAC LOCATION: (test code = (NOTE) 39049) CPT: (test code = 8140) (NOTE) HPV HIGH RISK WITH GENOTYPE, [id number] 00:00:00 Test Item Value Reference Range Interpretation Comments HPV HIGH RISK INTERP (test code = NEGATIVE 15580) HPV 16 (test code = 11734) NEGATIVE HPV 18 (test code = 74830) NEGATIVE HPV, HR, OTHER GENOTYPES (test code NEGATIVE = 63044) HPV HIGH RISK WITH GENOTYPE, [id number] 00:00:00 Test Item Value Reference Range Interpretation Comments HPV HIGH RISK INTERP (test code = NEGATIVE 71314) HPV 16 (test code = 26220) NEGATIVE HPV 18 (test code = 18885) NEGATIVE HPV, HR, OTHER GENOTYPES (test code NEGATIVE = 84956) GC AND CHLAMYDIA AMPLIFIED, [id number] 00:00:00 Test Item Value Reference Range Interpretation Comments GONORRHEA, TMA (test code = 01767) NEGATIVE CHLAMYDIA, TMA (test code = 61852) NEGATIVE GC AND CHLAMYDIA AMPLIFIED, [id number] 00:00:00 Test Item Value Reference Range Interpretation Comments GONORRHEA, TMA (test code = 18370) NEGATIVE CHLAMYDIA, TMA (test code = 68028) NEGATIVE PAP TEST, THINPREP, [id number] 00:00:00 Test Item Value Reference Range Interpretation Comments SOURCE: (test code = Cervical/Vaginal/Endo 8001) cervical SLIDES: (test code = 1 8011) LMP: (test code = 8021) 10/31/2019 SPECIMEN ADEQUACY: (test (NOTE) code = 04864) INTERPRETATION: (test NILM/NO EPITH. code = 62500) ABNORMALITY;SEE BELOW PRIZE COORDINATOR: (test Jenniffer code = 8101) MELODY Guerrier(ASCP)IAC LOCATION: (test code = (NOTE) 52614) CPT: (test code = 8140) (NOTE) PAP TEST, THINPREP, [id number] 00:00:00 Test Item Value Reference Range Interpretation Comments SOURCE: (test code = Cervical/Vaginal/Endo 8001) cervical SLIDES: (test code = 1 8011) LMP: (test code = 8021) 10/31/2019 SPECIMEN ADEQUACY: (test (NOTE) code = 66299) INTERPRETATION: (test NILM/NO EPITH. code = 00209) ABNORMALITY;SEE BELOW PRIZE COORDINATOR: (test Jenniffer code = 8101) MELODY Guerrier(ASCP)IAC LOCATION: (test code = (NOTE) 56928) CPT: (test code = 8140) (NOTE) HPV HIGH RISK WITH GENOTYPE, [id number] 00:00:00 Test Item Value Reference Range Interpretation Comments HPV HIGH RISK INTERP (test code = NEGATIVE 32439) HPV 16 (test code = 18551) NEGATIVE HPV 18 (test code = 47201) NEGATIVE HPV, HR, OTHER GENOTYPES (test code NEGATIVE = 49619) HPV HIGH RISK WITH GENOTYPE, [id number] 00:00:00 Test Item Value Reference Range Interpretation Comments HPV HIGH RISK INTERP (test code = NEGATIVE 41478) HPV 16 (test code = 60706) NEGATIVE HPV 18 (test code = 80746) NEGATIVE HPV, HR, OTHER GENOTYPES (test code NEGATIVE = 71851) GC AND CHLAMYDIA AMPLIFIED, [id number] 00:00:00 Test Item Value Reference Range Interpretation Comments GONORRHEA, TMA (test code = 69114) NEGATIVE CHLAMYDIA, TMA (test code = 68255) NEGATIVE PAP TEST, THINPREP, [id number] 00:00:00 Test Item Value Reference Range Interpretation Comments SOURCE: (test code = Cervical/Vaginal/Endo 8001) cervical SLIDES: (test code = 1 8011) LMP: (test code = 8021) 10/31/2019 SPECIMEN ADEQUACY: (test (NOTE) code = 10080) INTERPRETATION: (test NILM/NO EPITH. code = 48805) ABNORMALITY;SEE BELOW PRIZE COORDINATOR: (test Jenniffer code = 8101) MELODY Guerrier(ASCP)IAC LOCATION: (test code = (NOTE) 07783) CPT: (test code = 8140) (NOTE) HPV HIGH RISK WITH GENOTYPE, [id number] 00:00:00 Test Item Value Reference Range Interpretation Comments HPV HIGH RISK INTERP (test code = NEGATIVE 60319) HPV 16 (test code = 80697) NEGATIVE HPV 18 (test code = 50070) NEGATIVE HPV, HR, OTHER GENOTYPES (test code NEGATIVE = 92098) CBC W/AUTO [id number] 00:00:00 Test Item Value Reference Range Interpretation [...] code = 1015) 407 K/UL CBC W/AUTO [id number] 00:00:00 Test Item Value Reference Range Interpretation [...] code = 1015) 407 K/UL CBC W/AUTO [id number] 00:00:00 Test Item Value Reference Range Interpretation [...] COUNT (test code = 1015) 407 K/UL [id number] 00:00:00 Test Item Value Reference Range Interpretation Comments FERRITIN (test code = 2074) 38 NG/ML [id number] 00:00:00 Test Item Value Reference Range Interpretation Comments FERRITIN (test code = 5) 38 NG/ML IRON BINDING CAPACITY AND IRON AND % [id number] 00:00:00 Test Item Value Reference Range Interpretation Comments IRON, SERUM (test code = 2221) 58 UG/DL UNSATURATED IBC (test code = ) 231 UG/DL CALC TOTAL IBC (test code = 2076) 289 UG/DL CALC % IRON SAT (test code = 2078) 20 % IRON BINDING CAPACITY AND IRON AND % [id number] 00:00:00 Test Item Value Reference Range Interpretation Comments IRON, SERUM (test code = 2221) 58 UG/DL UNSATURATED IBC (test code = ) 231 UG/DL CALC TOTAL IBC (test code = 2076) 289 UG/DL CALC % IRON SAT (test code = 2078) 20 % [id number] 00:00:00 Test Item Value Reference Range Interpretation Comments TRANSFERRIN (test code = 4936) 258 MG/DL [id number] 00:00:00 Test Item Value Reference Range Interpretation Comments TRANSFERRIN (test code = 4936) 258 MG/DL CBC W/AUTO [id number] 00:00:00 Test Item Value Reference Range Interpretation [...] code = 1015) 407 K/UL CBC W/AUTO [id number] 00:00:00 Test Item Value Reference Range Interpretation [...] code = 1015) 407 K/UL CBC W/AUTO [id number] 00:00:00 Test Item Value Reference Range Interpretation [...] COUNT (test code = 1015) 407 K/UL [id number] 00:00:00 Test Item Value Reference Range Interpretation Comments FERRITIN (test code = 5) 38 NG/ML [id number] 00:00:00 Test Item Value Reference Range Interpretation Comments FERRITIN (test code = 5) 38 NG/ML IRON BINDING CAPACITY AND IRON AND % [id number] 00:00:00 Test Item Value Reference Range Interpretation Comments IRON, SERUM (test code = 2221) 58 UG/DL UNSATURATED IBC (test code = ) 231 UG/DL CALC TOTAL IBC (test code = 2076) 289 UG/DL CALC % IRON SAT (test code = 2078) 20 % IRON BINDING CAPACITY AND IRON AND % [id number] 00:00:00 Test Item Value Reference Range Interpretation Comments IRON, SERUM (test code = 2) 58 UG/DL UNSATURATED IBC (test code = 63836) 231 UG/DL CALC TOTAL IBC (test code = 2076) 289 UG/DL CALC % IRON SAT (test code = 2078) 20 % [id number] 00:00:00 Test Item Value Reference Range Interpretation Comments TRANSFERRIN (test code = 4936) 258 MG/DL [id number] 00:00:00 Test Item Value Reference Range Interpretation Comments TRANSFERRIN (test code = 4936) 258 MG/DL CBC W/AUTO [id number] 00:00:00 Test Item Value Reference Range Interpretation [...] code = 1015) 407 K/UL CBC W/AUTO [id number] 00:00:00 Test Item Value Reference Range Interpretation [...] code = 1015) 407 K/UL CBC W/AUTO [id number] 00:00:00 Test Item Value Reference Range Interpretation [...] COUNT (test code = 1015) 407 K/UL [id number] 00:00:00 Test Item Value Reference Range Interpretation Comments FERRITIN (test code = 2074) 38 NG/ML [id number] 00:00:00 Test Item Value Reference Range Interpretation Comments FERRITIN (test code = 2074) 38 NG/ML IRON BINDING CAPACITY AND IRON AND % [id number] 00:00:00 Test Item Value Reference Range Interpretation Comments IRON, SERUM (test code = 2) 58 UG/DL UNSATURATED IBC (test code = 61763) 231 UG/DL CALC TOTAL IBC (test code = 7) 289 UG/DL CALC % IRON SAT (test code = 9) 20 % IRON BINDING CAPACITY AND IRON AND % [id number] 00:00:00 Test Item Value Reference Range Interpretation Comments IRON, SERUM (test code = 2) 58 UG/DL UNSATURATED IBC (test code = 19218) 231 UG/DL CALC TOTAL IBC (test code = 7) 289 UG/DL CALC % IRON SAT (test code = 9) 20 % [id number] 00:00:00 Test Item Value Reference Range Interpretation Comments TRANSFERRIN (test code = 4936) 258 MG/DL [id number] 00:00:00 Test Item Value Reference Range Interpretation Comments TRANSFERRIN (test code = 4936) 258 MG/DL CBC W/AUTO [id number] 00:00:00 Test Item Value Reference Range Interpretation [...] code = 1015) 407 K/UL CBC W/AUTO [id number] 00:00:00 Test Item Value Reference Range Interpretation [...] COUNT (test code = 1015) 407 K/UL [id number] 00:00:00 Test Item Value Reference Range Interpretation Comments FERRITIN (test code = 5) 38 NG/ML IRON BINDING CAPACITY AND IRON AND % [id number] 00:00:00 Test Item Value Reference Range Interpretation Comments IRON, SERUM (test code = 2222) 58 UG/DL UNSATURATED IBC (test code = 78933) 231 UG/DL CALC TOTAL IBC (test code = 7) 289 UG/DL CALC % IRON SAT (test code = 2078) 20 % [id number] 00:00:00 Test Item Value Reference Range Interpretation Comments TRANSFERRIN (test code = 4936) 258 MG/DL Complete Metabolic [id number] 09:25:00 Test Item Value Reference Range Interpretation Comments NA (test code = 140 mmol/L 135-145 4487317482) K (test code = 3.7 mmol/L 3.5-5 5023692830) CL (test code = 108 mmol/L 98-108 1994160541) CO2 TOTAL (test code = 24 mmol/L 23-31 4066312793) AGAP (test code = 2-16 3536804302) BUN (test code = 10 mg/dL 7-23 6576982130) GLUCOSE (test code = 107 mg/dL 70-110 4649783173) CREATININE (test code 0.63 mg/dL 0.5-1.04 = 2264797526) TOTAL BILI (test code 0.5 mg/dL 0.1-1.1 = 6730617473) CALCIUM (test code = 9.4 mg/dL 8.6-10.6 4863983217) T PROTEIN (test code = 7.5 g/dL 6.3-8.2 8220167558) ALBUMIN (test code = 4.5 g/dL 3.5-5 7020477882) ALK PHOS (test code = 74 U/L 34-122 4674489045) ALTv (test code = 32 U/L 5-35 1742-6) AST(SGOT) (test code = 31 U/L 13-40 4211454485) eGFR Calculation mL/min/1.73m2 (Non-) (test code = 3457590062) eGFR Calculation mL/min/1.73m2 () (test code = 0487498843) MATEO (test code = MATEO) Association of [...] or urine or abnormalities in imaging tests). [facility], [id number] 09:25:00 Test Item Value Reference Range Interpretation Comments LIPASE (test code = 0092612565) 102 U/L 0-220 Lab Interpretation (test code = Normal 32186-3) [facility] [id number] 09:23:00 Test Item Value Reference Range Interpretation Comments APPEARANCE (test code = Clear Clear 5567752135) COLOR (test code = Yellow Yellow 9126237154) PH (test code = 4.8-8.0 3615387096) SP GRAVITY (test code = 1.003-1.030 7380402157) GLU U QUAL (test code = Normal Normal 9638996030) BLOOD (test code = 2+ Negative A 2600365428) KETONES (test code = Negative Negative 8438740881) PROTEIN (test code = Negative Negative 2887-8) UROBILIN (test code = Normal Normal 7654985465) BILIRUBIN (test code = Negative Negative 7414198848) NITRITE (test code = Negative Negative 6002567585) LEUK MEHDI (test code = Negative Negative 3323009440) RBC/HPF (test code = See_Comment [Autom ated message] 3112432490) The system tocario generated this result transmitted ref erence range: 0 - 3 HP F. The reference range was not used to int erpret this result as normal/abnormal . WBC/HPF (test code = See_Comment [Autom ated message] 4394734845) The system whic h generated this result transmitted ref erence range: 0 - 5 HP F. The reference range was not used to int erpret this result as normal/abnormal . BACTERIA (test code = Few Negative A 8093670421) MUCOUS (test code = Slight Negative LPF A 5038393367) SQ EPITH (test code = HPF 2398828552) Lab Interpretation (test Abnormal code = 55929-4) [facility] WITH [id number] 09:10:00 Test Item Value Reference Range Interpretation Comments WBC (test code = See_Comment [Automated 0390-2) message] The sy stem which generated this [...] RDW-SD (test code = 39.2 fL 39-49.9 42455-4) RDW-CV (test code = 12.1 % 12-15.5 788-0) PLT (test code = See_Comment [Automated 777-3) message] The sy stem which generated this result transmitted reference range : 166 - 358 10*3/ ?L. The reference r rachana was not used to interpret this result as normal/abnormal . MPV (test code = 9.2 fL 9.5-12.9 L 54281-1) NRBC/100 WBC (test See_Comment [Automat ed code = 5502898106) message] The system which generated this result transmitted reference range : 0.0 - 10.0 /100 WBCs. The refer ence range was not u sed to interpret th is result as normal/abnormal . NRBC x10^3 (test code <0.01 See_Comment [Auto mated = 2902518113) message] The s ystem which generated this result transmitted reference range : 10*3/?L. The reference range was not used to interpret this result as normal/abnormal . GRAN MAT (NEUT) % 65.3 % (test code = 770-8) IMM GRAN % (test code 0.50 % = 9242563033) LYMPH % (test code = 25.2 % 736-9) MONO % (test code = 7.1 % 5905-5) EOS % (test code = 1.5 % 713-8) BASO % (test code = 0.4 % 706-2) GRAN MAT x10^3(ANC) 7.13 10*3/uL 1.88-7.09 H (test code = 7024306807) IMM GRAN x10^3 (test 0.05 10*3/uL 0-0.06 code = 4456726515) LYMPH x10^3 (test code 2.75 10*3/uL 1.32-3.29 = 731-0) MONO x10^3 (test code 0.77 10*3/uL 0.33-0.92 = 742-7) EOS x10^3 (test code = 0.16 10*3/uL 0.03-0.39 711-2) BASO x10^3 (test code 0.04 10*3/uL 0.01-0.07 = 704-7) Lab Interpretation Abnormal (test code = 62981-2) [facility]PO[facility] [id number] 09:00:00 Test Item Value Reference Range Interpretation Comments POCT PREG (test code = 1605) Negative On board controls acceptable with Present C Line (test code = 3574) POCT PREG LOT # (test code = 3575) [id number] POCT PREG TEST DATE (test 04/16/2021 code = 3576) Lab Interpretation (test code = Normal 76613-4) [facility] HospitalPAP TEST, THINPREP, [id number] 00:00:00 Test Item Value Reference Range Interpretation Comments SOURCE: (test code = Cervical/Endocervical 8001) SLIDES: (test code = 1 8011) LMP: (test code = 11/25/2016 8021) SPECIMEN ADEQUACY: (NOTE) (test code = 84677) INTERPRETATION: (test NO EPITHELIAL code = 76431) ABNORMALITY SEE BELOW PRIZE COORDINATOR: MELODY Og (ASCP) (test code = 8101) LOCATION: (test code (NOTE) = 21490) CPT: (test code = (NOTE) 8140) PAP TEST, THINPREP, [id number] 00:00:00 Test Item Value Reference Range Interpretation Comments SOURCE: (test code = Cervical/Endocervical 8001) SLIDES: (test code = 1 8011) LMP: (test code = 11/25/2016 80) SPECIMEN ADEQUACY: (NOTE) (test code = 09560) INTERPRETATION: (test NO EPITHELIAL code = 32194) ABNORMALITY SEE BELOW PRIZE COORDINATOR: MELODY Og (ASCP) (test code = 8101) LOCATION: (test code (NOTE) = 44796) CPT: (test code = (NOTE) 8140) HPV HIGH RISK WITH GENOTYPE, [id number] 00:00:00 Test Item Value Reference Range Interpretation Comments HPV HIGH RISK INTERP (test code = NEGATIVE 64972) HPV 16 (test code = 90015) NEGATIVE HPV 18 (test code = 81711) NEGATIVE HPV, HR, OTHER GENOTYPES (test code NEGATIVE = 97908) HPV HIGH RISK WITH GENOTYPE, [id number] 00:00:00 Test Item Value Reference Range Interpretation Comments HPV HIGH RISK INTERP (test code = NEGATIVE 78467) HPV 16 (test code = 36608) NEGATIVE HPV 18 (test code = 21414) NEGATIVE HPV, HR, OTHER GENOTYPES (test code NEGATIVE = 19997) PAP TEST, THINPREP, [id number] 00:00:00 Test Item Value Reference Range Interpretation Comments SOURCE: (test code = Cervical/Endocervical 8001) SLIDES: (test code = 1 8011) LMP: (test code = 11/25/2016 8021) SPECIMEN ADEQUACY: (NOTE) (test code = 28593) INTERPRETATION: (test NO EPITHELIAL code = 15539) ABNORMALITY SEE BELOW PRIZE COORDINATOR: MELODY Og (ASCP) (test code = 8101) LOCATION: (test code (NOTE) = 31647) CPT: (test code = (NOTE) 8140) PAP TEST, THINPREP, [id number] 00:00:00 Test Item Value Reference Range Interpretation Comments SOURCE: (test code = Cervical/Endocervical 8001) SLIDES: (test code = 1 8011) LMP: (test code = 11/25/2016 8021) SPECIMEN ADEQUACY: (NOTE) (test code = 09383) INTERPRETATION: (test NO EPITHELIAL code = 87463) ABNORMALITY SEE BELOW PRIZE COORDINATOR: MELODY Og (ASCP) (test code = 8101) LOCATION: (test code (NOTE) = 33999) CPT: (test code = (NOTE) 8140) HPV HIGH RISK WITH GENOTYPE, [id number] 00:00:00 Test Item Value Reference Range Interpretation Comments HPV HIGH RISK INTERP (test code = NEGATIVE 18376) HPV 16 (test code = 24109) NEGATIVE HPV 18 (test code = 26361) NEGATIVE HPV, HR, OTHER GENOTYPES (test code NEGATIVE = 36286) HPV HIGH RISK WITH GENOTYPE, [id number] 00:00:00 Test Item Value Reference Range Interpretation Comments HPV HIGH RISK INTERP (test code = NEGATIVE 90749) HPV 16 (test code = 73417) NEGATIVE HPV 18 (test code = 44540) NEGATIVE HPV, HR, OTHER GENOTYPES (test code NEGATIVE = 69893) PAP TEST, THINPREP, [id number] 00:00:00 Test Item Value Reference Range Interpretation Comments SOURCE: (test code = Cervical/Endocervical 8001) SLIDES: (test code = 1 8011) LMP: (test code = 11/25/2016 8021) SPECIMEN ADEQUACY: (NOTE) (test code = 65192) INTERPRETATION: (test NO EPITHELIAL code = 99335) ABNORMALITY SEE BELOW PRIZE COORDINATOR: MELODY Og (ASCP) (test code = 8101) LOCATION: (test code (NOTE) = 82392) CPT: (test code = (NOTE) 8140) PAP TEST, THINPREP, [id number] 00:00:00 Test Item Value Reference Range Interpretation Comments SOURCE: (test code = Cervical/Endocervical 8001) SLIDES: (test code = 1 8011) LMP: (test code = 11/25/2016 8021) SPECIMEN ADEQUACY: (NOTE) (test code = 55462) INTERPRETATION: (test NO EPITHELIAL code = 15195) ABNORMALITY SEE BELOW PRIZE COORDINATOR: MELODY Og (ASCP) (test code = 8101) LOCATION: (test code (NOTE) = 31841) CPT: (test code = (NOTE) 8140) HPV HIGH RISK WITH GENOTYPE, [id number] 00:00:00 Test Item Value Reference Range Interpretation Comments HPV HIGH RISK INTERP (test code = NEGATIVE 92148) HPV 16 (test code = 36935) NEGATIVE HPV 18 (test code = 52965) NEGATIVE HPV, HR, OTHER GENOTYPES (test code NEGATIVE = 57346) HPV HIGH RISK WITH GENOTYPE, [id number] 00:00:00 Test Item Value Reference Range Interpretation Comments HPV HIGH RISK INTERP (test code = NEGATIVE 77351) HPV 16 (test code = 07274) NEGATIVE HPV 18 (test code = 10117) NEGATIVE HPV, HR, OTHER GENOTYPES (test code NEGATIVE = 59787) PAP TEST, THINPREP, [id number] 00:00:00 Test Item Value Reference Range Interpretation Comments SOURCE: (test code = Cervical/Endocervical 8001) SLIDES: (test code = 1 8011) LMP: (test code = 11/25/2016 8021) SPECIMEN ADEQUACY: (NOTE) (test code = 14353) INTERPRETATION: (test NO EPITHELIAL code = 62301) ABNORMALITY SEE BELOW PRIZE COORDINATOR: MELODY Og (ASCP) (test code = 8101) LOCATION: (test code (NOTE) = 00202) CPT: (test code = (NOTE) 8140) HPV HIGH RISK WITH GENOTYPE, [id number] 00:00:00 Test Item Value Reference Range Interpretation Comments HPV HIGH RISK INTERP (test code = NEGATIVE 43418) HPV 16 (test code = 80215) NEGATIVE HPV 18 (test code = 01783) NEGATIVE HPV, HR, OTHER GENOTYPES (test code NEGATIVE = 47173) CHLAMYDIA, AMPLIFIED, [id number] 00:00:00 Test Item Value Reference Range Interpretation Comments CHLAMYDIA, TMA (test code = 57718) NEGATIVE CHLAMYDIA, AMPLIFIED, [id number] 00:00:00 Test Item Value Reference Range Interpretation Comments CHLAMYDIA, TMA (test code = 57279) NEGATIVE GC, AMPLIFIED, [id number] 00:00:00 Test Item Value Reference Range Interpretation Comments GONORRHEA, TMA (test code = 24544) NEGATIVE GC, AMPLIFIED, [id number] 00:00:00 Test Item Value Reference Range Interpretation Comments GONORRHEA, TMA (test code = 28200) NEGATIVE CHLAMYDIA, AMPLIFIED, [id number] 00:00:00 Test Item Value Reference Range Interpretation Comments CHLAMYDIA, TMA (test code = 70412) NEGATIVE CHLAMYDIA, AMPLIFIED, [id number] 00:00:00 Test Item Value Reference Range Interpretation Comments CHLAMYDIA, TMA (test code = 03742) NEGATIVE GC, AMPLIFIED, [id number] 00:00:00 Test Item Value Reference Range Interpretation Comments GONORRHEA, TMA (test code = 56976) NEGATIVE GC, AMPLIFIED, [id number] 00:00:00 Test Item Value Reference Range Interpretation Comments GONORRHEA, TMA (test code = 98271) NEGATIVE CHLAMYDIA, AMPLIFIED, [id number] 00:00:00 Test Item Value Reference Range Interpretation Comments CHLAMYDIA, TMA (test code = 14114) NEGATIVE CHLAMYDIA, AMPLIFIED, [id number] 00:00:00 Test Item Value Reference Range Interpretation Comments CHLAMYDIA, TMA (test code = 86295) NEGATIVE GC, AMPLIFIED, [id number] 00:00:00 Test Item Value Reference Range Interpretation Comments GONORRHEA, TMA (test code = 83922) NEGATIVE GC, AMPLIFIED, [id number] 00:00:00 Test Item Value Reference Range Interpretation Comments GONORRHEA, TMA (test code = 30331) NEGATIVE CHLAMYDIA, AMPLIFIED, [id number] 00:00:00 Test Item Value Reference Range Interpretation Comments CHLAMYDIA, TMA (test code = 04900) NEGATIVE GC, AMPLIFIED, [id number] 00:00:00 Test Item Value Reference Range Interpretation Comments GONORRHEA, TMA (test code = 21184) NEGATIVE ACUTE HEPATITIS [id number] 00:00:00 Test Item Value Reference Range Interpretation Comments HEPATITIS A IgM (test code = NON-REACTIVE 55212) HEPATITIS B CORE IgM (test code NON-REACTIVE = 4644) HEPATITIS B SURF AG (test code = NON-REACTIVE 2739) HEPATITIS C ANTIBODY (test code NON-REACTIVE = 4675) INTERPRETATION HEPATITIS A: (NOTE) (test code = 2552) INTERPRETATION HEPATITIS B: (NOTE) (test code = 62885) INTERPRETATION HEPATITIS C: (NOTE) (test code = 84544) ACUTE HEPATITIS [id number] 00:00:00 Test Item Value Reference Range Interpretation Comments HEPATITIS A IgM (test code = NON-REACTIVE 96916) HEPATITIS B CORE IgM (test code NON-REACTIVE = 4644) HEPATITIS B SURF AG (test code = NON-REACTIVE 2739) HEPATITIS C ANTIBODY (test code NON-REACTIVE = 4675) INTERPRETATION HEPATITIS A: (NOTE) (test code = 2552) INTERPRETATION HEPATITIS B: (NOTE) (test code = 14726) INTERPRETATION HEPATITIS C: (NOTE) (test code = 56824) HIV AB/AG COMBO RFLX [id number] 00:00:00 Test Item Value Reference Range Interpretation Comments HIV 1/2 4TH GEN, RFLX CONF (test NON-REACTIVE code = 3514) HIV AB/AG COMBO RFLX [id number] 00:00:00 Test Item Value Reference Range Interpretation Comments HIV 1/2 4TH GEN, RFLX CONF (test NON-REACTIVE code = 3514) [id number] 00:00:00 Test Item Value Reference Range Interpretation Comments RPR RESULT (test code = NON-REACTIVE 3501) RPR TITER (test code = 3500) NOT INDIC. TITER [id number] 00:00:00 Test Item Value Reference Range Interpretation Comments RPR RESULT (test code = NON-REACTIVE 3501) RPR TITER (test code = 3500) NOT INDIC. TITER [id number] 00:00:00 Test Item Value Reference Range Interpretation Comments RPR RESULT (test code = NON-REACTIVE 3501) RPR TITER (test code = 3500) NOT INDIC. TITER ACUTE HEPATITIS [id number] 00:00:00 Test Item Value Reference Range Interpretation Comments HEPATITIS A IgM (test code = NON-REACTIVE 63818) HEPATITIS B CORE IgM (test code NON-REACTIVE = 4644) HEPATITIS B SURF AG (test code = NON-REACTIVE 2739) HEPATITIS C ANTIBODY (test code NON-REACTIVE = 4675) INTERPRETATION HEPATITIS A: (NOTE) (test code = 2552) INTERPRETATION HEPATITIS B: (NOTE) (test code = 88845) INTERPRETATION HEPATITIS C: (NOTE) (test code = 45827) ACUTE HEPATITIS [id number] 00:00:00 Test Item Value Reference Range Interpretation Comments HEPATITIS A IgM (test code = NON-REACTIVE 05109) HEPATITIS B CORE IgM (test code NON-REACTIVE = 4644) HEPATITIS B SURF AG (test code = NON-REACTIVE 2739) HEPATITIS C ANTIBODY (test code NON-REACTIVE = 4675) INTERPRETATION HEPATITIS A: (NOTE) (test code = 2552) INTERPRETATION HEPATITIS B: (NOTE) (test code = 22437) INTERPRETATION HEPATITIS C: (NOTE) (test code = 91755) HIV AB/AG COMBO RFLX [id number] 00:00:00 Test Item Value Reference Range Interpretation Comments HIV 1/2 4TH GEN, RFLX CONF (test NON-REACTIVE code = 3514) HIV AB/AG COMBO RFLX [id number] 00:00:00 Test Item Value Reference Range Interpretation Comments HIV 1/2 4TH GEN, RFLX CONF (test NON-REACTIVE code = 3514) [id number] 00:00:00 Test Item Value Reference Range Interpretation Comments RPR RESULT (test code = NON-REACTIVE 3501) RPR TITER (test code = 3500) NOT INDIC. TITER [id number] 00:00:00 Test Item Value Reference Range Interpretation Comments RPR RESULT (test code = NON-REACTIVE 3501) RPR TITER (test code = 3500) NOT INDIC. TITER [id number] 00:00:00 Test Item Value Reference Range Interpretation Comments RPR RESULT (test code = NON-REACTIVE 3501) RPR TITER (test code = 3500) NOT INDIC. TITER ACUTE HEPATITIS [id number] 00:00:00 Test Item Value Reference Range Interpretation Comments HEPATITIS A IgM (test code = NON-REACTIVE 03884) HEPATITIS B CORE IgM (test code NON-REACTIVE = 4644) HEPATITIS B SURF AG (test code = NON-REACTIVE 2739) HEPATITIS C ANTIBODY (test code NON-REACTIVE = 4675) INTERPRETATION HEPATITIS A: (NOTE) (test code = 2552) INTERPRETATION HEPATITIS B: (NOTE) (test code = 70086) INTERPRETATION HEPATITIS C: (NOTE) (test code = 47054) ACUTE HEPATITIS [id number] 00:00:00 Test Item Value Reference Range Interpretation Comments HEPATITIS A IgM (test code = NON-REACTIVE 25751) HEPATITIS B CORE IgM (test code NON-REACTIVE = 4644) HEPATITIS B SURF AG (test code = NON-REACTIVE 2739) HEPATITIS C ANTIBODY (test code NON-REACTIVE = 4675) INTERPRETATION HEPATITIS A: (NOTE) (test code = 2552) INTERPRETATION HEPATITIS B: (NOTE) (test code = 05832) INTERPRETATION HEPATITIS C: (NOTE) (test code = 89526) HIV AB/AG COMBO RFLX [id number] 00:00:00 Test Item Value Reference Range Interpretation Comments HIV 1/2 4TH GEN, RFLX CONF (test NON-REACTIVE code = 3514) HIV AB/AG COMBO RFLX [id number] 00:00:00 Test Item Value Reference Range Interpretation Comments HIV 1/2 4TH GEN, RFLX CONF (test NON-REACTIVE code = 3514) [id number] 00:00:00 Test Item Value Reference Range Interpretation Comments RPR RESULT (test code = NON-REACTIVE 3501) RPR TITER (test code = 3500) NOT INDIC. TITER [id number] 00:00:00 Test Item Value Reference Range Interpretation Comments RPR RESULT (test code = NON-REACTIVE 3501) RPR TITER (test code = 3500) NOT INDIC. TITER [id number] 00:00:00 Test Item Value Reference Range Interpretation Comments RPR RESULT (test code = NON-REACTIVE 3501) RPR TITER (test code = 3500) NOT INDIC. TITER ACUTE HEPATITIS [id number] 00:00:00 Test Item Value Reference Range Interpretation Comments HEPATITIS A IgM (test code = NON-REACTIVE 29018) HEPATITIS B CORE IgM (test code NON-REACTIVE = 4644) HEPATITIS B SURF AG (test code = NON-REACTIVE 2739) HEPATITIS C ANTIBODY (test code NON-REACTIVE = 4675) INTERPRETATION HEPATITIS A: (NOTE) (test code = 2552) INTERPRETATION HEPATITIS B: (NOTE) (test code = 98455) INTERPRETATION HEPATITIS C: (NOTE) (test code = 63238) HIV AB/AG COMBO RFLX [id number] 00:00:00 Test Item Value Reference Range Interpretation Comments HIV 1/2 4TH GEN, RFLX CONF (test NON-REACTIVE code = 3514) [id number] 00:00:00 Test Item Value Reference Range Interpretation Comments RPR RESULT (test code = NON-REACTIVE 3501) RPR TITER (test code = 3500) NOT INDIC. TITER [id number] 00:00:00 Test Item Value Reference Range Interpretation Comments RPR RESULT (test code = NON-REACTIVE 3501) RPR TITER (test code = 3500) NOT INDIC. TITER"
[2023-05-10 17:56] LABS: Specific Gravity 1.015 (1.005-1.030)
[2023-05-10 17:58] LABS: Absolute Lymphocytes (CBC) 2.6 K/uL (0.7-4.9); Hematocrit 43.5 % (36.0-45.0); Lymphocytes % 19.3 % (15.3-44.8); MCV 85.2 fL (80-100); Platelets 342 thou/uL (152-406); RBC Red Blood Cell Count 5.11 M/uL (3.86-4.86); Specific Gravity 1.015 (1.005-1.030); Urine Bacteria None Seen /HPF (<20); Urine Bilirubin NEGATIVE (Negative); Urine Blood 1+ (Negative); Urine Clarity Extremely Turbid (Clear); Urine Color Light-Yellow (Yellow); Urine Glucose NEGATIVE (Negative); Urine Mucus Slight /HPF (None Seen); Urine Protein NEGATIVE (Negative); Urine RBC <5 /HPF (None Seen); Urine Urobilinogen Normal (Normal); Urine pH 5.5 (5.0-7.0)
[2023-05-10] MEDS ORDERED: FAMOTIDINE 20 MG/2 ML VIAL IV ONE (18:03)
[2023-05-10] MEDS ORDERED: NA CHLORIDE 0.9% 1,000 ML ONE (18:03)
[2023-05-10 18:11] LABS: Albumin 3.6 g/dL (3.4-5.0); Bilirubin Total 0.3 mg/dL (0.2-1.0); Potassium 3.7 mEq/L (3.5-5.1); Protein, Total 7.6 g/dL (6.4-8.2)
--- NOTE | 2023-05-10 19:12 | RAD REPORT ---
EXAM DESCRIPTION: CT - Abdomen Pelvis W Contrast - 05/10/2023 6:50 pm CLINICAL HISTORY: Abdominal pain COMPARISON: January 2023 TECHNIQUE: Computed axial tomography of the abdomen pelvis was obtained. 100 cc Isovue-300 was admin istered intravenously. Oral contrast was not requested which limits evaluation of bowel and appendix All CT scans are performed using dose optimization technique as appropriate and may include automated exposure control or mA/KV adjustment according to patient size. FINDINGS: The liver, spleen, pancreas, adrenal and kidneys appear unremarkable. There is no evidence of diverticulitis. Normal appendix. No adnexal mass. Tubal ligation clips within the pelvis. IMPRESSION: No acute abnormality is displayed.
[2023-05-10] MEDS ORDERED: KETOROLAC 30 MG/ML INJ ONE (19:40)
--- NOTE | 2023-05-10 20:56 | ER ---
Nurse's Notes [facility] Name: Milli Seymour Age: 37 yrs Sex: Female : 1985 Arrival Date: 05/10/2023 Time: 17:08 Bed 17 Private MD: Diagnosis: Lower abdominal pain, unspecified Presentation: 05/10 17:16 Chief complaint: RLQ pain and nausea x 3 days. Denies V/D/fever. Coronavirus screen: At this time, the client does not indicate any symptoms associated with coronavirus-19. Ebola Screen: No symptoms or risks identified at this time. Initial Sepsis Screen: Does the patient meet any 2 criteria? No. Patient's initial sepsis screen is negative. Does the patient have a suspected source of infection? No. Patient's initial sepsis screen is negative. Risk Assessment: Do you want to hurt yourself or someone else? Patient reports no desire to harm self or others. Onset of symptoms was May 07, 2023. 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 - Social history:: Smoking status: Patient denies any tobacco usage or history of. Screenin:45 [facility] ED Fall Risk Assessment (Adult) History of falling in the last 3 months, me1 including since admission No falls in past 3 months (0 pts) Confusion or Disorientation No (0 pts) Intoxicated or Sedated No (0 pts) Impaired Gait No (0 pts) Mobility Assist Device Used No (0 pt) Altered Elimination No (0 pt) Score/Fall Risk Level 0 - 2 = Low Risk. Abuse screen: Denies threats or abuse. Nutritional screening: No deficits noted. Tuberculosis screening: No symptoms or risk factors identified. Assessment: 17:45 General: Appears uncomfortable, well groomed, well developed, well nourished, Behavior me1 is calm, cooperative, appropriate for age, Reports chills for fever for feeling ill for fatigue for RLQ pain and nausea x 3 days. Reports fever for the past 2 days. Pain: Complains of pain in right lower quadrant Pain does not radiate. Pain currently is 10 out of 10 on a pain scale. Quality of pain is described as sharp, Pain began 2-3 days ago. Is continuous. 17:45 Neuro: Level of Consciousness is awake, alert, obeys commands, Oriented to person, me1 place, time, situation, Appropriate for age. Cardiovascular: Capillary refill < 3 seconds Patient's skin is warm and dry. Respiratory: Airway is patent Respiratory effort is even, unlabored, Respiratory pattern is regular, symmetrical. GI: Abdomen is non-distended, Reports nausea, Pain is 10 out of 10 on a pain scale. 17:45 GI: Bowel sounds present X 4 quads. : Denies burning with urination. me1 Vital Signs: 17:16 BP 115 / 72; Pulse 82; Resp 16; Temp 98.4(O); Pulse Ox 100% on R/A; Weight 78.93 kg; hb Height 5 ft. 2 in. ; Pain 10/10; 17:45 BP 105 / 69; Pulse 74; Resp 17; Pulse Ox 97% on R/A; Pain 10/10; me1 19:00 BP 102 / 60; Pulse 80; Resp 17; Pulse Ox 98% ; cm10 20:17 Pain 3/10; me1 20:19 BP 103 / 77; Pulse 78; Resp 18; Pulse Ox 98% ; me1 21:09 BP 111 / 82; Pulse 90; Resp 18; Pulse Ox 99% on R/A; me1 17:16 Body Mass Index 31.82 (78.93 kg, 157.48 cm) hb 17:16 Pain Scale: Adult hb 17:45 Pain Scale: Adult me1 20:17 Pain Scale: Adult me1 ED Course: 17:10 Patient arrived in ED. im 17:11 Kelly Dunn FNP-C is PHCP. snw 17:11 Henry Hamilton MD is Attending Physician. snw 17:17 Triage completed. hb 17:40 Soledad Rinaldi, SETH is Primary Nurse. me1 17:40 Arm band placed on Patient placed in waiting room. me1 17:45 Patient has correct armband on for positive identification. Bed in low position. Call me1 light in reach. Side rails up X 1. Provided Education on: POC. Verbalized understanding. . 17:45 No provider procedures requiring assistance completed. Inserted saline lock: 22 gauge me1 in right antecubital area, using aseptic technique. 17:50 CBC with Diff Sent. me1 17:50 CMP Sent. me1 17:50 Lipase Sent. me1 17:50 Test, Urine Sent. me1 17:50 Urinalysis w/ reflexes Sent. me1 18:51 CT Abd/Pelvis - IV Contrast Only In Process Unspecified. EDMS 21:10 IV discontinued, intact, bleeding controlled, No redness/swelling at site. Pressure me1 dressing applied. Administered Medications: 17:59 Drug: NS 0.9% IV 1000 ml Route: IV; Rate: 1 bolus; Site: right antecubital; me1 19:36 Follow up: Response: No adverse reaction; IV Status: Completed infusion; IV Intake: cm10 1000ml 17:59 Drug: Famotidine IVP 20 mg Route: IVP; Site: right antecubital; me1 18:59 Follow up: Response: No adverse reaction; Pain is unchanged, physician notified me1 19:36 Drug: Ketorolac IVP 15 mg Route: IVP; Site: right antecubital; cm10 20:17 Follow up: Pain 3/10 Adult; Response: No adverse reaction; Pain is decreased me1 Medication: 17:45 VIS not applicable for this client. me1 Intake: 19:36 IV: 1000ml; Total: 1000ml. cm10 Outcome: 20:56 Discharge ordered by . snw 21:10 Discharged to home ambulatory. me1 21:10 Condition: stable 21:10 Discharge instructions given to patient, Instructed on discharge instructions, follow up and referral plans. medication usage, Demonstrated understanding of instructions, follow-up care, medications, Prescriptions given X 2. 21:11 Patient left the ED. me1 Signatures: Dispatcher [employer] EDMN Kelly Dunn, TEACHER'S ASSISTANT-C TEACHER'S ASSISTANT-Csnw Kady Mix RN RN Rachelle Saunders Clarissa RN RN 10 Soledad Rinaldi RN RN me1
--- NOTE | 2023-05-10 20:56 | EDPHYS ---
Physician Documentation [facility] Name: Milli Seymour Age: 37 yrs Sex: Female : 1985 Arrival Date: 05/10/2023 Time: 17:08 Bed 17 Private MD: ED Physician Henry Hamilton HPI: 05/10 17:24 This 37 yrs old Female presents to ER via Ambulatory with complaints of snw Abdominal Pain. 17:24 The patient presents with abdominal pain in the periumbilical area. right lower snw quadrant. Onset: The symptoms/episode began/occurred acutely, 3 day(s) ago, and became persistent. The symptoms do not radiate. Associated signs and symptoms: Pertinent positives: fever, nausea. The symptoms are described as constant. Severity of pain: At its worst the pain was moderate. It is unknown whether or not the patient has had similar symptoms in the past. The patient has not recently seen a physician. 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 - Social history:: Smoking status: Patient denies any tobacco usage or history of. ROS: 17:24 Eyes: Negative for injury, pain, redness, and discharge, ENT: Negative for injury, snw pain, and discharge, Neck: Negative for injury, pain, and swelling, Cardiovascular: Negative for chest pain, palpitations, and edema, Respiratory: Negative for shortness of breath, cough, wheezing, and pleuritic chest pain, Back: Negative for injury and pain, : Negative for injury, bleeding, discharge, and swelling, MS/Extremity: Negative for injury and deformity, Skin: Negative for injury, rash, and discoloration, Neuro: Negative for headache, weakness, numbness, tingling, and seizure, Psych: Negative for depression, anxiety, suicide ideation, homicidal ideation, and hallucinations. 17:24 Constitutional: Positive for body aches, fever. 17:24 Abdomen/GI: Positive for abdominal pain, of the right lower quadrant. Exam: 17:23 Constitutional: This is a well developed, well nourished patient who is awake, alert, snw and in no acute distress. Head/Face: Normocephalic, atraumatic. Eyes: Pupils equal round and reactive to light, extra-ocular motions intact. Lids and lashes normal. Conjunctiva and sclera are non-icteric and not injected. Cornea within normal limits. Periorbital areas with no swelling, redness, or edema. ENT: Nares patent. No nasal discharge, no septal abnormalities noted. Tympanic membranes are normal and external auditory canals are clear. Oropharynx with no redness, swelling, or masses, exudates, or evidence of obstruction, uvula midline. Mucous membranes moist. Neck: Trachea midline, no thyromegaly or masses palpated, and no cervical lymphadenopathy. Supple, full range of motion without nuchal rigidity, or vertebral point tenderness. No Meningismus. Chest/axilla: Normal chest wall appearance and motion. Nontender with no deformity. No lesions are appreciated. Cardiovascular: Regular rate and rhythm with a normal S1 and S2. No gallops, murmurs, or rubs. Normal PMI, no JVD. No pulse deficits. Respiratory: Lungs have equal breath sounds bilaterally, clear to auscultation and percussion. No rales, rhonchi or wheezes noted. No increased work of breathing, no retractions or nasal flaring. Back: No spinal tenderness. No costovertebral tenderness. Full range of motion. Skin: Warm, dry with normal turgor. Normal color with no rashes, no lesions, and no evidence of cellulitis. MS/ Extremity: Pulses equal, no cyanosis. Neurovascular intact. Full, normal range of motion. Neuro: Awake and alert, GCS 15, oriented to person, place, time, and situation. Cranial nerves II-XII grossly intact. Motor strength 5/5 in all extremities. Sensory grossly intact. Cerebellar exam normal. Normal gait. Psych: Awake, alert, with orientation to person, place and time. Behavior, mood, and affect are within normal limits. 17:23 Abdomen/GI: Inspection: abdomen appears normal, Bowel sounds: normal, Palpation: mild abdominal tenderness, in the right upper quadrant and right lower quadrant. Vital Signs: 17:16 BP 115 / 72; Pulse 82; Resp 16; Temp 98.4(O); Pulse Ox 100% on R/A; Weight 78.93 kg; hb Height 5 ft. 2 in. ; Pain 10/10; 17:45 BP 105 / 69; Pulse 74; Resp 17; Pulse Ox 97% on R/A; Pain 10/10; me1 19:00 BP 102 / 60; Pulse 80; Resp 17; Pulse Ox 98% ; cm10 20:17 Pain 3/10; me1 20:19 BP 103 / 77; Pulse 78; Resp 18; Pulse Ox 98% ; me1 21:09 BP 111 / 82; Pulse 90; Resp 18; Pulse Ox 99% on R/A; me1 17:16 Body Mass Index 31.82 (78.93 kg, 157.48 cm) hb 17:16 Pain Scale: Adult hb 17:45 Pain Scale: Adult me1 20:17 Pain Scale: Adult me1 MDM: 17:15 Patient medically screened. snw 17:25 Differential diagnosis: appendicitis, cholecystitis, Cholelithiasis, diverticulitis, snw Ectopic , gastritis, non-specific abd pain, Pyelonephritis, urinary tract infection. Data reviewed: vital signs, nurses notes. I considered the following discharge prescriptions or medication management in the emergency department Medications were administered in the Emergency Department. See MAR. Counseling: I had a detailed discussion with the patient and/or guardian regarding the historical points, exam findings, and any diagnostic results supporting the discharge/admit diagnosis, lab results, radiology results, the need for outpatient follow up. Special discussion: Based on the history and exam findings, there is no indication for further emergent testing or inpatient evaluation. I discussed with the patient/guardian the need to see the primary care provider for further evaluation of the symptoms. 05/10 17:22 Order name: CBC with Diff; Complete Time: 18:06 snw 05/10 17:22 Order name: CMP; Complete Time: 18:19 snw 05/10 17:22 Order name: Lipase; Complete Time: 18:19 snw 05/10 17:22 Order name: Test, Urine; Complete Time: 18:00 snw 05/10 17:22 Order name: Urinalysis w/ reflexes; Complete Time: 18:00 snw 05/10 17:22 Order name: CT Abd/Pelvis - IV Contrast Only; Complete Time: 19:16 snw 05/10 17:22 Order name: IV Saline Lock; Complete Time: 17:50 snw 05/10 17:22 Order name: Labs collected and sent; Complete Time: 17:50 snw Administered Medications: 17:59 Drug: NS 0.9% IV 1000 ml Route: IV; Rate: 1 bolus; Site: right antecubital; me1 19:36 Follow up: Response: No adverse reaction; IV Status: Completed infusion; IV Intake: cm10 1000ml 17:59 Drug: Famotidine IVP 20 mg Route: IVP; Site: right antecubital; me1 18:59 Follow up: Response: No adverse reaction; Pain is unchanged, physician notified me1 19:36 Drug: Ketorolac IVP 15 mg Route: IVP; Site: right antecubital; cm10 20:17 Follow up: Pain 3/10 Adult; Response: No adverse reaction; Pain is decreased me1 Disposition: 05/11 07:46 Co-signature as Attending Physician, Henry Hamilton MD I reviewed the patient's care rt provided by the Advanced Practice Provider and agree with the diagnosis and treatment plan. Disposition Summary: 05/10/23 20:56 Discharge Ordered Location: Home snw Condition: Stable snw Diagnosis - Lower abdominal pain, unspecified snw Followup: snw - With: Emergency Department - When: As needed - Reason: Worsening of condition Followup: snw - With: Private Physician - When: 2 - 3 days - Reason: Recheck today's complaints, Continuance of care, Re-evaluation by your physician Discharge Instructions: - Discharge Summary Sheet snw - Abdominal Pain, Adult snw - Colic snw - Gas and Gas Pains, Pediatric snw - [place] Diet snw Forms: - Work release form snw - Medication Reconciliation Form snw - Thank You Letter snw - Antibiotic Education snw - Prescription Opioid Use snw - Patient Portal Instructions snw - Leadership Thank You Letter snw Prescriptions: - Mobic 7.5 mg Oral Tablet - take 1 tablet by ORAL route once daily take with food; 20 tablet; Refills: 0, snw Product Selection Permitted - dicyclomine 20 mg Oral Tablet - take 1 tablet by ORAL route 3 times per day; 21 tablet; Refills: 0, Product snw Selection Permitted Signatures: Dispatcher [employer] Kelly Loo FNP-C FNP-Csnw Kady Mix RN RN Henry Hamilton MD MD rt Lisa Seymour RN RN 10 Soledad Rinaldi RN RN me1
[2023-05-10 21:17] VITALS: TEMP 98.4
[2023-05-10 21:22] VITALS: BP 111/82; O2SAT 99
== END 2023-05-10 21:11 | disposition home or self-care (01) ==
LOC: ER 17:08
DX: R10.31 Right lower quadrant pain (principal)
CPT/HCPCS: 36415; 74177; 80053; 81001; 81025; 83690; 85025; 96361; 96374; 96375; 99284; J7030; Q9967